=== PATIENT | female | born 1955 | race Caucasian/White ===

== ENCOUNTER 2020-07-01 09:28 | Outpatient (REF) | payer OTHER, SELFPAY ==
[2020-07-01 10:13] LABS: MANUAL DIFF FLAG NO
[2020-07-01 10:23] LABS: Basophils Percent Auto 0.2 % (0-2); Eosinophils Absolute Auto 0.1 X10*3/uL (0.0-0.4); Eosinophils Percent Auto 2.2 % (0-4); Hematocrit 36.3 % (37-47); Hemoglobin 11.9 g/dl (12.0-16.0); Imm Gran Abs Auto 0.01 X10*3/uL (0.00-0.03); Imm Gran Pct Auto 0.2 % (0.0-0.4); Lymphocytes Absolute Auto 1.1 X10*3/uL (1.2-4.9); Lymphocytes Percent Auto 25.7 % (20-40); Mean Corpuscular HGB Conc 32.8 g/dl (31.0-35.0); Mean Corpuscular Hemoglobin 30.2 pg (27.0-33.0); Mean Corpuscular Volume 92.1 fL (80-98); Mean Platelet Volume 9.6 fL (9.4-12.3); Monocytes Absolute Auto 0.3 X10*3/uL (0.1-1.2); Monocytes Percent Auto 6.1 % (2-11); Neutrophils Absolute Auto 2.7 X10*3/uL (2.0-8.3); Neutrophils Percent Auto 65.6 % (45-73); Platelet Count 301 X10*3/uL (160-400); Red Blood Count 3.94 X10*6/uL (4.20-5.50); White Blood Count 4.1 X10*3/uL (4.8-10.8)
[2020-07-01 10:51] LABS: Alanine Aminotransferase 14 U/L (0-31); Albumin Level 4.6 g/dL (3.5-5.0); Alkaline Phosphatase 80 U/L (39-117); Anion Gap 11 (12-20); Aspartate Amino Transferase 18 U/L (5-31); Bilirubin Total 0.5 mg/dL (0.0-1.0); Blood Urea Nitrogen 15 mg/dL (9-16); Calcium 9.2 mg/dL (8.4-10.2); Carbon Dioxide 28 mmol/L (22-29); Chloride 105 mmol/L (96-108); Cholesterol 197 mg/dL; Estimated Glomerular Filt Rate > 60; Glucose Fasting 99 mg/dL (60-99); HDL Cholesterol 61 mg/dL; LDL Cholesterol Calculated 121 mg/dl; Potassium 4.4 mmol/l (3.3-5.1); Sodium 140 mmol/L (135-145); Total Protein 7.2 g/dL (6.5-8.0); Triglycerides 79 mg/dL
[2020-07-01 13:26] LABS: TSH reflex Free T4 0.12 mIU/mL (0.32-4.0)
[2020-07-01 14:05] LABS: Free T4 (Free Thyroxine) 1.24 ng/dL (0.71-1.85)
[2020-07-06 19:09] LABS: Vitamin D 25-OH, D2 <4 ng/mL; Vitamin D 25-OH, D3 35 ng/mL; Vitamin D 25-OH, Total 35 ng/mL (30-100)
== END 2020-07-01 09:29 | disposition home or self-care (01) ==
LOC: HO.LAB 09:28
PROVIDERS: PCP Internal Medicine; Visit Provider Internal Medicine
DX: R42 Dizziness and giddiness (principal); E03.9 Hypothyroidism, unspecified; E55.9 Vitamin D deficiency, unspecified; E78.00 Pure hypercholesterolemia, unspecified; E11.9 Type 2 diabetes mellitus without complications
CPT/HCPCS: 36415; 80053; 80061; 82306; 84439; 84443; 85025

== ENCOUNTER 2020-07-29 11:14 | Outpatient (REF) | payer OTHER, SELFPAY ==
--- NOTE | 2020-07-29 11:20 | XR_ITS ---
EXAMINATION: XR RIGHT SHOULDER XR LEFT SHOULDER CLINICAL INFORMATION: Pain COMPARISON: None TECHNIQUE: 4 views right shoulder. 4 views left shoulder. FINDINGS: Right Shoulder: No acute fracture or subluxation. No suspicious focal lesion. There is mild sclerosis of the inferior glenoid. There is hypertrophic change involving the greater tuberosity. There are some erosions involving the expected area of insertion of the rotator cuff upon the proximal humerus. There is proliferative change involving the undersurface of the distal right clavicle. There is no suspicious abnormality in the visualized portion of the chest. There are thoracic osteophytes. Left Shoulder: There is no acute fracture or subluxation. No suspicious focal lesion. There are proliferative changes involving the greater tuberosity and there are erosions involving the proximal humerus including the expected insertion of the rotator cuff. There is some proliferative change involving the inferior aspect of the distal left clavicle. No significant downsloping of the acromion. Equivocal faint amorphous soft tissue calcification adjacent to the greater tuberosity on the axillary view. No suspicious abnormality in the visualized portions of the chest. There are osteophytes in the spine. XR/XR shoulder LT min 2V IMPRESSION: No acute abnormality. Arthritic changes bilaterally.
--- NOTE | 2020-07-29 11:20 | XR_ITS ---
EXAMINATION: XR RIGHT SHOULDER XR LEFT SHOULDER CLINICAL INFORMATION: Pain COMPARISON: None TECHNIQUE: 4 views right shoulder. 4 views left shoulder. FINDINGS: Right Shoulder: No acute fracture or subluxation. No suspicious focal lesion. There is mild sclerosis of the inferior glenoid. There is hypertrophic change involving the greater tuberosity. There are some erosions involving the expected area of insertion of the rotator cuff upon the proximal humerus. There is proliferative change involving the undersurface of the distal right clavicle. There is no suspicious abnormality in the visualized portion of the chest. There are thoracic osteophytes. Left Shoulder: There is no acute fracture or subluxation. No suspicious focal lesion. There are proliferative changes involving the greater tuberosity and there are erosions involving the proximal humerus including the expected insertion of the rotator cuff. There is some proliferative change involving the inferior aspect of the distal left clavicle. No significant downsloping of the acromion. Equivocal faint amorphous soft tissue calcification adjacent to the greater tuberosity on the axillary view. No suspicious abnormality in the visualized portions of the chest. There are osteophytes in the spine. XR/XR shoulder RT min 2V IMPRESSION: No acute abnormality. Arthritic changes bilaterally.
== END 2020-07-29 11:15 | disposition home or self-care (01) ==
LOC: HO.XRAY 11:14
PROVIDERS: PCP Internal Medicine; Visit Provider Student in an Organized Health Care Education/Training Program
DX: M25.511 Pain in right shoulder (principal); M25.512 Pain in left shoulder
CPT/HCPCS: 73030

== ENCOUNTER 2020-09-21 12:12 | Outpatient (REF) | payer OTHER, SELFPAY ==
--- NOTE | ~2020-09-21 | XR_ITS ---
EXAMINATION: KNEE X-RAY CLINICAL INFORMATION: Post knee replacement. Left knee pain. COMPARISON: Previous x-ray most recent May 2019 TECHNIQUE: Standing AP view of both knees and lateral view of the left knee FINDINGS: Left: There is a 3 component knee replacement in satisfactory position. No fracture or dislocation is seen. There is a small joint effusion. Standing AP view of the right knee demonstrates a medial compartment right knee replacement. XR/XR knee LT 2V IMPRESSION: Left knee: Satisfactory appearance of left knee replacement. Small joint effusion. Right knee: Stable appearance of medial compartment right knee replacement.
--- NOTE | ~2020-09-21 | XR_ITS ---
EXAMINATION: KNEE X-RAY CLINICAL INFORMATION: Post knee replacement. Left knee pain. COMPARISON: Previous x-ray most recent May 2019 TECHNIQUE: Standing AP view of both knees and lateral view of the left knee FINDINGS: Left: There is a 3 component knee replacement in satisfactory position. No fracture or dislocation is seen. There is a small joint effusion. Standing AP view of the right knee demonstrates a medial compartment right knee replacement. XR/XR knee standing BI IMPRESSION: Left knee: Satisfactory appearance of left knee replacement. Small joint effusion. Right knee: Stable appearance of medial compartment right knee replacement.
== END 2020-09-21 12:13 | disposition home or self-care (01) ==
LOC: HO.HOSX 12:12
PROVIDERS: Visit Provider Orthopaedic Surgery
DX: M25.562 Pain in left knee (principal); Z96.652 Presence of left artificial knee joint
CPT/HCPCS: 73560

== ENCOUNTER 2020-09-30 13:51 | Outpatient (REF) | payer OTHER, SELFPAY ==
[2020-09-30 15:51] LABS: Baso%MD 0.5 %; Hematocrit 33.8 % (37-47); Hemoglobin 11.1 g/dl (12.0-16.0); IG%MD 0.5 %; Lymph%MD 31.4 %; Mean Corpuscular HGB Conc 32.8 g/dl (31.0-35.0); Mean Corpuscular Hemoglobin 30.8 pg (27.0-33.0); Mean Corpuscular Volume 93.9 fL (80-98); Mean Platelet Volume 9.6 fL (9.4-12.3); Mono%MD 7.7 %; Neut%MD 57.9 %; Platelet Count 265 X10*3/uL (160-400); Red Cell Distribution Width 13.2 % (11.0-16.0); White Blood Count 4.4 X10*3/uL (4.8-10.8)
[2020-09-30 16:17] LABS: C Reactive Protein 0.53 mg/dL (< or = 0.50)
[2020-09-30 17:59] LABS: Erythrocyte Sedimentation Rate 19 MM/HR (0-20)
[2020-09-30 18:02] LABS: Band Neutrophils Percent 4 % (3-5); Eosinophils Absolute Manual 0.1 X10*3/UL (0.0-0.8); Eosinophils Percent Manual 2 % (0-4); Lymphocytes Percent Manual 23 % (20-40); Monocytes Absolute Manual 0.3 X10*3/uL (0.0-1.2); Monocytes Percent Manual 6 % (2-11); Neutrophils Percent Manual 65 % (45-73); Platelet Estimate NORMAL (NORMAL); RBC Morphology NORMAL
[2020-09-30 18:03] LABS: Platelet Morphology Comment NORMAL
== END 2020-09-30 13:52 | disposition home or self-care (01) ==
LOC: HO.LAB 13:51
PROVIDERS: PCP Internal Medicine; Visit Provider Orthopaedic Surgery
DX: M25.462 Effusion, left knee (principal); Z96.652 Presence of left artificial knee joint
CPT/HCPCS: 36415; 73565; 85007; 85027; 85652; 86140

== ENCOUNTER 2021-02-03 09:20 | Outpatient (REF) | payer OTHER, SELFPAY ==
[2021-02-03 13:31] LABS: Alanine Aminotransferase 15 U/L (0-31); Albumin Level 4.3 g/dL (3.5-5.0); Alkaline Phosphatase 71 U/L (39-117); Anion Gap 11 (12-20); Aspartate Amino Transferase 23 U/L (5-31); Bilirubin Total 0.5 mg/dL (0.0-1.0); Blood Urea Nitrogen 11 mg/dL (9-16); Calcium 9.4 mg/dL (8.4-10.2); Carbon Dioxide 30 mmol/L (22-29); Chloride 108 mmol/L (96-108); Cholesterol 133 mg/dL; Estimated Glomerular Filt Rate > 60; Glucose Fasting 99 mg/dL (60-99); HDL Cholesterol 49 mg/dL; LDL Cholesterol Calculated 72 mg/dl; Potassium 5.2 mmol/L (3.3-5.1); Sodium 144 mmol/L (135-145); Total Protein 6.7 g/dL (6.5-8.0); Triglycerides 61 mg/dL
[2021-02-03 13:45] LABS: TSH reflex Free T4 0.35 uIU/mL (0.32-4.0)
[2021-02-07 17:27] LABS: Vitamin D 25-OH, D2 <4 ng/mL; Vitamin D 25-OH, D3 36 ng/mL; Vitamin D 25-OH, Total 36 ng/mL (30-100)
== END 2021-02-03 09:21 | disposition home or self-care (01) ==
LOC: HO.LAB 09:20
PROVIDERS: PCP Internal Medicine; Visit Provider Internal Medicine
DX: E03.9 Hypothyroidism, unspecified (principal); E55.9 Vitamin D deficiency, unspecified; E78.00 Pure hypercholesterolemia, unspecified; E78.5 Hyperlipidemia, unspecified
CPT/HCPCS: 36415; 80053; 80061; 82306; 84443

== ENCOUNTER 2021-03-12 10:05 | Outpatient (REF) | payer OTHER, SELFPAY ==
[2021-03-12 11:47] LABS: Thyroid Stimulating Hormone 2.22 uIU/mL (0.32-4.0)
[2021-03-12 12:04] LABS: Alanine Aminotransferase 13 U/L (0-31); Albumin Level 4.1 g/dL (3.5-5.0); Alkaline Phosphatase 78 U/L (39-117); Anion Gap 12 (12-20); Aspartate Amino Transferase 17 U/L (5-31); Bilirubin Total 0.4 mg/dL (0.0-1.0); Blood Urea Nitrogen 10 mg/dL (9-16); Carbon Dioxide 27 mmol/L (22-29); Chloride 106 mmol/L (96-108); Cholesterol 167 mg/dL; Estimated Glomerular Filt Rate > 60; Glucose Fasting 107 mg/dL (60-99); HDL Cholesterol 52 mg/dL; LDL Cholesterol Calculated 100 mg/dl; Potassium 4.4 mmol/L (3.3-5.1); Sodium 141 mmol/L (135-145); Total Protein 6.7 g/dL (6.5-8.0); Triglycerides 77 mg/dL
[2021-03-12 12:32] LABS: Creatinine Urine 171.86 mg/dL; Microalbum/Creatinine Ratio Ur 8.1 ug/mg cr
== END 2021-03-12 10:06 | disposition home or self-care (01) ==
LOC: HO.LAB 10:05
PROVIDERS: PCP Internal Medicine; Visit Provider Internal Medicine
DX: E11.42 Type 2 diabetes mellitus with diabetic polyneuropathy (principal); E03.9 Hypothyroidism, unspecified; E78.5 Hyperlipidemia, unspecified
CPT/HCPCS: 36415; 80053; 80061; 82043; 84443

== ENCOUNTER 2021-04-09 10:59 | Outpatient (REF) | payer OTHER, SELFPAY ==
--- NOTE | ~2021-04-09 | XR_ITS ---
EXAMINATION: XR KNEE, LEFT XR HAND, RIGHT CLINICAL INFORMATION: Pain. COMPARISON: 09/30/2020 and 05/17/2017 TECHNIQUE: Three-view left knee and 3-view right hand. FINDINGS: Patient is status post left knee 3 component arthroplasty. No acute fracture or dislocation is evident. No evidence of loosening. There is a minimal stable left knee effusion. There is osteopenia present. Three views of the right hand demonstrate osteopenia. No acute fracture or dislocation is evident. Since the previous study, there has been amputation/resection of the 1st distal phalanx. No gas within the soft tissues is appreciated. There is some lucency seen within the 1st proximal phalanx just proximal to the amputation site. There is soft tissue prominence in the region of the amputation, however, no definite erosive change is appreciated. There is some mild spurring about the 5th proximal and distal interphalangeal joint. Previous 5th proximal phalanx fracture is healed. There are some stable lucent regions with surrounding sclerosis which may represent subchondral cysts or erosions about the head of the 3rd middle phalanx, base of the 5th middle phalanx, and base of the 2nd proximal phalanx. There is spurring about the 1st carpometacarpal joint. XR/XR hand RT 2V IMPRESSION: Stable appearance of left knee arthroplasty with minimal effusion. Osteopenia. Degenerative change of the right hand without acute fracture or dislocation. 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
--- NOTE | ~2021-04-09 | XR_ITS ---
EXAMINATION: XR KNEE, LEFT XR HAND, RIGHT CLINICAL INFORMATION: Pain. COMPARISON: 09/30/2020 and 05/17/2017 TECHNIQUE: Three-view left knee and 3-view right hand. FINDINGS: Patient is status post left knee 3 component arthroplasty. No acute fracture or dislocation is evident. No evidence of loosening. There is a minimal stable left knee effusion. There is osteopenia present. Three views of the right hand demonstrate osteopenia. No acute fracture or dislocation is evident. Since the previous study, there has been amputation/resection of the 1st distal phalanx. No gas within the soft tissues is appreciated. There is some lucency seen within the 1st proximal phalanx just proximal to the amputation site. There is soft tissue prominence in the region of the amputation, however, no definite erosive change is appreciated. There is some mild spurring about the 5th proximal and distal interphalangeal joint. Previous 5th proximal phalanx fracture is healed. There are some stable lucent regions with surrounding sclerosis which may represent subchondral cysts or erosions about the head of the 3rd middle phalanx, base of the 5th middle phalanx, and base of the 2nd proximal phalanx. There is spurring about the 1st carpometacarpal joint. XR/XR knee LT 3V IMPRESSION: Stable appearance of left knee arthroplasty with minimal effusion. Osteopenia. Degenerative change of the right hand without acute fracture or dislocation. 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
== END 2021-04-09 11:00 | disposition home or self-care (01) ==
LOC: HO.XRAY 10:59
PROVIDERS: PCP Internal Medicine; Visit Provider Internal Medicine
DX: M25.562 Pain in left knee (principal); M79.641 Pain in right hand
CPT/HCPCS: 73120; 73562

== ENCOUNTER 2021-04-14 07:01 | Outpatient (REF) | payer OTHER, SELFPAY ==
[2021-04-14 09:49] LABS: Alanine Aminotransferase 17 U/L (0-31); Albumin Level 4.4 g/dL (3.5-5.0); Alkaline Phosphatase 85 U/L (39-117); Anion Gap 12 (12-20); Aspartate Amino Transferase 21 U/L (5-31); Bilirubin Total 0.5 mg/dL (0.0-1.0); Blood Urea Nitrogen 9 mg/dL (9-16); C Reactive Protein 0.08 mg/dL (< or = 0.50); Calcium 9.5 mg/dL (8.4-10.2); Carbon Dioxide 30 mmol/L (22-29); Chloride 103 mmol/L (96-108); Estimated Glomerular Filt Rate > 60; Glucose Random 206 mg/dL (60-115); Potassium 4.2 mmol/L (3.3-5.1); Sodium 141 mmol/L (135-145); Total Protein 7.2 g/dL (6.5-8.0)
[2021-04-14 10:00] LABS: Erythrocyte Sedimentation Rate 7 MM/HR (0-20)
== END 2021-04-14 07:02 | disposition home or self-care (01) ==
LOC: HO.LAB 07:01
PROVIDERS: PCP Internal Medicine; Visit Provider Student in an Organized Health Care Education/Training Program
DX: M25.511 Pain in right shoulder (principal); M25.512 Pain in left shoulder
CPT/HCPCS: 36415; 80053; 85652; 86140

== ENCOUNTER → 2021-04-15 09:48 | Outpatient (BNVA) | payer OTHER, SELFPAY | PROVIDERS: PCP Internal Medicine; Visit Provider Student in an Organized Health Care Education/Training Program | DX: M25.512 Pain in left shoulder (principal); M25.511 Pain in right shoulder; E11.40 Type 2 diabetes mellitus with diabetic neuropathy, unspecified; I10 Essential (primary) hypertension; E78.00 Pure hypercholesterolemia, unspecified; E03.9 Hypothyroidism, unspecified; E55.9 Vitamin D deficiency, unspecified; Z87.891 Personal history of nicotine dependence; Z79.4 Long term (current) use of insulin; Z79.899 Other long term (current) drug therapy | CPT/HCPCS: 99212 ==

== ENCOUNTER 2021-07-27 10:45 | Outpatient (REF) | payer OTHER, SELFPAY ==
[2021-07-28 10:52] LABS: BV Int Neg Control Negative (Negative); BV Int Pos Control Positive (Positive)
== END 2021-07-27 10:46 | disposition home or self-care (01) ==
LOC: HO.LAB 10:45
PROVIDERS: PCP Internal Medicine; Visit Provider Obstetrics & Gynecology
DX: N76.0 Acute vaginitis (principal); B96.89 Other specified bacterial agents as the cause of diseases classified elsewhere
CPT/HCPCS: 87480; 87510; 87660; 99212

== ENCOUNTER 2021-08-16 11:57 | Outpatient (REF) | payer OTHER, SELFPAY | END 2021-08-16 11:58 | disposition home or self-care (01) | LOC: HO.LAB 11:57 | PROVIDERS: PCP Internal Medicine; Visit Provider Obstetrics & Gynecology | DX: N90.89 Other specified noninflammatory disorders of vulva and perineum (principal) | CPT/HCPCS: 56605; 88305 ==

== ENCOUNTER 2021-10-20 07:59 | Outpatient (REF) | payer MEDICARE, SELFPAY ==
[2021-10-20 08:22] LABS: MANUAL DIFF FLAG NO
[2021-10-20 08:39] LABS: Basophils Percent Auto 0.2 % (0-2); Eosinophils Absolute Auto 0.1 X10*3/uL (0.0-0.4); Eosinophils Percent Auto 3.3 % (0-4); Hematocrit 34.3 % (37.0-47.0); Hemoglobin 10.9 g/dl (12.0-16.0); Imm Gran Abs Auto 0.01 X10*3/uL (0.00-0.03); Imm Gran Pct Auto 0.2 % (0.0-0.4); Lymphocytes Absolute Auto 1.3 X10*3/uL (1.2-4.9); Lymphocytes Percent Auto 30.4 % (20-40); Mean Corpuscular HGB Conc 31.8 g/dl (31.0-35.0); Mean Corpuscular Hemoglobin 30.7 pg (27.0-33.0); Mean Corpuscular Volume 96.6 fL (80.0-98.0); Mean Platelet Volume 9.6 fL (9.4-12.3); Monocytes Absolute Auto 0.3 X10*3/uL (0.1-1.2); Monocytes Percent Auto 7.7 % (2-11); Neutrophils Absolute Auto 2.5 x10*3/uL (2.0-8.3); Neutrophils Percent Auto 58.2 % (45-73); Platelet Count 273 X10*3/uL (160-400); Red Blood Count 3.55 X10*6/uL (4.20-5.50); Red Cell Distribution Width 12.9 % (11.0-16.0); White Blood Count 4.3 X10*3/uL (4.8-10.8)
[2021-10-20 09:16] LABS: Alanine Aminotransferase 15 U/L (0-31); Albumin Level 4.2 g/dL (3.5-5.0); Alkaline Phosphatase 83 U/L (39-117); Anion Gap 12 (12-20); Aspartate Amino Transferase 19 U/L (5-31); Bilirubin Total 0.5 mg/dL (0.0-1.0); Blood Urea Nitrogen 11 mg/dL (9-16); Calcium 9.6 mg/dL (8.4-10.2); Carbon Dioxide 31 mmol/L (22-29); Chloride 104 mmol/L (96-108); Cholesterol 159 mg/dL; Estimated Glomerular Filt Rate > 60; Glucose Fasting 145 mg/dL (60-99); HDL Cholesterol 63 mg/dL; LDL Cholesterol Calculated 81 mg/dl; Potassium 4.8 mmol/L (3.3-5.1); Sodium 142 mmol/L (135-145); Total Protein 6.9 g/dL (6.5-8.0); Triglycerides 76 mg/dL
[2021-10-20 09:27] LABS: Thyroid Stimulating Hormone 3.81 uIU/mL (0.32-4.0)
[2021-10-20 10:19] LABS: Creatinine Urine 105.65 mg/dL; Microalbum/Creatinine Ratio Ur 5.6 ug/mg cr
[2021-10-24 14:26] LABS: Vitamin D 25-OH, D2 7 ng/mL; Vitamin D 25-OH, D3 21 ng/mL; Vitamin D 25-OH, Total 28 ng/mL (30-100)
== END 2021-10-20 08:00 | disposition home or self-care (01) ==
LOC: HO.LAB 07:59
PROVIDERS: PCP Internal Medicine; Visit Provider Internal Medicine
DX: E03.9 Hypothyroidism, unspecified (principal); E78.5 Hyperlipidemia, unspecified; E11.42 Type 2 diabetes mellitus with diabetic polyneuropathy; D64.9 Anemia, unspecified; E55.9 Vitamin D deficiency, unspecified
CPT/HCPCS: 36415; 80053; 80061; 82043; 82306; 84443; 85025

== ENCOUNTER 2021-12-01 08:15 | Outpatient (REF) | payer OTHER, SELFPAY ==
--- NOTE | ~2021-12-01 | XR_ITS ---
EXAMINATION: XR HAND, RIGHT CLINICAL INFORMATION: Right hand pain. COMPARISON: 04/09/2021 TECHNIQUE: PA, lateral, and oblique views of the right hand. FINDINGS: Presumed resection or amputation of the 1st distal phalanx, similar to previous. There are [id number] degenerative changes throughout the hand including the 1st CMC joint and the interphalangeal joints of the fingers. There is no acute osseous abnormality. No significant change. XR/XR hand RT min 3V IMPRESSION: No acute osseous abnormality. No significant change.
== END 2021-12-01 08:16 | disposition home or self-care (01) ==
LOC: HO.HOSX 08:15
PROVIDERS: Visit Provider Orthopaedic Surgery
DX: M65.4 Radial styloid tenosynovitis [de Quervain] (principal); M79.641 Pain in right hand; E11.42 Type 2 diabetes mellitus with diabetic polyneuropathy; I10 Essential (primary) hypertension; E03.9 Hypothyroidism, unspecified; E78.00 Pure hypercholesterolemia, unspecified; E53.8 Deficiency of other specified B group vitamins; E55.9 Vitamin D deficiency, unspecified; Z89.011 Acquired absence of right thumb; Z87.891 Personal history of nicotine dependence
CPT/HCPCS: 73130; 99202; J1100

== ENCOUNTER 2022-12-16 10:05 | Outpatient (REF) | payer OTHER, SELFPAY ==
[2022-12-16 11:27] LABS: Estimated Average Glucose 134 mg/dL; Hemoglobin A1c % 6.3 %
[2022-12-16 11:33] LABS: Microalbum/Creatinine Ratio Ur 13.5 ug/mg cr
[2022-12-16 11:51] LABS: Alanine Aminotransferase 24 U/L (0-31); Albumin Level 4.4 g/dL (3.5-5.0); Alkaline Phosphatase 61 U/L (39-117); Anion Gap 12 (12-20); Aspartate Amino Transferase 25 U/L (5-31); Bilirubin Total 0.3 mg/dL (0.0-1.0); Blood Urea Nitrogen 13 mg/dL (9-16); Calcium 9.6 mg/dL (8.4-10.2); Carbon Dioxide 28 mmol/L (22-29); Chloride 107 mmol/L (96-108); Cholesterol 210 mg/dL; Estimated Glomerular Filt Rate > 60; Glucose Fasting 134 mg/dL (60-99); HDL Cholesterol 59 mg/dL; LDL Cholesterol Calculated 132 mg/dl; Potassium 5.1 mmol/L (3.3-5.1); Sodium 142 mmol/L (135-145); Total Protein 6.8 g/dL (6.5-8.0); Triglycerides 95 mg/dL
[2022-12-16 11:56] LABS: Thyroid Stimulating Hormone 2.77 uIU/mL (0.32-4.0); Vitamin D 25-OH Total 65.5 ng/mL (>30)
== END 2022-12-16 10:06 | disposition home or self-care (01) ==
LOC: HO.LAB 10:05
PROVIDERS: PCP Internal Medicine; Visit Provider Internal Medicine
DX: E11.42 Type 2 diabetes mellitus with diabetic polyneuropathy (principal); E11.40 Type 2 diabetes mellitus with diabetic neuropathy, unspecified; E55.9 Vitamin D deficiency, unspecified; E03.9 Hypothyroidism, unspecified; E78.5 Hyperlipidemia, unspecified
CPT/HCPCS: 36415; 80053; 80061; 82043; 82306; 83036; 84443

== ENCOUNTER 2023-10-30 13:28 | Outpatient (AMB) | payer OTHER, SELFPAY ==
[2023-10-30 13:40] VITALS: BP 120/76; BMI 30.9
--- NOTE | 2023-10-30 13:40 | A.OFFPC_ITS ---
Vital Signs 10/30/23 13:40 Height 5 ft Weight 158 lb BMI 30.9 BP 120/76 Blood Pressure Location Lt brachial Position Sitting Intake Visit Reasons: ED follow up Intake Note: Patient here for a follow up depression Travel Accommodation Inspector Required: No Accompanied by: Self / Same As Patient Allergies dulaglutide [From Trulicity] Adverse Reaction (Intermediate, Verified 10/30/23 14:02) Vomiting metformin Adverse Reaction (Intermediate, Verified 10/30/23 14:02) Diarrhea Medication List - Last Reconciled 10/30/23 by Yola Hernandez MD alendronate 70 mg PO QWEEK 90 days atorvastatin 40 mg PO BEDTIME 90 days baclofen 10 mg PO TID blood sugar diagnostic (FreeStyle Lite Strips) Use 1 test strip once a day blood sugar diagnostic (Accu-Chek Dulce Plus test strips) As directed test daily blood sugar diagnostic (FreeStyle Lite Strips) Use 1 test strip once a day blood-glucose meter (Accu-Chek Dulce Plus Meter) As directed test daily cholecalciferol (vitamin D3) 25 mcg PO DAILY 90 days cyanocobalamin (vitamin B-12) (Vitamin B-12) 1,000 mcg PO DAILY [diabetic shoes with inserts As directed] diclofenac sodium 1% (Voltaren Arthritis Pain) 2 grams topical QID 30 days dulaglutide (Trulicity) 0.75 mg (0.5 mL) subcut QWEEK duloxetine 30 mg PO DAILY 90 days escitalopram oxalate 20 mg PO DAILY 90 days escitalopram oxalate 10 mg PO DAILY 90 days etodolac 300 mg PO BID 90 days ezetimibe 10 mg PO DAILY fluticasone propionate 50 mcg/actuation 1 spray intranasal DAILY 30 days folic acid 1 mg PO DAILY gabapentin 600 mg PO TID 30 days gabapentin 600 mg PO TID 30 days hydrochlorothiazide 50 mg PO QAM lancets As directed lancets As directed Accucheck lancets- daily linaclotide (Linzess) 145 mcg PO DAILY 90 days lisinopril 5 mg PO DAILY 90 days meclizine 25 mg PO DAILY naproxen 500 mg PO BID 90 days pantoprazole 40 mg PO DAILY 90 days pioglitazone 30 mg PO DAILY 90 days plecanatide (Trulance) 3 mg PO DAILY 90 days sennosides (Senna Lax) 8.6 mg PO BEDTIME PRN 90 days [SplashMaps chair As directed] Synthroid (levothyroxine) 88 mcg PO DAILY 90 days NS valacyclovir 1,000 mg PO DAILY 90 days valacyclovir 1,000 mg PO DAILY Tobacco use date assessed: 10/30/23 Fall risk assessment: No Falls in past year Last assessed Fall Risk: 10/30/23 Dental Screening Dental Screen Date: 10/30/23 Did you have a dental visit in the last 12 months?: Yes Did you have a dental problem in the last 6 months where you did not have access to dental care?: No Was dental information given to patient?: Patient has dentist HPI HPI Comments History of Present Illness Details This is a 68-year-old female with diabetes mellitus type 2, hypertension, hypothyroidism and moderate major depression that comes today for follow-up on her conditions. A1c within goal. Trulicity gives her vomiting and she would like to change it. She use metformin in the past causing diarrhea. Blood pressure stable. TSH was order. Moderate major depression has aggravated by the recently of her brother which about a month ago. I will increase duloxetine. No chest pain or shortness of breath. [facility] Medical History (Updated 10/30/23 @ 14:09 by Yola Hernandez MD) B12 deficiency Right sided sciatica Ingrown toenail Right hand pain Skin lesion Bicytopenia Hemifacial spasm Shortness of breath Neuropathy Mild depression Constipation Osteoporosis Vertigo Hypovitaminosis D Pure hypercholesterolemia Hypothyroidism Essential hypertension Diabetes mellitus Surgical History History of total abdominal hysterectomy and bilateral salpingo-oophorectomy History of amputation of right thumb History of total knee replacement History of bariatric surgery Family History Father Diabetes Mother Myocardial infarction Social History Housing: House Alcohol intake: former Patient Tobacco Use Status: Former Tobacco user Tobacco use type: Cigarette e-Cigarette/Vaping Use: Never Used Second Hand Smoke Exposure: No service: No Current occupational status: unemployed Current occupation: rt hand Cognitive needs: No Hearing needs: No Vision needs: No Questionnaire PHQ-9 Over the last 2 weeks, how often have you been bothered by any of the following problems? 1. Little interest or pleasure in doing things: more than half the days 2. Feeling down, depressed, or hopeless: nearly every day 3. Trouble falling or staying asleep, or sleeping too much: nearly every day 4. Feeling tired or having little energy: nearly every day 5. Poor appetite or overeating: more than half the days 6. Feeling bad about yourself - or that you are a failure or have let yourself or your family down: not at all 7. Trouble concentrating on things, such as reading the newspaper or watching television: more than half the days 8. Moving or speaking so slowly that other people could have noticed. Or the opposite - being so fidgety or restless that you have been moving around a lot more than usual: nearly every day 9. Thoughts that you would be better off or of hurting yourself in some way: not at all Total score: 18 Depression Screening Interpretation: Positive (no suicidal thoughts) Depression Screening Follow-up: Existing condition and Change in Medication Depression Screening Done: Yes 18316 - PHQ-9 Billing: Yes Source: Developed by Drs. Pasquale Mo, Joie Bosch, Garrett Islas and colleagues, with an educational nii from [employer]. Thrive Questionnaire Date Thrive assessed: 10/30/23 I am a: Patient What is your living situation today?: I have a steady place to live Within the past 12 months, did the food you bought not last and you didn't have the money to get more?: Never true Within the past 12 months, did you worry whether your food would run out before you got money to buy more?: Never true Do you have trouble paying for medicines?: No Do you have trouble getting transportation to medical appointments?: No Do you have trouble paying your heating and electricity bill?: No Do you have trouble taking care of your child, family member or friend?: No Do you have trouble with day-to-day activities such as bathing, preparing meals, shopping, managing finances, etc.?: No Are you currently unemployed and looking for a job?: No Are you interested in more education?: No Please select the resources that you would like help with: None Currently or been in a relationship where the following occur: no concerns reported THRIVE Score: 0 AUDIT C Alcohol Use Questionnaire (AUDIT-C) 1. How often do you have a drink containing alcohol?: Never Total Score: 0 EMY-7 AMB Questionnaire EMY-7 Date EMY - 7 assessed: 10/30/23 Feeling nervous, anxious, or on edge: 3 = Nearly every day Not being able to stop or control worryin = Several days Worrying too much about different things: 3 = Nearly every day Trouble relaxin = Several days Being so restless that it is hard to sit still: 0 = Not at all Becoming easily annoyed or irritable: 1 = Several days Feeling afraid as if something awful might happen: 3 = Nearly every day Total EMY-7 score (0-4 normal; 5-9 mild; 10-14 moderate; 15-21 severe): 12 Source: Developed by Drs. Pasquale Mo, Joie Bosch, Garrett Islas and colleagues, with an educational nii from [employer]. EMY-7 Assessment Billing EMY-7 Assessment Tool: EMY-7 Assessment 23126 Review of Systems Const All systems reviewed & are unremarkable except as noted in HPI and below Eyes Reports no additional complaints, Denies change in vision and Denies other visual disturbances Card Denies chest pain at rest, Denies chest pain with activity, Denies edema, Denies irregular heart rhythm, Denies claudication, Denies dyspnea, Denies dyspnea on exertion, Denies orthopnea, Denies paroxysmal nocturnal dyspnea and Denies slow heart rate Resp Denies cough, Denies dyspnea and Denies dyspnea on exertion GI Denies abdominal pain, Denies change in bowel habits, Denies excessive flatus, Denies nausea and Denies vomiting Denies urinary incontinence, Denies urinary hesitancy and Denies urinary urgency Musc Denies abnormal gait, Denies atrophy, Denies deformity and Denies limited range of motion Skin/Breast Denies bleeding lesions, Denies changing lesions and Denies rash Neuro Denies abnormal gait, Denies behavioral changes and Denies lack of coordination Psych Denies behavioral changes Physical exam (Primary Care) Vital Signs: Last Vital Signs BP 120/76 10/30/23 13:40 BMI result Body Mass Index 30.9 Tobacco/Smoking Status: Tobacco use Status Tobacco use date assessed 10/30/23 10/30/23 13:49 Patient Tobacco Use Status Former Tobacco user 10/30/23 13:49 Tobacco use type Cigarette 10/30/23 13:49 e-Cigarette/Vaping Use Never Used 10/30/23 13:49 PHQ-9: PHQ-9 Score PHQ-9: Total score 18 10/30/23 13:49 Depression Screening Interpretation: Positive (no suicidal thoughts) Depression Screening Follow-up: Existing condition and Change in Medication Thrive Assessment: Date of Thrive Assessment Date Thrive assessed 10/30/23 10/30/23 13:49 Currently or been in a relationship where the following occur: no concerns reported Eyes General: appearance normal, both eyes and all related structures Eyelids: Yes eyelids normal Conjunctivae: conjunctivae normal Neck Neck: Yes normal visual inspection and Yes supple Resp Effort & Inspection: normal respiratory effort Auscultation: clear to auscultation bilaterally Cardio Jugular venous distension: no JVD Rate: regular rate Rhythm: regular rhythm Heart sounds: S1 normal heart sound present and S2 normal heart sound present Extrem General: Yes full ROM Psych Affect: Sad affect present Results AMB Hemoglobin A1c AMB Hemoglobin A1c 6.7 % Last Edit by CAROLINE Veronica on 10/30/23 13:4 9 Results Reviewed Results Reviewed: Laboratory Last Values Hgb A1c (Clinic) 6.7 % (4.0-6.0) H 10/30/23 13:39 Assessment and Plan Assessment & Plan (1) Moderate major depression: Code(s): F32.1 - Major depressive disorder, single episode, moderate Plan: Continue escitalopram 30 mg. Increase duloxetine to 60 mg twice a day. Declines counseling. (2) Diabetes mellitus: Code(s): E11.9 - Type 2 diabetes mellitus without complications Qualifiers: Diabetes mellitus type: type 2 Diabetes mellitus intermediate insulin use: without intermission coordinator use Diabetes mellitus complication status: with neurologic complications Diabetes mellitus complication detail: with polyneuropathy Qualified Code(s): E11.42 - Type 2 diabetes mellitus with diabetic polyneuropathy Plan: Continue Actos. Start Ozempic. A1c goal is equal or less than 7%. (3) Essential hypertension: Code(s): I10 - Essential (primary) hypertension Plan: Continue lisinopril and hydrochlorothiazide. Blood pressure goal is equal or less than 130/80. (4) Hypothyroidism: Code(s): E03.9 - Hypothyroidism, unspecified Qualifiers: Hypothyroidism type: unspecified Qualified Code(s): E03.9 - Hypothyroidism, unspecified Plan: Continue levothyroxine. Monitor TSH. Orders: Orders AMB Hemoglobin A1c Today E11.9 - Type 2 diabetes mellitus without complications Medications: New semaglutide (Ozempic) for 4 weeks 0.25 mg (0.368 mL) subcut QWEEK 30 days 1.84 mL 0RF E11.9 - Type 2 diabetes mellitus without complications Changed From duloxetine 30 mg PO DAILY 90 days 90 caps 0RF To duloxetine 30 mg PO BID 90 days 180 caps 1RF Refilled linaclotide (Linzess) 145 mcg PO DAILY 90 days 90 caps 1RF Discontinued dulaglutide (Trulicity) Discontinued Reason: Patient Completed Course 0.75 mg (0.5 mL) subcut QWEEK 2 mL 6RF Coding Level of Care Code Est Pt Level 4 (94278) Diagnoses Moderate major depression F32.1 Type 2 diabetes mellitus with diabetic polyneuropathy, without long-term current use of insulin E11.42 Diabetes mellitus type: type 2 Diabetes mellitus intermediate insulin use: without intermediate use Diabetes mellitus complication status: with neurologic complications Diabetes mellitus complication detail: with polyneuropathy Essential hypertension I10 Hypothyroidism, unspecified type E03.9 Hypothyroidism type: unspecified Additional Codes EMY-7 Assessment Billing - EMY-7 Assessment Tool: EMY-7 Assessment 01237 ([id number]) Time Spent (min) 24
== END 2023-10-30 14:07 | disposition home or self-care (01) ==
PROVIDERS: PCP Internal Medicine; Visit Provider Internal Medicine
DX: F32.1 Major depressive disorder, single episode, moderate (principal); E11.42 Type 2 diabetes mellitus with diabetic polyneuropathy; I10 Essential (primary) hypertension; E03.9 Hypothyroidism, unspecified
CPT/HCPCS: 83036; 96127; 99214

== ENCOUNTER 2024-02-28 09:17 | Outpatient (REF) | payer OTHER, SELFPAY ==
[2024-02-28 09:39] LABS: MANUAL DIFF FLAG NO
[2024-02-28 10:18] LABS: Basophils Percent Auto 0.3 % (0-2); Eosinophils Absolute Auto 0.1 X10*3/uL (0.0-0.4); Eosinophils Percent Auto 1.7 % (0-4); Hematocrit 36.3 % (37.0-47.0); Hemoglobin 11.8 g/dl (12.0-16.0); Imm Gran Abs Auto 0.01 X10*3/uL (0.00-0.03); Imm Gran Pct Auto 0.3 % (0.0-0.4); Lymphocytes Absolute Auto 1.1 X10*3/uL (1.2-4.9); Lymphocytes Percent Auto 32.9 % (20-40); Mean Corpuscular HGB Conc 32.5 g/dl (31.0-35.0); Mean Corpuscular Hemoglobin 31.4 pg (27.0-33.0); Mean Corpuscular Volume 96.5 fL (80.0-98.0); Mean Platelet Volume 11.1 fL (9.4-12.3); Monocytes Absolute Auto 0.4 X10*3/uL (0.1-1.2); Monocytes Percent Auto 10.5 % (2-11); Neutrophils Absolute Auto 1.9 x10*3/uL (2.0-8.3); Neutrophils Percent Auto 54.3 % (45-73); Platelet Count 183 X10*3/uL (160-400); Red Blood Count 3.76 X10*6/uL (4.20-5.50); Red Cell Distribution Width 13.6 % (11.0-16.0); White Blood Count 3.4 X10*3/uL (4.8-10.8)
[2024-02-28 11:20] LABS: Alanine Aminotransferase 21 U/L (0-31); Albumin Level 4.2 g/dL (3.5-5.0); Alkaline Phosphatase 60 U/L (39-117); Anion Gap 12 (12-20); Aspartate Amino Transferase 24 U/L (5-31); Bilirubin Total 0.3 mg/dL (0.0-1.0); Blood Urea Nitrogen 14 mg/dL (9-16); Calcium 9.2 mg/dL (8.4-10.2); Carbon Dioxide 27 mmol/L (22-29); Chloride 106 mmol/L (96-108); Cholesterol 147 mg/dL (<200); Estimated Glomerular Filt Rate > 60; Glucose Fasting 125 mg/dL (60-99); HDL Cholesterol 59 mg/dL (>40); Iron 57 mcg/dL (30-160); LDL Cholesterol Calculated 78 mg/dL (<100); Percent Iron Saturation 16 % (15-50); Potassium 4.5 mmol/L (3.3-5.1); Sodium 140 mmol/L (135-145); Thyroid Stimulating Hormone 12.02 uIU/mL (0.32-4.0); Total Iron Binding Capacity 360 mcg/dL (228-428); Total Protein 6.9 g/dL (6.5-8.0); Triglycerides 50 mg/dL (<150); Unsaturated Iron Binding 303 ug/dL; Vitamin D 25-OH Total 41.8 ng/mL (>30)
[2024-02-28 11:21] LABS: Microalbum/Creatinine Ratio Ur 4.1 ug/mg cr (<30)
[2024-02-28 11:22] LABS: Folate 8.2 ng/mL (> or = 4.0); Vitamin B12 743 pg/mL (200-900)
== END 2024-02-28 09:18 | disposition home or self-care (01) ==
LOC: HO.LAB 09:17
PROVIDERS: PCP Internal Medicine; Visit Provider Internal Medicine
DX: D64.9 Anemia, unspecified (principal); E53.8 Deficiency of other specified B group vitamins; E78.5 Hyperlipidemia, unspecified; E55.9 Vitamin D deficiency, unspecified; E03.9 Hypothyroidism, unspecified; E11.42 Type 2 diabetes mellitus with diabetic polyneuropathy
CPT/HCPCS: 36415; 80053; 80061; 82043; 82306; 82570; 82607; 82746; 83540; 84443; 85025

== ENCOUNTER 2024-02-29 11:21 | Outpatient (AMB) | payer OTHER, SELFPAY ==
--- NOTE | 2024-02-29 11:26 | A.OFFPC_ITS ---
Vital Signs 02/29/24 11:31 Height 5 ft Weight 151 lb BMI 29.5 BP 126/58 L Blood Pressure Location Lt brachial Position Sitting Pulse 76 Pulse Source Pulse Oximeter Pulse Oximetry (%) 98 Oxygen Delivery Method Room Air Intake Visit Reasons: dm, depression Manager Process Required: No Accompanied by: Self / Same As Patient Allergies dulaglutide [From [facility]] Adverse Reaction (Intermediate, Verified 02/29/24 11:34) Vomiting metformin Adverse Reaction (Intermediate, Verified 02/29/24 11:34) Diarrhea Medication List - Last Reconciled 02/29/24 by Yola Hernandez MD alendronate 70 mg PO QWEEK 90 days atorvastatin 40 mg PO BEDTIME 90 days baclofen 10 mg PO TID blood sugar diagnostic (FreeStyle Lite Strips) Use 1 test strip once a day blood sugar diagnostic (Accu-Chek Dulce Plus test strips) As directed test daily blood sugar diagnostic (FreeStyle Lite Strips) Use 1 test strip once a day blood-glucose meter (Accu-Chek Dulce Plus Meter) As directed test daily blood-glucose meter (FreeStyle Lite Meter kit) As directed cholecalciferol (vitamin D3) 25 mcg PO DAILY 90 days cyanocobalamin (vitamin B-12) (Vitamin B-12) 1,000 mcg PO DAILY [diabetic shoes with inserts As directed] diclofenac sodium 1% (Voltaren Arthritis Pain) 2 grams topical QID 30 days duloxetine 30 mg PO DAILY 90 days duloxetine 60 mg PO DAILY 30 days escitalopram oxalate 10 mg PO DAILY 90 days escitalopram oxalate 20 mg PO DAILY 90 days etodolac 300 mg PO BID 90 days ezetimibe 10 mg PO DAILY folic acid 1 mg PO DAILY gabapentin 600 mg PO TID 30 days lancets As directed lancets As directed Accucheck lancets- daily levothyroxine (Synthroid) 100 mcg PO DAILY 90 days linaclotide (Linzess) 145 mcg PO DAILY 90 days lisinopril 2.5 mg PO DAILY 90 days naproxen 500 mg PO BID 90 days pantoprazole 40 mg PO DAILY 90 days pioglitazone 30 mg PO DAILY 90 days plecanatide (Trulance) 3 mg PO DAILY 90 days semaglutide (Ozempic) 1 mg (0.75 mL) subcut QWEEK 4 weeks sennosides (Senna Lax) 8.6 mg PO BEDTIME PRN 90 days [stair electric chair As directed] valacyclovir 1,000 mg PO DAILY Tobacco use date assessed: 10/30/23 Dental Screening Dental Screen Date: 10/30/23 HPI HPI Comments History of Present Illness Details This is a 69-year-old female with diabetes mellitus type 2, hypothyroidism, hyperlipidemia and severe major depression that comes today for follow-up on her conditions. A1c within goal. LDL close to goal. TSH elevated and I will increase Synthroid from 88 mcg to 100 mcg. TSH will be repeated in 6 weeks. Patient is aware. She does have severe major depression and she has been taking duloxetine 60 mg instead of 90 in therefore I will send 30 mg to complete 90 mg. She does have a counselor that she will start seen in about 2 weeks. No suicidal thoughts. [facility] Medical History (Updated 02/29/24 @ 12:09 by Yola Hernandez MD) Moderate major depression B12 deficiency Right sided sciatica Ingrown toenail Right hand pain Skin lesion Bicytopenia Hemifacial spasm Shortness of breath Neuropathy Mild depression Constipation Osteoporosis Vertigo Hypovitaminosis D Pure hypercholesterolemia Hypothyroidism Essential hypertension Diabetes mellitus Surgical History History of total abdominal hysterectomy and bilateral salpingo-oophorectomy History of amputation of right thumb History of total knee replacement History of bariatric surgery Family History Father Diabetes Mother Myocardial infarction Social History Housing: House Alcohol intake: former Patient Tobacco Use Status: Former Tobacco user Tobacco use type: Cigarette e-Cigarette/Vaping Use: Never Used Second Hand Smoke Exposure: No service: No Current occupational status: unemployed Current occupation: rt hand Cognitive needs: No Hearing needs: No Vision needs: No Questionnaire PHQ-9 Over the last 2 weeks, how often have you been bothered by any of the following problems? 1. Little interest or pleasure in doing things: nearly every day 2. Feeling down, depressed, or hopeless: nearly every day 3. Trouble falling or staying asleep, or sleeping too much: nearly every day 4. Feeling tired or having little energy: nearly every day 5. Poor appetite or overeating: more than half the days 6. Feeling bad about yourself - or that you are a failure or have let yourself o r your family down: nearly every day 7. Trouble concentrating on things, such as reading the newspaper or watching television: nearly every day 8. Moving or speaking so slowly that other people could have noticed. Or the opposite - being so fidgety or restless that you have been moving around a lot more than usual: more than half the days 9. Thoughts that you would be better off or of hurting yourself in some way: several days Total score: 23 Depression Screening Interpretation: Positive (no suicidal thoughts) Depression Screening Follow-up: Existing condition, In treatment, Community Mental Health Worker F/U and Follow-up Visit Requested Depression Screening Done: Yes 87863 - PHQ-9 Billing: Yes Source: Developed by Drs. Pasquale Mo, Joie Bosch, Garrett Islas and colleagues, with an educational nii from [employer]. Thrive Questionnaire Date Thrive assessed: 10/30/23 EMY-7 AMB Questionnaire EMY-7 Date EMY - 7 assessed: 10/30/23 Source: Developed by Drs. Pasquale Mo, Joie Bosch, Garrett Islas and colleagues, with an educational nii from [employer]. Review of Systems Const All systems reviewed & are unremarkable except as noted in HPI and below Card Denies chest pain at rest, Denies chest pain with activity, Denies edema, Denies irregular heart rhythm, Denies claudication, Denies dyspnea, Denies dyspnea on exertion, Denies orthopnea, Denies paroxysmal nocturnal dyspnea and Denies slow heart rate Resp Denies cough, Denies dyspnea and Denies dyspnea on exertion Neuro Denies lack of coordination Physical exam (Primary Care) Vital Signs: Last Vital Signs Pulse 76 02/29/24 11:31 BP 126/58 L 02/29/24 11:31 Pulse Ox 98 02/29/24 11:31 Oxygen Delivery Method Room Air 02/29/24 11:31 BMI result Body Mass Index 29.5 Tobacco/Smoking Status: Tobacco use Status Tobacco use date assessed 10/30/23 02/29/24 11:27 Patient Tobacco Use Status Former Tobacco user 02/29/24 11:27 Tobacco use type Cigarette 02/29/24 11:27 e-Cigarette/Vaping Use Never Used 02/29/24 11:27 PHQ-9: PHQ-9 Score PHQ-9: Total score 23 02/29/24 11:35 Depression Screening Interpretation: Positive (no suicidal thoughts) Depression Screening Follow-up: Existing condition, In treatment, Community Mental Health Worker F/U and Follow-up Visit Requested Thrive Assessment: Date of Thrive Assessment Date Thrive assessed 10/30/23 02/29/24 11:27 Resp Effort & Inspection: normal respiratory effort Auscultation: clear to auscultation bilaterally Cardio Jugular venous distension: no JVD Rate: regular rate Rhythm: regular rhythm Heart sounds: S1 normal heart sound present and S2 normal heart sound present Extrem General: Yes full ROM Results AMB Hemoglobin A1c AMB Hemoglobin A1c 6.3 % Last Edit by MARIELENA Rojas on 02/29/24 11:40 Assessment and Plan Assessment & Plan (1) Severe recurrent major depression without psychotic features: Code(s): F33.2 - Major depressive disorder, recurrent severe without psychotic features Plan: Continue duloxetine 90 mg. Continue escitalopram 30 mg. Follow-up with counselor. (2) Diabetes mellitus: Code(s): E11.9 - Type 2 diabetes mellitus without complications Qualifiers: Diabetes mellitus type: type 2 Diabetes mellitus keno terminal operator insulin use: without keno terminal operator use Diabetes mellitus complication status: with neurologic complications Diabetes mellitus complication detail: with polyneuropathy Qualified Code(s): E11.42 - Type 2 diabetes mellitus with diabetic polyneuropathy Plan: Continue Actos and Ozempic. A1c goal is equal or less than 7%. (3) Hypothyroidism: Code(s): E03.9 - Hypothyroidism, unspecified Qualifiers: Hypothyroidism type: unspecified Qualified Code(s): E03.9 - Hypothyroidism, unspecified Plan: Increase Synthroid from 88 mcg to 100 mcg. Repeat TSH in 6 weeks. (4) Pure hypercholesterolemia: Code(s): E78.00 - Pure hypercholesterolemia, unspecified Plan: Continue statins and Zetia. LDL goal is less than 70. Orders: Orders AMB Hemoglobin A1c Today E11.42 - Type 2 diabetes mellitus with diabetic polyneuropathy Thyroid Stimulating Hormone 6 Weeks E03.9 - Hypothyroidism, unspecified Medications: New lisinopril 2.5 mg PO DAILY 90 days 90 tabs 1RF levothyroxine (Synthroid) 100 mcg PO DAILY 90 days 90 tabs 0RF blood-glucose meter (FreeStyle Lite Meter kit) As directed 1 ea 0RF E11.42 - Type 2 diabetes mellitus with diabetic polyneuropathy Refilled escitalopram oxalate 10 mg PO DAILY 90 days 90 tabs 1RF diclofenac sodium 1% (Voltaren Arthritis Pain) apply to single elbow, wrist or hand; for hand includes palm/fingers/back of hand 2 grams topical QID 30 days 100 grams 1RF folic acid 1 mg PO DAILY 90 tabs 3RF duloxetine 30 mg PO DAILY 90 days 90 caps 1RF duloxetine 60 mg PO DAILY 30 days 30 caps 0RF escitalopram oxalate 20 mg PO DAILY 90 days 90 tabs 0RF semaglutide (Ozempic) 1 mg (0.75 mL) subcut QWEEK 4 weeks 3 mL 6RF E11.42 - Type 2 diabetes mellitus with diabetic polyneuropathy blood sugar diagnostic (FreeStyle Lite Strips) Use 1 test strip once a day 100 ea 1RF E11.42 - Type 2 diabetes mellitus with diabetic polyneuropathy Discontinued hydrochlorothiazide Discontinued Reason: Patient Completed Course 50 mg PO QAM 28 tabs 6RF Synthroid (levothyroxine) Discontinued Reason: No Longer Medically Relevant 88 mcg PO DAILY 90 days 90 tabs 1RF NS lisinopril Discontinued Reason: Patient Completed Course 5 mg PO DAILY 90 days 90 tabs 3RF fluticasone propionate 50 mcg/actuation Discontinued Reason: Patient Completed Course 1 spray intranasal DAILY 30 days 16 grams 1RF Coding Level of Care Code Est Pt Level 4 (72280) Complex EM visit Add On G2211 Diagnoses Severe recurrent major depression without psychotic features F33.2 Type 2 diabetes mellitus with diabetic polyneuropathy, without long-term current use of insulin E11.42 Diabetes mellitus type: type 2 Diabetes mellitus keno terminal operator insulin use: without shelter use Diabetes mellitus complication status: with neurologic complications Diabetes mellitus complication detail: with polyneuropathy Hypothyroidism, unspecified type E03.9 Hypothyroidism type: unspecified Pure hypercholesterolemia E78.00 Time Spent (min) 22
[2024-02-29 11:31] VITALS: BP 126/58; PULSE 76; O2SAT 98; BMI 29.5
== END 2024-02-29 11:48 | disposition home or self-care (01) ==
PROVIDERS: PCP Internal Medicine; Visit Provider Internal Medicine
DX: F33.2 Major depressive disorder, recurrent severe without psychotic features (principal); E11.42 Type 2 diabetes mellitus with diabetic polyneuropathy; E03.9 Hypothyroidism, unspecified; E78.00 Pure hypercholesterolemia, unspecified
CPT/HCPCS: 83036; 99214; G2211

== ENCOUNTER → 2024-04-25 13:50 | Outpatient (RCR) | payer OTHER, SELFPAY ==
[2021-01-11 11:57] VITALS: BP 128/56; PULSE 66; RESP 12; TEMP 36.4; O2SAT 96; BMI 33.4
--- NOTE | 2021-01-11 12:39 | PM.HEMONCPN ---
Medical Summary - Medical Summary Date of Service: 01/11/21 Chief complaint: Follow-up Medical Summary: Diagnosis: Chronic iron deficiency anemia Negative EGD. She refused colonoscopy in 2018. Interval History Interval history: Patient is here in follow-up. She was last seen in 2018. She is here because of fatigue and she thinks that she may need IV iron again. She tried oral iron in the past but it did not agree with her, cause severe constipation. She denies any exertional chest pain or shortness of breath. No dizziness or palpitation. She feels tired all the time and very sleepy. She denies any change in bowel habits. She denies hematochezia or melena. No dyspepsia or heartburn symptoms. She has received both doses of COVID-19 vaccination. She is not on any new medications and has not had any interim medical problems. Review of Systems - Constitutional Reports as per HPI, Reports no additional constitutional complaints - Cardiovascular Reports no additional cardiovascular complaints - Respiratory Reports no additional respiratory complaints - Gastrointestinal Reports no additional gastrointestinal complaints [facility] Medical History: Medical History (Last Updated 10/07/20 @ 11:07 by Yola Hernandez MD) Bicytopenia Constipation Diabetes mellitus Essential hypertension Hemifacial spasm Hypothyroidism Hypovitaminosis D Mild depression Neuropathy Osteoporosis Pure hypercholesterolemia Shortness of breath Vertigo Family History: Family History (Last Reviewed 10/07/20 @ 11:11 by Yola Hernandez MD) Father Diabetes Mother Myocardial infarction Surgical History: Surgical History (Last Reviewed 10/07/20 @ 11:12 by Yola Hernandez MD) History of amputation of right thumb History of bariatric surgery History of total abdominal hysterectomy and bilateral salpingo-oophorectomy History of total knee replacement Social History: Social History (Last Updated 01/11/21 @ 12:00 by Kaylah Zamorano) Alcohol History: Alcohol intake: former Alcohol History Details: Alcohol intake frequency: does not drink Tobacco History: Smoking Status: Former smoker Tobacco Type: Cigarette Packs Per Day: 2 Smoking Quit Date: 1991 Substance Use History: Use of substances other than those prescribed or required for medical reasons: No Smoking status: Former smoker Oncology Screenings - ECOG Performance Status ECOG Performance Status: 1 Home Medications and Allergies Home Medications Medication Instructions Recorded Confirmed Type lancets 28 gauge #100 ea 06/09/20 01/11/21 History linaclotide 145 mcg capsule 145 mcg PO DAILY 06/09/20 01/11/21 History meclizine 25 mg tablet 25 mg PO DAILY 06/09/20 01/11/21 History naproxen 500 mg tablet 500 mg PO BID 06/09/20 01/11/21 History Allergies Allergy/AdvReac Type Severity Reaction Status Date / Time No Known Allergies Allergy Verified 10/07/20 11:04 Exam Vital signs: Vital Signs Temp 97.5 F 01/11/21 11:57 Pulse 66 01/11/21 11:57 Resp 12 01/11/21 11:57 BP 128/56 L 01/11/21 11:57 Pulse Ox 96 01/11/21 11:57 Intake & Output 01/10/21 01/11/21 01/11/21 18:59 06:59 18:59 Other: Weight 77.6 kg Weight in Grams 97135 Weight 77.6 kg Body Mass Index 33.4 - Constitutional Present: no acute distress - Routine HEENT Exam Head: Present: normal inspection Eye: Present: EOMI - Routine Neck Exam Present: full ROM. Absent: lymphadenopathy - Routine Respiratory Exam Present: CTAB - Routine Cardiovascular Exam Cardiovascular: Present: S1, S2 - Routine Abdominal Exam Present: soft - Routine Extremities Exam Absent: pedal edema - Routine Skin Exam Present: intact. Absent: cyanosis Data - Labs CBC & Chem 7: 01/11/21 12:50 Progress Note: A/P (1) Iron deficiency anemia Status: Chronic Assessment and plan: 1. This is a 65-year-old woman with iron deficiency anemia, this has been chronic. She has had an endoscopy in 2016 which showed mild inflammation. She has never undergone colonoscopy. She reports no symptoms of acute or chronic blood loss or chronic GI symptoms. Celiac antibody panel was negative. Hematological workup showed mildly decreased vitamin B12 level, rest negative. Blood work today shows mild normocytic anemia with no evidence of iron deficiency. Vitamin B12 and folate levels are pending. Follow-up in 6 months. - Time Spent With Patient Total time spent is greater than 50% in coordination of care (as documented) at patient's floor/unit and/or counseling patient: 15 - 24 minutes
[2021-01-11 12:52] LABS: MANUAL DIFF FLAG NO
[2021-01-11 12:57] LABS: Basophils Percent Auto 0.4 % (0-2); Eosinophils Absolute Auto 0.1 X10*3/uL (0.0-0.4); Eosinophils Percent Auto 1.6 % (0-4); Hematocrit 35.3 % (37-47); Hemoglobin 11.4 g/dl (12.0-16.0); Imm Gran Abs Auto 0.02 X10*3/uL (0.00-0.03); Imm Gran Pct Auto 0.4 % (0.0-0.4); Lymphocytes Absolute Auto 1.4 X10*3/uL (1.2-4.9); Lymphocytes Percent Auto 26.9 % (20-40); Mean Corpuscular HGB Conc 32.3 g/dl (31.0-35.0); Mean Corpuscular Hemoglobin 31.1 pg (27.0-33.0); Mean Corpuscular Volume 96.2 fL (80-98); Mean Platelet Volume 9.4 fL (9.4-12.3); Monocytes Absolute Auto 0.3 X10*3/uL (0.1-1.2); Monocytes Percent Auto 5.4 % (2-11); Neutrophils Absolute Auto 3.3 X10*3/uL (2.0-8.3); Neutrophils Percent Auto 65.3 % (45-73); Platelet Count 269 X10*3/uL (160-400); Red Blood Count 3.67 X10*6/uL (4.20-5.50)
--- NOTE | 2021-01-11 13:33 | MHC.HEMONCMA ---
Patient came in for a follow up today, states that she is doing well. Clinical summary was reviewed and updated. Patient had labs and will return in 3 months for a follow up.
[2021-01-11 13:37] LABS: Iron 77 mcg/dL (30-160); Percent Iron Saturation 20 % (15-50); Total Iron Binding Capacity 392 mcg/dL (228-428); Unsaturated Iron Binding 315 ug/dL
[2021-01-11 14:12] LABS: Folate 2.6 ng/mL (> or = 4.0); Vitamin B12 212 pg/mL (200-900)
--- NOTE | 2021-01-29 09:11 | MHC.HEMONC ---
pt called and spoke to Leticia in [place]. She requests iron infusion because b12 pills are making her constipated. I spoke with Dr Ha and she wants pt to be sure to take folate as well. We will start b12 injections weekly x 4 then monthly. If these do not help her she could get iron.
--- NOTE | 2022-11-24 14:01 | MHC.HEMONC ---
Triage call-received call from [facility] requesting refill on B-12 1000 mcg daily. Request given to Dr Keller (covering for Dr Ha)
--- NOTE | 2022-11-24 16:28 | MHC.HEMONC ---
Script for B-12 1000mcg QD called to [facility] per Dr Keller request.
== END | disposition home or self-care (01) ==
LOC: HO.ONC 01-11 11:46
PROVIDERS: PCP Internal Medicine; Visit Provider Internal Medicine
DX: D50.9 Iron deficiency anemia, unspecified (principal)
CPT/HCPCS: 36415; 82607; 82746; 83540; 85025; 99213

== ENCOUNTER 2024-05-25 08:48 | Outpatient (REF) | payer OTHER, SELFPAY ==
[2024-05-25 09:54] LABS: Alanine Aminotransferase 20 U/L (0-31); Albumin Level 4.3 g/dL (3.5-5.0); Alkaline Phosphatase 76 U/L (39-117); Anion Gap 10 (12-20); Aspartate Amino Transferase 24 U/L (5-31); Bilirubin Total 0.4 mg/dL (0.0-1.0); Blood Urea Nitrogen 10 mg/dL (9-16); Calcium 9.7 mg/dL (8.4-10.2); Carbon Dioxide 30 mmol/L (22-29); Chloride 106 mmol/L (96-108); Estimated Glomerular Filt Rate > 60; Glucose Fasting 123 mg/dL (60-99); Potassium 4.3 mmol/L (3.3-5.1); Sodium 142 mmol/L (135-145)
[2024-05-25 10:10] LABS: TSH reflex Free T4 0.08 uIU/mL (0.32-4.0)
[2024-05-25 11:37] LABS: Free T4 (Free Thyroxine) 1.01 ng/dL (0.71-1.85)
== END 2024-05-25 08:49 | disposition home or self-care (01) ==
LOC: HO.LAB 08:48
PROVIDERS: PCP Internal Medicine; Referring Provider Internal Medicine; Visit Provider Physician Assistant
DX: E11.42 Type 2 diabetes mellitus with diabetic polyneuropathy (principal); E03.9 Hypothyroidism, unspecified
CPT/HCPCS: 36415; 80053; 84439; 84443

== ENCOUNTER 2024-06-05 10:42 | Outpatient (REF) | payer OTHER, SELFPAY ==
[2024-06-05 12:15] LABS: Appearance Urine Clear; Color Urine Yellow; Glucose Urine UA Negative (Negative); Leukocyte Esterase Urine Trace (Negative); Nitrite Urine Negative (Negative); PH 5.5 (5.0-9.0); Specific Gravity - Urine 1.025 (1.005-1.025); UMIC TRIGGER UACC YES; Urine Blood Negative (Negative); Urine Ketones Trace mg/dL (Negative); Urine Protein Negative (Neg-Trace)
[2024-06-05 12:19] LABS: Bacteria Urine None Seen (None Seen); Hyaline Casts Urine 0-2 /LPF (0-2); RBC Urine 0-2 /HPF (0-2); Squamous Epithelial Cell Urine 0-2 /HPF (0-2); WBC Urine 0-5 /HPF (0-5)
[2024-06-05 13:00] LABS: Thyroid Stimulating Hormone 0.16 uIU/mL (0.32-4.0)
== END 2024-06-05 10:43 | disposition home or self-care (01) ==
LOC: HO.LAB 10:42
PROVIDERS: PCP Internal Medicine; Visit Provider Internal Medicine
DX: E03.9 Hypothyroidism, unspecified (principal)
CPT/HCPCS: 36415; 81001; 81003; 84443

== ENCOUNTER 2024-07-25 13:16 | Outpatient (REF) | payer OTHER, SELFPAY ==
[2024-07-25 14:35] LABS: Thyroid Stimulating Hormone 6.13 uIU/mL (0.32-4.0)
--- OUTSIDE RECORDS SUMMARY | 2024-07-31 02:22 | XMS_ITS | Data Portability ---
Author Organization [place] [place] [facility] Address [address] [place] [phone] Care Team Providers Care Division Human Resources Manager Name Role Phone HIM CCA OTHER Assessment Encounter Date Assessment Date Assessment LastModified by Organization Details LastModified Time 05/03/2024 05/03/2024 I provided real -time medical direction via phone for this encounter and was available for additional phone-based assistance as needed. I have reviewed and agree with the Assessment and Plan as documented by the Automotive Worker Foreman. Patient given the opportunity to ask questions. Our service contacted for an assessment of: Rash As per above, patient patient with 2 areas of her feet that are of concern. Please see uploaded pictures. Neither is symptomatic. This has been present for quite some period of time. Per outbound sales specialist on the scene, vital signs are stable. Impression: The 1st picture appears to be postinflammatory hyperpigmentation. The 2nd picture appears to be eczema. Differential diagnosis includes fungal. Could also be trauma related to rubbing from shoes and slippers. Plan: Would recommend observation given it is asymptomatic. Could also consider some [id number] hydrocortisone cream. Advised that the patient contact her PCP and on her next appointment follow-up in person otherwise observe for any progression. Allergies: Reviewed PCP f/u: We discussed the diagnostic uncertainty of home visits and the risk associated with this. In this case, the patient and I felt this to be an acceptable and reasonable amount of risk given the benefit of avoiding an ED visit. [email or web address] Not available 05/03/2024 20:22:31 Plan of Treatment Reminders Order Date Submit Date Provider Last Modified By Organization Details Last Modified Time Details Appointments None record ed. Lab None record ed. Referral None record ed. Procedures None record ed. Surgeries None record ed. Imaging None record ed. Medication Orders None record ed. Patient TargetsNo targets recorded. Patient InstructionsNo instructions recorded. Reason for Referral None Reported. Medical Equipment None Reported. Medications Name Sig Start Date Stop Date Status Note LastModified by Organization Details LastModified Time delivery fee active Not Available Not Available Not Available atorvastatin 40 mg tablet active Not Available Not Available Not Available clindamycin HCl 300 mg capsule TAKE 1 CAPSULE BY MOUTH EVERY 6 HOURS UNTIL GONE active Not Available Not Available N ot Available ibuprofen 800 mg tablet TAKE 1 TABLET BY MOUTH EVERY 8 HOURS NEEDED FOR PAIN active Not Available Not Available No t Available Lidocaine Viscous 2 % mucosal solution active Not Available Not Available Not Available hydrochlorot hiazide 50 mg tablet active Not Available Not Available No t Available valacyclovir 1 gram tablet active Not Available Not Available Not Available alendronate 70 mg tablet active Not Available Not Available Not Available Synthroid 100 mcg tablet active Not Available Not Available Not Available cyanocobalam in (vit B-12) 1,000 mcg tablet active Not Available Not Available N ot Available acetaminophe n 500 mg tablet TAKE 2 TABLET BY MOUTH EVERY 6 HOURS NEEDED FOR PAIN active Not Available Not Available No t Available gabapentin 800 mg tablet active Not Available Not Available Not Available baclofen 10 mg tablet active Not Available Not Available No t Available pantoprazole 40 mg tablet,delay ed release active Not Available Not Available N ot Available Synthroid 88 mcg tablet active Not Available Not Available N ot Available lisinopril 5 mg tablet active Not Available Not Available No t Available ibuprofen 600 mg tablet active Not Available Not Available Not Available ferrous sulfate 325 mg (65 mg iron) tablet,delay ed release active Not Available Not Available N ot Available pioglitazone 30 mg tablet active Not Available Not Available Not Available fluticasone propionate 50 mcg/actuatio n nasal spray,suspen chadwick active Not Available Not Available Not Available lisinopril 2.5 mg tablet active Not Available Not Available Not Available naproxen 500 mg tablet active Not Available Not Available No t Available amoxicillin 875 mg-potassium clavulanate 125 mg tablet active Not Available Not Available Not Available oxycodone 5 mg tablet TAKE 1 TABLET BY MOUTH EVERY 4 HOURS NEEDED FOR PAIN DO NOT OPERATE HEAVY MACHINERY UNDER THE INFLUENCE active Not Available Not Available No t Available Botox 100 unit injection active Not Available Not Available No t Available escitalopram 10 mg tablet active Not Available Not Available Not Available escitalopram 20 mg tablet active Not Available Not Available Not Available ezetimibe 10 mg tablet active Not Available Not Available No t Available Vitamin D3 25 mcg (1,000 unit) capsule active Not Available Not Available Not Available duloxetine 30 mg capsule,sony yed release active Not Available Not Available Not Available duloxetine 60 mg capsule,sony yed release active Not Available Not Available Not Available chlorhexidin e gluconate 0.12 % mouthwash TAKE 1 CAPFUL BY MOUTH THREE TIMES A DAY AFTER MEALS. SWISH AND HOLD FOR 2 MINUTES THEN EXPECTORATE active Not Available Not Available Not Available FreeStyle Lite Strips active Not Available Not Available Not Available FreeStyle Glouster Lite kit active Not Available Not Available Not Available diclofenac 1 % topical gel active Not Available Not Available Not Available Refresh Lacri-Lube 56.8 %-42.5 % eye ointment active Not Available Not Available Not Available Linzess 145 mcg capsule active Not Available Not Available Not Available Trulicity 1.5 mg/0.5 mL subcutaneous pen injector active Not Available Not Available Not Available Trulance 3 mg tablet active Not Available Not Available No t Available Ozempic 1 mg/dose (4 mg/3 mL) subcutaneous pen injector active Not Available Not Available Not Available Ozempic 0.25 mg or 0.5 mg (2 mg/3 mL) subcutaneous pen injector active Not Available Not Available Not Available Vitals Date Recorded Respiratory rate Heart rate Oxygen saturation Oxygen saturation in Arterial blood by Pulse oximetry Body temperature Systolic blood pressure Diastolic blood pressure Provider Name and Address Organization Details Last Updated DateTime 4 16 /min 68 /min 98 % 98 % 98.4 [degF] 122 mm[Hg] 58 mm[Hg] Not Available [facility] - production 4 17:29:07 Social History None recorded. Functional Status None recorded. Mental Status None recorded. Family History Nothing Reported. Medical History No medical history recorded. Gynecological HistoryNo gynecological history recorded. Obstetrics History GPAL:G 0 P 0 0 0 0 Past Encounters Encounter ID Performer Location Encounter Start Date Encounter Closed Date Diagnosis/Indication Diagnosis SNOMED-CT Code Diagnosis ICD10 Code [id number] Bette Queen MD [facility] [address] [place] [phone] 05/03/2024 17:28:54 05/03/2024 22:44:04 Localized eruption of skin [id number] R21 Health Concerns Section Related Observation LastModified by Organization Detai ls LastModified Time None Recorded Concern Status LastModified by Organization Details LastModified Time None Recorded Advance Directives Directive None Recorded Payers Encounter Date Sequence Insurance Name Policy Number Policy Pinto Covered Member ID Pinto Member ID Guarantor Name 05/03/[address] [facility] - DOS ON OR AFTER 2022 - DUAL ELIGIBLE - HALF-WAY OPTIONS AND ONE CARE (MEDICARE REPLACEMENT/AD VANTAGE - HMO) Dulce German Zepeda [id number] Dulce Corcoran German Zepeda Notes Date Note Type Note Provider Name and Address Organization Details Recorded Time 05/03/2024 text/html HPI: Mbr is a 69 year old Greenlandic speaking female with significant medial hx including but not all inclusive of hypothyroidism, arthritis, herpes, HTN, forgetfulness, amputation of finger (traumatic amp), osteoporosis, persistent depressive disorder, Type 2 DM, asthma, iron deficiency anemia, Jay's Palsy, and MDD. NKDA. [facility] medical mbr transfer call to the [facility]. Mbr reported foot wound and DM related. Shayna #[id number] from [employer] assisted with call. Mbr describes left foot wound as red in color and non-open. Mbr describes as dry area on foot that sloughs off and leaves nickel sized red colored area. Mbr would like someone could look at it. Mbr denies fever, SOB or chest pain. Offered [facility] and Mbr agreed. Confirmed address and phone/[phone]. Mbr will need Fire Hazard Inspector. Instructed Mbr to go to ER if worsening s/s or develops high fever, drainage, increased redness, chest pain or SOB. Mbr agreed to do. Sent GC activity to CP referencing this TE and Mbr triage. .................... .................... .................... .................... .................... .................... .................... . [facility] Nurse Triage Notes (Nisreen Gonzalez): Chief Complaints: Wound Care PMH: COPD/Asthma, Diabetes, Hypertension, Amputation Comments: HPI reviewed. No further information needed to process visit. .................... .................... .................... .................... .................... .................... .................... . Automotive Worker Foreman Note From Khoa Vazquez: Dispatched to a female pt. with a wound on her foot. pt. was found alert and oriented x3 c/o two spots of concerns on her left foot. one on the inside and one of the outside of her foot no pain but did note they were itchy and had been there about 2 weeks. language barrier all communication done through a slab installer. no history of eczema but did show a history of herpes. pt. provided medication list and noted she was not putting any cream on the area yet. pt. vitals assessed on scene. -chest pain -fever -shortness of breath -abd pain -nvd -weakness -chills -neck pain -back pain -head pain -blurred vision -urinary issues -bowel issues. pt. assessment airway open and patent breathing non labored circulation +radial pulse -heent abnormalities -jvd -tracheal deviation +and= chest rise and fall abd soft and non tender pelvis in tact +cms in all extremities -dcapbtls -stroke scale findings. [facility] [place] and noted it was potentially athletes foot or eczema and if it was not causing her pain or any signs of infection to apply hydrocortisone cream to the area and it would heal. red flag warnings discussed and advised to call 911 if conditions worsened.all times are approx.report completed by kristen vazquez. .................... .................... .................... .................... .................... .................... .................... . Disposition: Fulfilled Bette Queen MD [address] [facility],[address] [facility], [place], [phone], [facility] Shop [facility] 05/03/2024 20:22:50 OBGyn Episode No OBEpisode recorded.
--- OUTSIDE RECORDS SUMMARY | 2024-07-31 02:22 | XMS_ITS | Continuity of Care Document ---
Author Organization [employer] [place] [facility] [employer] Address [address] [place] [phone] Care Team Providers Care Gardening Manager Name Role Phone HIM CCA OTHER Assessment Encounter Date Assessment Date Assessment LastModified by Organization Details LastModified Time 05/03/2024 05/03/2024 I provided real -time medical direction via phone for this encounter and was available for additional phone-based assistance as needed. I have reviewed and agree with the Assessment and Plan as documented by the Low Pressure Boiler Tender. Patient given the opportunity to ask questions. Our service contacted for an assessment of: Rash As per above, patient patient with 2 areas of her feet that are of concern. Please see uploaded pictures. Neither is symptomatic. This has been present for quite some period of time. Per ged tutor on the scene, vital signs are stable. Impression: The 1st picture appears to be postinflammatory hyperpigmentation. The 2nd picture appears to be eczema. Differential diagnosis includes fungal. Could also be trauma related to rubbing from shoes and slippers. Plan: Would recommend observation given it is asymptomatic. Could also consider some fror-xqw-yquovzi hydrocortisone cream. Advised that the patient contact [...] Not Available Not Available Not Available FreeStyle [place] Lite kit active Not Available Not Available [...] Diagnosis/Indication Diagnosis SNOMED-CT Code Diagnosis ICD10 Code [id number] Bette Queen MD [facility] - [facility] [address] [place] [phone] 05/03/2024 17:28:54 05/03/2024 22:44:04 Localized eruption of skin [id number] R21 Health Concerns Section Related Observation LastModified by Organization Detai ls LastModified Time None Recorded Concern Status LastModified by Organization Details LastModified Time None Recorded Payers Encounter Date Sequence Insurance Name Policy Number Policy Pinto Covered Member ID Pinto Member ID Guarantor Name 05/03/2024 1 [facility] - DOS ON OR AFTER 2022 - DUAL ELIGIBLE - SKILLED NURSING OPTIONS AND ONE CARE (MEDICARE REPLACEMENT/AD VANTAGE - HMO) Dulce German Zepeda [id number] Dulce Corcoran German Zepeda Notes Date Note Type Note Provider Name and Address Organization Details Recorded Time 05/03/2024 text/html HPI: Casper is a 69 year old Georgian speaking female with significant medial hx including but not all inclusive of hypothyroidism, arthritis, herpes, HTN, forgetfulness, amputation of finger (traumatic amp), osteoporosis, persistent depressive disorder, Type 2 DM, asthma, iron deficiency anemia, Jay's Palsy, and MDD. NKDA. MSR medical mbr transfer call to the CRU. Mbr reported foot wound and DM related. Shayna #[id number] from [employer] assisted with call. Mbr describes left foot wound as red in color and non-open. Mbr describes as dry area on foot that sloughs off and leaves nickel sized red colored area. Mbr would like someone could look at it. Mbr denies fever, SOB or chest pain. Offered [facility] and Mbr agreed. Confirmed address and phone/[phone]. Mbr will need Juke Box Servicer. Instructed Mbr to go to ER if [...] .................... .................... .................... .................... .................... .................... . Low Pressure Boiler Tender Note From Khoa Vazquez: Dispatched to a [...] language barrier all communication done through a chief deputy court clerk. no history of eczema but did show [...] in all extremities -dcapbtls -stroke scale findings. [facility] contacted and noted it was potentially athletes [...] . Disposition: Fulfilled Bette Queen MD [address] [facility] [place] [facility],[address], [place], [address], [facility] 05/03/2024 20:22:50 OBGyn Episode No OBEpisode recorded.
== END 2024-07-25 13:17 | disposition home or self-care (01) ==
LOC: HO.LAB 13:16
PROVIDERS: PCP Internal Medicine; Visit Provider Internal Medicine
DX: E03.9 Hypothyroidism, unspecified (principal)
CPT/HCPCS: 36415; 84443

== ENCOUNTER 2024-09-30 11:38 | Outpatient (REF) | payer OTHER, SELFPAY ==
[2024-09-30 12:10] LABS: MANUAL DIFF FLAG NO
[2024-09-30 12:39] LABS: Basophils Percent Auto 0.4 % (0-2); Eosinophils Absolute Auto 0.1 X10*3/uL (0.0-0.4); Eosinophils Percent Auto 1.1 % (0-4); Hematocrit 31.5 % (37.0-47.0); Hemoglobin 10.3 g/dl (12.0-16.0); Imm Gran Abs Auto 0.01 X10*3/uL (0.00-0.03); Imm Gran Pct Auto 0.2 % (0.0-0.4); Lymphocytes Absolute Auto 1.3 X10*3/uL (1.2-4.9); Lymphocytes Percent Auto 23.5 % (20-40); Mean Corpuscular HGB Conc 32.7 g/dl (31.0-35.0); Mean Corpuscular Hemoglobin 31.5 pg (27.0-33.0); Mean Corpuscular Volume 96.3 fL (80.0-98.0); Mean Platelet Volume 9.6 fL (9.4-12.3); Monocytes Absolute Auto 0.4 X10*3/uL (0.1-1.2); Monocytes Percent Auto 6.3 % (2-11); Neutrophils Absolute Auto 3.8 x10*3/uL (2.0-8.3); Neutrophils Percent Auto 68.5 % (45-73); Platelet Count 253 X10*3/uL (160-400); Red Blood Count 3.27 X10*6/uL (4.20-5.50); Red Cell Distribution Width 14.4 % (11.0-16.0); White Blood Count 5.6 X10*3/uL (4.8-10.8)
[2024-09-30 12:51] LABS: Appearance Urine Clear; Color Urine Yellow; Glucose Urine UA Negative (Negative); Leukocyte Esterase Urine Negative (Negative); Nitrite Urine Negative (Negative); PH 5.5 (5.0-9.0); Specific Gravity - Urine >= 1.030 (1.005-1.025); Urine Blood Negative (Negative); Urine Ketones Trace mg/dL (Negative); Urine Protein Negative (Neg-Trace)
--- OUTSIDE RECORDS SUMMARY | 2024-09-30 12:57 | XMS_ITS | Continuity of Care Document ---
Author Organization [facility] Address [address] [place] [address]- Care Team Providers Care Blindmaker Name Role Phone Patti Moreland MD Primary Care Physician [id number] Date(s): 08/12/24 - 09/11/[address] [address]- Encounter Type: Triage Allergies, Adverse Reactions, Alerts No Known Medication Allergies Immunizations Given and Recorded Vaccine Date Status Refusal Reason SARS-CoV-2 mRNA ([id number]) vax 01/06/22 Given influenza virus vaccine, inactivated 06/21/19 Chucho rded influenza virus vaccine, inactivated 07/03/18 Chucho rded influenza virus vaccine, inactivated 08/29/17 Chucho rded influenza virus vaccine, inactivated 1 05/30/13 [facility] influenza virus vaccine, inactivated 2 06/14/10 [facility] tetanus-diphtheria toxoids (Td) 04/09/15 Recorded pneumococcal 23-valent vaccine 04/09/15 Recorded pneumococcal 23-valent vaccine 07/04/13 Given tetanus/diphtheria/pertussis, acel(Tdap) 07/04/13 Given 1Result Comment: [05/31/2013] ordered by Esequiel Cook MD 2Admin Note: given by ZULAY GREENWOOD. Medications alcohol prep pad alcohol prep pad, Refills 0, Maintenance, 02/16/16 2:15:36 PM EDT, Compound Start Date: 02/16/16 Status: Ordered Repeat number: 1 Alcohol Wipes See Instructions, # 1 box, Refills 4, Tot. Refills 4, Maintenance, Use as directed for Type 2 Diabetes Mellitus ICD 10 E 11.9. Test 1 times daily., 05/04/16 5:14:29 PM EDT, Compound Start Date: 05/04/16 Status: Ordered Quantity: 1.0 Unit: box Repeat number: 5 alendronate 70 mg oral tablet 1 tablet = 70 mg, By Mouth, Every week, # 4 tablet, 0 Refills, Maintenance, 01/06/22 11:12:00 AM EDT, Tablet, Partial fill upon patient request if the prescription is for a schedule II opioid drug. Start Date: 01/06/22 Status: Ordered Quantity: 4.0 Unit: tablet Repeat number: 1 atorvastatin 40 mg oral tablet 1 tablet, By Mouth, Daily at bedtime, # 28 tablet, 12 Refills, Maintenance, 09/15/23 4:01:00 PM EST,[facility], 153, cm, 08/28/23 10:14:00 EST, Height Start Date: 09/15/23 Status: Ordered Quantity: 28.0 Unit: tablet Repeat number: 1 baclofen 10 mg oral tablet 10 mg, 1, tablet, By Mouth, 3 times a day, # 270 tablet, Refills 0, Maintenance, 01/06/22 11:12:00 AM EDT, Partial fill upon patient request if the prescription is for a schedule II opioid drug. Start Date: 01/06/22 Status: Ordered Quantity: 270.0 Unit: tablet Repeat number: 1 CPAP Machine See Instructions, # 1 each, Refills 0, Tot. Refills 0, Maintenance, AutoCPAP 10- 20 cm H20, use Daily when sleeping, 03/13/23 12:13:00 PM EDT, Supply Start Date: 03/13/23 Status: Ordered Quantity: 1.0 Unit: each Repeat number: 1 CPAP Equipment See Instructions, # 1 each, Refills 0, Tot. Refills 0, Maintenance, To use with CPAP machine, 03/13/23 12:14:00 PM EDT, Supply Start Date: 03/13/23 Status: Ordered Quantity: 1.0 Unit: each Repeat number: 1 Diabetic orthotic shoes Diabetic orthotic shoes, See Instructions, # 1 pair, Refills 0, Tot. Refills 0, Maintenance, Dx: Type 2 Diabetes Mellitus ICD 10 E11, 03/31/16 10:31:26 AM EDT, Compound Start Date: 03/31/16 Status: Ordered Quantity: 1.0 Unit: pair Repeat number: 1 diclofenac potassium 50 mg oral tablet 1 tablet = 50 mg, By Mouth, 2 times a day, PRN for pain, Rx by [facility], # 50 tablet, 0 Refills, Maintenance, 03/28/23 3:37:00 PM EDT, Tablet, [facility], Partial fill upon patient request if the prescription is for a schedule II opioid drug., 153, cm, 02/22/23 10:12:00 EDT, Height, 76, kg, 09/01/21 12:05:00 EST, Dry Weight Start Date: 03/28/23 Status: Ordered Quantity: 50.0 Unit: tablet Repeat number: 1 duloxetine 30 mg oral enteric coated capsule 3 capsule = 90 mg, By Mouth, Daily, do not crush or chew, # 270 capsule, 3 Refills, Maintenance, 03/23/23 1:06:00 PM EDT, CR Capsule, [facility], Partial fill upon patient request if the prescription is for a schedule II opioid drug., 153, cm, 02/22/23 10:12:00 EDT, Height, 76, kg, 09/01/21 12:05:00 EST, Dry Weight Start Date: 03/23/23 Status: Ordered Quantity: 270.0 Unit: capsule Repeat number: 4 escitalopram 10 mg oral tablet 1 tablet = 10 mg, By Mouth, Daily, # 90 tablet, 3 Refills, Maintenance, 02/02/23 5:06:00 PM EDT, Tablet, [facility], Partial fill upon patient request if the prescription is for a schedule II opioid drug., 153, cm, 01/05/23 9:08:00 EDT, Height, 76, kg, 09/01/21 12:05:00 EST, Dry Weight Start Date: 02/02/23 Status: Ordered Quantity: 90.0 Unit: tablet Repeat number: 4 ezetimibe 10 mg oral tablet 1 tablet, By Mouth, Daily, # 28 tablet, 5 Refills, Maintenance, 01/05/24 5:11:00 PM EDT, [facility], 153, cm, 11/07/23 8:26:00 EDT, Height Start Date: 01/05/24 Status: Ordered Quantity: 28.0 Unit: tablet Repeat number: 6 ferrous sulfate 325 mg oral enteric coated tablet See Instructions, @@TAKE 1 TABLET BY MOUTH EVERY OTHER DAY. MAY TAKE WITH FOOD TO MINIMIZE ABDOMINAL DISCOMFORT., # 14 tablet, Refills 4, Maintenance, 08/12/24 3:23:00 PM EST, Instructions Replace Required Details, Route to Pharmacy Electronically, [facility], 153, cm, 11/07/23 8:26:00 EDT, Height Start Date: 08/12/24 Status: Ordered Quantity: 14.0 Unit: tablet Repeat number: 1 fluticasone 50 mcg/inh nasal spray See Instructions, INSTILL 2 SPRAYS INTO EACH NOSTRIL ONCE DAILY., # 16 Gm, 4 Refills, Maintenance, 05/04/22 10:23:00 AM EDT, [facility], 0, INSTILL 2 SPRAYS INTO EACH NOSTRIL ONCE DAILY., 153, cm, 03/17/22 9:39:00 EDT, Height, 76, kg, 09/01/21 12:05:00 EST, Dry Weight Start Date: 05/04/22 Status: Ordered Quantity: 16.0 Unit: g Repeat number: 1 folic acid 1 mg oral tablet 1 mg, 1, tablet, By Mouth, Daily, # 30 tablet, Refills 0, Maintenance, 01/06/22 11:13:00 AM EDT, Partial fill upon patient request if the prescription is for a schedule II opioid drug. Start Date: 01/06/22 Status: Ordered Quantity: 30.0 Unit: tablet Repeat number: 1 Freestyle Lite Lancets See Instructions, # 300 each, Refills 0, Tot. Refills 0, Maintenance, Use as directed for Type 2 Diabetes Mellitus ICD 10 E 11.9. Test 1 times daily., 09/18/17 10:55:03 AM EST, patient is due for office visit and labs before refills will be issued. ew, Compound Start Date: 09/18/17 Stop Date: 12/17/17 Status: Ordered Quantity: 300.0 Unit: each Repeat number: 1 Freestyle Lite Monitor See Instructions, # 1 each, Refills 0, Tot. Refills 0, Maintenance, Use as directed for Type 2 Diabetes Mellitus ICD 10 E 11.9. Test 1 times daily., 01/06/22 11:08:00 AM EDT, Compound, 153, cm, 01/06/22 9:35:00 EDT, Height, 76, kg, 09/01/21 12:05:00 EST, Dry Weight Start Date: 01/06/22 Stop Date: 04/06/22 Status: Ordered Quantity: 1.0 Unit: each Repeat number: 1 Freestyle Lite Test Strips See Instructions, # 300 each, Refills 4, Tot. Refills 4, Maintenance, Use as directed for Type 2 Diabetes Mellitus ICD 10 E 11.9. Test 1 times daily., 09/19/16 4:40:00 PM EST, Compound Start Date: 09/19/16 Stop Date: 12/13/17 Status: Ordered Quantity: 300.0 Unit: each Repeat number: 5 gabapentin 800 mg oral tablet See Instructions, TAKE 1 TABLET BY MOUTH THREE TIMES A DAY, # 84 tablet, 5 Refills, Maintenance, 04/05/24 11:40:00 AM EDT, [facility], 153, cm, 11/07/23 8:26:00 EDT, Height Start Date: 04/05/24 Status: Ordered Quantity: 84.0 Unit: tablet Repeat number: 1 Linzess 145 mcg oral capsule 1 capsule = 145 mcg, By Mouth, Daily, # 30 capsule, 5 Refills, Maintenance, 05/08/23 5:30:00 PM EDT,Capsule, [facility], Partial fill upon patient request if the prescription is for aschedule II opioid drug., 153, cm, 02/22/23 10:12:00 EDT, Height, 76, kg, 09/01/21 12:05:00 EST, Dry Weight Start Date: 05/08/23 Status: Ordered Quantity: 30.0 Unit: capsule Repeat number: 6 pantoprazole 40 mg oral delayed release tablet 1 tablet = 40 mg, By Mouth, Daily, # 90 tablet, 0 Refills, Maintenance, 01/06/22 11:13:00 AM EDT, ECTablet Start Date: 01/06/22 Status: Ordered Quantity: 90.0 Unit: tablet Repeat number: 1 Pen [place], 31 G x 8 mm BD Ultra Fine III See Instructions, # 90 each, Refills 3, Tot. Refills 3, Maintenance, Use once daily with victoza. Dx: T2DM E11., 10/24/16 10:26:00 AM EST, icd 10 e11.9, Compound Start Date: 10/24/16 Status: Ordered Quantity: 90.0 Unit: each Repeat number: 4 pioglitazone 30 mg oral tablet 1 tablet = 30 mg, By Mouth, Daily, # 30 tablet, 0 Refills, Maintenance, 01/06/22 11:13:00 AM EDT, Tablet, Partial fill upon patient request if the prescription is for a schedule II opioid drug. Start Date: 01/06/22 Status: Ordered Quantity: 30.0 Unit: tablet Repeat number: 1 Senna 8.6 mg oral tablet 1 or 2 tablets, By Mouth, Daily at bedtime, PRN, # 60 tablet, Refills 0, Tot. Refills 0, Maintenance, Constipation, 04/28/22 11:34:00 AM EDT, Route to Pharmacy Electronically, [facility] Tablet, Partial fill upon patient request if the prescription is for a schedule II opioid drug., 153, cm, 03/17/22 9:39:00 EDT, Height, 76, kg, 09/01/21 12:05:00 EST, Dry Weight Start Date: 04/28/22 Status: Ordered Quantity: 60.0 Unit: tablet Repeat number: 1 Synthroid 0.088 mg oral tablet See Instructions, 1 tablet PO daily 6 days/week 0.2 tablet PO daily 1 day/week (Total 6.5 tablets/week) Decrease from 1 tablet daily made 04/27/22, # 30 each, 2 Refills, Maintenance, 03/17/22 11:52:00 AM EDT, Tablet, [facility], Partial fill upon patient request if the prescription is for a schedule II opioid drug., 153, cm, 03/17/22 9:39:00 EDT, Height, 76, kg, 09/01/21 12:05:00 EST, Dry Weight Start Date: 03/17/22 Status: Ordered Quantity: 30.0 Unit: each Repeat number: 3 Trulicity Pen 1.5 mg/0.5 mL subcutaneous solution 0.5 mL = 1.5 mg, Subcutaneous Injection, Every week, rotate injection sites, # 2 mL, 0 Refills, Maintenance, 11/13/22 9:07:00 PM EDT, Solution, [facility], Partial fill upon patient request if the prescription is for a schedule II opioid drug., 153, cm, 05/18/22 13:15:00 EDT, Height,76, kg, 09/01/21 12:05:00 EST, Dry Weight Start Date: 11/13/22 Status: Ordered Quantity: 2.0 Unit: mL Repeat number: 1 Trulicity Pen 1.5 mg/0.5 mL subcutaneous solution See Instructions, INJECT 1 PEN SUBCUTANEOSULY ONCE A WEEK. ROTATE INJECTION SITES, # 2 mL, 3 Refills, Maintenance, 07/08/22 9:13:00 AM RAY, [facility], 153, cm, 05/18/22 13:15:00 EDT, Height, 76, kg, 09/01/21 12:05:00 EST, Dry Weight Start Date: 07/08/22 Status: Ordered Quantity: 2.0 Unit: mL Repeat number: 1 Trulicity Pen 1.5 mg/0.5 mL subcutaneous solution See Instructions, INJECT 1 PEN SUBCUTANEOSULY ONCE A WEEK. ROTATE INJECTION SITES, # 2 mL, 0 Refills, Maintenance, 08/01/23 4:55:00 PM [facility], 153, cm, 02/22/23 10:12:00 EDT, Height, 76, kg, 09/01/21 12:05:00 EST, Dry Weight Start Date: 08/01/23 Status: Ordered Quantity: 2.0 Unit: mL Repeat number: 1 Trulicity Pen 1.5 mg/0.5 mL subcutaneous solution See Instructions, INJECT 1 PEN SUBCUTANEOSULY ONCE A WEEK. ROTATE INJECTION SITES, # 2 mL, 0 Refills, Maintenance, 08/01/23 4:55:00 PM [facility], 153, cm, 02/22/23 10:12:00 EDT, Height, 76, kg, 09/01/21 12:05:00 EST, Dry Weight Start Date: 08/01/23 Status: Ordered Quantity: 2.0 Unit: mL Repeat number: 1 valacyclovir 1 gm oral tablet 1 tablet = 1 Gm, By Mouth, 2 times a day, # 20 tablet, 0 Refills, Maintenance, 02/07/23 10:32:00 AM EDT, Tablet, [facility], Partial fill upon patient request if the prescription is for a schedule II opioid drug., 153, cm, 01/05/23 9:08:00 EDT, Height, 76, kg, 09/01/21 12:05:00 EST, Dry Weight Start Date: 02/07/23 Status: Ordered Quantity: 20.0 Unit: tablet Repeat number: 1 Vitamin D3 2000 intl units oral tablet 1 tablet, By Mouth, Daily, # 28 tablet, 0 Refills, Maintenance, 01/09/23 11:29:00 AM EDT, [facility], 153, cm, 01/05/23 9:08:00 EDT, Height, 76, kg, 09/01/21 12:05:00 EST, Dry Weight Start Date: 01/09/23 Status: Ordered Quantity: 28.0 Unit: tablet Repeat number: 1 Voltaren 1% topical gel 1 applicator, Topically, 4 times a day, PRN Pain , Mild, Abie silva aplicacion hasta 4 veces al jody cuando necesita para dolor., # 100 Gm, 1 Refills, Maintenance, 01/31/23 1:38:00 PM EDT, Gel, [facility], BRAND NAME ONLY PLEASE. MEDICALLY NECESSARY, 1 applicator Topically 4 times a day,PRN:Pain , Mild,Instr:Abie silva aplicacion hasta 4 veces al jody cuando necesita para dolor., 153, cm, 01/05/23 9:08:00 EDT, Height, 76, kg, 09/01/21 12:05:00 EST, Dry Weight Start Date: 01/31/23 Status: Ordered Quantity: 100.0 Unit: g Repeat number: 2 Problem List Condition Confirmation Course Effective Dates Status H ealth Status Informant Asthma, Mild Intermittent Confirmed Active Cervicogenic headache Confirmed Active Chronic lower back pain, Lumbar Spondylosis Confirmed Active Depression Confirmed Active Type 2 Diabetes Mellitus Confirmed Active 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 H/O herpes simplex infection Confirmed Active Hyperlipidemia Confirmed Active Hypertension Confirmed Active Hypothyroid Confirmed Active Low back pain Confirmed Active Major depressive disorder Confirmed 4/5/21 Active Muscle spasms of neck Confirmed Active Obese class I Confirmed Active Obesity Confirmed Active Obstructive sleep apnea syndrome, severe Confirmed Active *[facility] [phone] BANKRUPTCY JUDGE REZA FRAZIER Confirmed Active Social History Social History Type Response Smoking Status Former smoker; Other : quit 45 years ago; entered on: 09/01/15 Sex Sex Representation Female (finding) Patient Care team information Care Team Personnel Name: Merly NORTON, Patti Priest Position: [facility] Resident Member Role: PCP [address]: [address] [place] [address] Telecom: Care Team Related Persons Name: ANKITA VICTORIA Insurance Providers Guarantor name: ISELA OWENS Health Plan Information #: 1 Payer: NA Member Number: NA Policy Number: NA Group Number: NA
--- OUTSIDE RECORDS SUMMARY | 2024-09-30 12:58 | XMS_ITS | Clinical Summary ---
Author Organization [facility] Address [id number] [place] [id number] Care Team Providers Care Blocker Metal Base Name Role Phone Yola Hernandez MD Primary Care Provider [phone] Social History Tobacco Use Types Packs/Day Years Used Date Smoking Tobacco: Never Assessed Comments Unknown Sex and Gender Information Value Date Recorded Sex Assigned at Not on file Legal Sex Female 4:49 AM EST Gender Identity Not on file Sexual Orientation Not on file Plan of Treatment Health Maintenance Due Date Last Done Comments Breast Cancer Screening 1955 DTaP,Tdap,and Td Vaccines (1 - Tdap) 01/18/1960 Pneumococcal Vaccine: 50+ Ye ars (1 of 1 - PCV) 2003 Zoster Vaccines (1 of 2) 2003 Colorectal Cancer Screening: Colonoscopy 07/24/2022 Depression Screening 07/24/2022 Falls Risk Assessment 07/24/2022 Hepatitis C Screening 07/24/2022 Osteoporosis Screening (Bone Density Screening) 07/24/2022 Social Influencers of Health Screening 07/24/2022 COVID-19 Vaccine (2023-2 5 season) 2024 Influenza Vaccine (#1) 2024 RSV Immunization Patients 60 + Years Old (1 - 1-dose 75+ series) 01/18/2028 HIB Vaccines Aged Out No longer eligi ble based on patient's age to complete this topic HPV Vaccines Aged Out No longer eligi ble based on patient's age to complete this topic Hepatitis A Vaccines Aged Out No long er eligible based on patient's age to complete this topic Hepatitis B Vaccines Aged Out No long er eligible based on patient's age to complete this topic IPV Vaccines Aged Out No longer eligi ble based on patient's age to complete this topic MMR Vaccines Aged Out No longer eligi ble based on patient's age to complete this topic Meningococcal ACWY Vaccine Aged Out N o longer eligible based on patient's age to complete this topic Meningococcal B Vacine Aged Out No lo nger eligible based on patient's age to complete this topic RSV Immunization Patients Un hira 20 months Aged Out No longer eligible b ased on patient's age to complete this topic Varicella Vaccines Aged Out No longer eligible based on patient's age to complete this topic Care Teams Blocker Metal Base Relationship Specialty Start Date End Date Yola Hernandez MD [address] [place] [address] , [address] [facility] JEAN Mcgowan PCP - General Internal Medicine 02/04/21
--- OUTSIDE RECORDS SUMMARY | 2024-09-30 12:59 | XMS_ITS | Data Portability ---
Author Organization [employer] Address [address] [place] [id number] Care Team Providers Care School Counsellor Name Role Phone HIM CCA OTHER Assessment Encounter Date Assessment Date Assessment LastModified by Organization Details LastModified Time 05/03/2024 05/03/2024 I provided real -time medical direction via phone for this encounter and was available for additional phone-based assistance as needed. I have reviewed and agree with the Assessment and Plan as documented by the High Risk Ob. Patient given the opportunity to ask questions. Our service contacted for an assessment of: Rash As per above, patient patient with 2 areas of her feet that are of concern. Please see uploaded pictures. Neither is symptomatic. This has been present for quite some period of time. Per high school biology teacher on the scene, vital signs are stable. Impression: The 1st picture appears to be postinflammatory hyperpigmentation. The 2nd picture appears to be eczema. Differential diagnosis includes fungal. Could also be trauma related to rubbing from shoes and slippers. Plan: Would recommend observation given it is asymptomatic. Could also consider some bgii-sjf-nhywnsa hydrocortisone cream. Advised that the patient contact [...] Not Available Not Available Not Available FreeStyle [place] Lite kit active Not Available Not Available [...] Diagnosis/Indication Diagnosis SNOMED-CT Code Diagnosis ICD10 Code Diagnosis Note [id number] Bette Queen MD Main - [facility] [address] [place] [phone] 05/03/2024 17:28:54 05/03/2024 22:44:04 Localized eruption of skin [id number] Health Concerns Section Related Observation LastModified by Organization Detai ls LastModified Time None Recorded Concern Status LastModified by Organization Details LastModified Time None Recorded Advance Directives Directive None Recorded Payers Encounter Date Sequence Insurance Name Policy Number Policy Pinto Covered Member ID Pinto Member ID Guarantor Name 05/03/2024 1 [facility] - DOS ON OR AFTER 2022 - DUAL ELIGIBLE - HALFWAY OPTIONS AND ONE CARE (MEDICARE REPLACEMENT/AD VANTAGE - HMO) Dulce German Duane [id number] Dulce Zepeda Notes Date Note Type Note Provider Name and Address Organization Details Recorded Time 05/03/2024 text/html HPI: Mbr is a 69 year old Belarusian speaking female with significant medial hx including but not all inclusive of hypothyroidism, arthritis, herpes, HTN, forgetfulness, amputation of finger (traumatic amp), osteoporosis, persistent depressive disorder, Type 2 DM, asthma, iron deficiency anemia, Jay's Palsy, and MDD. NKDA. [facility] medical mbr transfer call to the [facility]. Mbr reported foot wound and DM related. Shayna #[id number] from [facility] assisted with call. Mbr describes left foot wound as red in color and non-open. Mbr describes as dry area on foot that sloughs off and leaves nickel sized red colored area. Mbr would like someone could look at it. Mbr denies fever, SOB or chest pain. Offered INST[facility] HV and Mbr agreed. Confirmed address and phone/[phone]. Mbr will need Rehabilitation Manager. Instructed Mbr to go to ER if [...] .................... .................... .................... .................... .................... .................... . High Risk Ob Note From Khoa Vazquez: Dispatched to a [...] language barrier all communication done through a pumper gager apprentice. no history of eczema but did show [...] in all extremities -dcapbtls -stroke scale findings. [facility] [place] [...] .................... . Disposition: Fulfilled Bette Queen MD [address] [place] [address],[address] [facility], [place], [phone], [employer] [facility] 05/03/2024 20:22:50 OBGyn Episode No OBEpisode recorded.
[2024-09-30 13:06] LABS: Creatinine Urine 115.65 mg/dL; Microalbum/Creatinine Ratio Ur 12.1 ug/mg cr (<30)
[2024-09-30 13:14] LABS: Alanine Aminotransferase 23 U/L (0-31); Albumin Level 4.3 g/dL (3.5-5.0); Anion Gap 10 (12-20); Aspartate Amino Transferase 32 U/L (5-31); Bilirubin Total 0.3 mg/dL (0.0-1.0); Blood Urea Nitrogen 13 mg/dL (9-16); Calcium 9.2 mg/dL (8.4-10.2); Carbon Dioxide 27 mmol/L (22-29); Chloride 108 mmol/L (96-108); Cholesterol 141 mg/dL (<200); Estimated Glomerular Filt Rate > 60; Glucose Fasting 97 mg/dL (60-99); Iron 59 mcg/dL (30-160); Percent Iron Saturation 17 % (15-50); Potassium 4.1 mmol/L (3.3-5.1); Sodium 141 mmol/L (135-145); Total Iron Binding Capacity 356 mcg/dL (228-428); Total Protein 7.5 g/dL (6.5-8.0); Triglycerides 54 mg/dL (<150); Unsaturated Iron Binding 297 ug/dL
[2024-09-30 13:15] LABS: Alkaline Phosphatase 64 U/L (39-117); HDL Cholesterol 66 mg/dL (>40); LDL Cholesterol Calculated 65 mg/dL (<100)
[2024-09-30 13:30] LABS: Thyroid Stimulating Hormone 6.26 uIU/mL (0.32-4.0); Vitamin D 25-OH Total 43.1 ng/mL (>30)
[2024-09-30 13:42] LABS: Vitamin B12 855 pg/mL (200-900)
== END 2024-09-30 11:39 | disposition home or self-care (01) ==
LOC: HO.LAB 11:38
PROVIDERS: PCP Internal Medicine; Visit Provider Internal Medicine
DX: E53.8 Deficiency of other specified B group vitamins (principal); E78.5 Hyperlipidemia, unspecified; D64.9 Anemia, unspecified; I10 Essential (primary) hypertension; E03.9 Hypothyroidism, unspecified; R39.9 Unspecified symptoms and signs involving the genitourinary system; R80.9 Proteinuria, unspecified; E55.9 Vitamin D deficiency, unspecified
CPT/HCPCS: 36415; 80053; 80061; 81003; 82043; 82306; 82570; 82607; 82746; 83540; 84443; 85025

== ENCOUNTER 2024-10-28 09:42 | Outpatient (AMB) | payer OTHER, SELFPAY ==
--- NOTE | 2024-10-28 09:46 | A.OFFVIS_ITS ---
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 Intake Note: NEW Patient presents today to establish treatment for Type 2 Diabetes Mellitus: Last Diabetic eye exam was on: November, Last Podiatry exam was on: Patient does not see a Tour Sales Representative Most recent HbA1c: 6.9%, 10/28/2024 Random Glucose- 171 mg/dL, Today Make Up Operator Required: Yes Make Up Operator Language: Food Concession Manager Services: Make Up Operator Present Make Up Operator Name: CAROLINE Porter/ADRIANA ANDERSON Accompanied by: Self / Same As Patient Allergies dulaglutide [From [facility]] Adverse Reaction (Intermediate, Verified 02/29/24 11:34) Vomiting metformin Adverse Reaction (Intermediate, Verified 02/29/24 11:34) Diarrhea Medication List - Last Reconciled 10/28/24 by Amber Elizabeth PA-C alendronate 70 mg PO QWEEK 90 days atorvastatin 40 mg PO BEDTIME 90 days baclofen 10 mg PO TID blood sugar diagnostic (Accu-Chek Dulce Plus test strips) As directed test daily blood sugar diagnostic (FreeStyle Lite Strips) Use 1 test strip once a day blood sugar diagnostic (FreeStyle Lite Strips) Use 1 test strip once a day blood-glucose meter (Accu-Chek Dulce Plus Meter) As directed test daily blood-glucose meter (FreeStyle Lite Meter kit) As directed cholecalciferol (vitamin D3) 25 mcg PO DAILY 90 days cyanocobalamin (vitamin B-12) (Vitamin B-12) 1,000 mcg PO DAILY [diabetic shoes with inserts As directed] diclofenac sodium 1% (Voltaren Arthritis Pain) 2 grams topical QID 30 days duloxetine 60 mg PO DAILY 30 days duloxetine 30 mg PO DAILY 90 days escitalopram oxalate 20 mg PO DAILY 90 days escitalopram oxalate 10 mg PO DAILY 90 days etodolac 300 mg PO BID 90 days ezetimibe 10 mg PO DAILY fluticasone propionate 50 mcg/actuation (Flonase Allergy Relief) 1 spray intranasal DAILY 30 days folic acid 1 mg PO DAILY gabapentin 600 mg PO TID 30 days ibuprofen 800 mg PO Q8H PRN 30 days lancets As directed lancets As directed Accucheck lancets- daily levothyroxine 100 mcg PO DAILY 90 days linaclotide (Linzess) 145 mcg PO DAILY 90 days lisinopril 2.5 mg PO DAILY 90 days naproxen 500 mg PO BID 90 days pantoprazole 40 mg PO DAILY 90 days pioglitazone 15 mg PO DAILY plecanatide (Trulance) 3 mg PO DAILY 90 days semaglutide (Ozempic) 2 mg (0.75 mL) subcut QWEEK sennosides (Senna Lax) 8.6 mg PO BEDTIME PRN 90 days [stair electric chair As directed] valacyclovir 1,000 mg PO DAILY HPI HPI 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 A1c today is 6.9. She is currently on Ozempic 1 mg weekly, pioglitazone 30 mg daily She would like to come down on the pioglitazone and go up on the Ozempic. She says that she really wants to lose weight. She has no adverse effects of being on the Ozempic and also has not noticed any weight changes. She has trialed metformin (gi upset), trulicity (vomiting) She states that because she has had diabetes for 25 years she has followed with clam sorter in the past and with diabetic Education. She has a good understanding of her type 2 diabetes and the complications associated with diabetes. She does get sick of checking her fingers regularly as she has been using fingersticks for about 25 years and at different points was also on insulin needing to check more frequently. She reports neuropathy or decreased sensation to her fingertips and she has a history of peripheral neuropathy in her feet as well in his on gabapentin. She has never used a CGM before. Has a fam hx of t2dm Her last TSH was elevated and she did have an increased dose of the levothyroxine. CV: Blood pressure in the office is 110/64. She is currently managed on lisinopril 2.5 mg daily. Cholesterol is managed with atorvastatin 40 mg and Zetia 10 mg. [facility] Medical History (Updated 10/28/24 @ 10:32 by Amber Elizabeth PA-C) Moderate major depression B12 deficiency Right sided sciatica Ingrown toenail Right hand pain Skin lesion Bicytopenia Hemifacial spasm Shortness of breath Neuropathy Mild depression Constipation Osteoporosis Vertigo Hypovitaminosis D Pure hypercholesterolemia Hypothyroidism Essential hypertension Diabetes mellitus Surgical History History of total abdominal hysterectomy and bilateral salpingo-oophorectomy History of amputation of right thumb History of total knee replacement History of bariatric surgery Family History Father Diabetes Mother Myocardial infarction Social History Housing: House Alcohol intake: former Patient Tobacco Use Status: Former Tobacco user Tobacco use type: Cigarette e-Cigarette/Vaping Use: Never Used Second Hand Smoke Exposure: No service: No Current occupational status: unemployed Current occupation: rt hand Cognitive needs: No Hearing needs: No Vision needs: No Physical Exam Vital Signs: Last Vital Signs Pulse 76 10/28/24 09:51 BP 110/64 10/28/24 09:51 Pulse Ox 98 10/28/24 09:51 Oxygen Delivery Method Room Air 10/28/24 09:51 BMI result Body Mass Index 29.7 Const Orientation/consciousness: patient oriented x3 HEENT Ears: hearing grossly normal bilaterally Neck Thyroid: Thyroid normal Lymphatic: no lymphadenopathy noted Resp Auscultation: clear to auscultation bilaterally Cardio Rate: regular rate Rhythm: regular rhythm Heart sounds: S1 normal heart sound present and S2 normal heart sound present Skin General skin exam: no rashes or lesions noted Neuro General: patient oriented x3, gait normal and no focal motor deficits Results AMB Hemoglobin A1c AMB Hemoglobin A1c 6.9 % Last Edit by CAROLINE Porter on 10/28/24 10:08 Results Reviewed Results Reviewed: Laboratory Last Values Glucose (Clinic) 171 mg/dL (60-115) H 10/28/24 09:58 Laboratory Tests 09/30/24 10/28/24 12:08 10:07 Sodium 141 Potassium 4.1 Chloride 108 Carbon Dioxide 27 Anion Gap 10 L BUN 13 Creatinine 0.68 Estimated GFR > 60 Hgb A1c (Clinic) 6.9 H AST 32 H ALT 23 Triglycerides 54 Cholesterol 141 LDL Cholesterol, Calc 65 HDL Cholesterol 66 TSH 6.26 H Assessment & Plan Assessment & Plan (1) Type 2 diabetes mellitus with peripheral neuropathy: Code(s): E11.42 - Type 2 diabetes mellitus with diabetic polyneuropathy Category: Medical Plan: Spent about 75 minutes in vhho-dj-yaov time today discussing the pathophysiology of diabetes and complications associated with diabetes including but not limited to amputations, infections, heart attacks and strokes. She does have peripheral neuropathy and this does impair her from checking her blood sugars at times so we have ordered a foodjunky Christian 3 sensor. I have downloaded the allison today on the phone for her and paired the device with the sensor that we provided in the office. We did discuss trying to get the sensors covered by insurance given that she is not on insulin but does have peripheral neuropathy. Reviewed rule of 15. Discussed diet changes and lifestyle modifications. I have encouraged her to reduce her carbohydrate and sugar intake. Increase Ozempic to 2 mg. Decreased pioglitazone to 15 mg. She will monitor her diet closely and her blood sugars. If her blood sugars go up discussed with her that she should go back up to the 30 mg of the pioglitazone. Advised to follow up in 3 months. Sooner if needed. Labs ordered today to complete prior to our appointment. (2) Essential hypertension: Code(s): I10 - Essential (primary) hypertension Category: Medical Plan: WNL. Continue current regimen (3) Hypothyroidism: Code(s): E03.9 - Hypothyroidism, unspecified Category: Medical Qualifiers: Hypothyroidism type: unspecified Qualified Code(s): E03.9 - Hypothyroidism, unspecified Plan: Recently had levothyroxine increased. Compliant with medication. (4) Pure hypercholesterolemia: Code(s): E78.00 - Pure hypercholesterolemia, unspecified Category: Medical Plan: Well-controlled. Orders: Orders AMB Hemoglobin A1c Today Z86.39 - Personal history of other endocrine, nutritional and metabolic disease Medications: New blood-glucose sensor (FreeStyle Christian 3 Plus Sensor device) Use daily As directed to monitor glucose 2 ea 5RF E11.42 - Type 2 diabetes mellitus with diabetic polyneuropathy semaglutide (Ozempic) 2 mg (0.75 mL) subcut QWEEK 3 mL 4RF pioglitazone 15 mg PO DAILY 90 tabs 1RF Discontinued pioglitazone Discontinued Reason: Doctor's Order 30 mg PO DAILY 90 days 90 tabs 0RF semaglutide (Ozempic) Discontinued Reason: Doctor's Order 1 mg (0.75 mL) subcut QWEEK 4 weeks 3 mL 0RF E11.42 - Type 2 diabetes mellitus with diabetic polyneuropathy Coding Level of Care Code New Pt Level 5 (25301) Complex EM visit Add On G2211 Diagnoses Type 2 diabetes mellitus with peripheral neuropathy E11.42 Essential hypertension I10 Hypothyroidism, unspecified type E03.9 Hypothyroidism type: unspecified Pure hypercholesterolemia E78.00
[2024-10-28 09:51] VITALS: BP 110/64; PULSE 76; O2SAT 98; BMI 29.7
[2024-10-28 10:03] LABS: Glucose, Whole Blood 171 mg/dL (60-115)
--- OUTSIDE RECORDS SUMMARY | 2024-10-28 10:37 | XMS_ITS | Data Portability ---
Author Organization [facility] Address [address] [place] [id number] Care Team Providers Care Watch Repair Person Name Role Phone HIM CCA OTHER Assessment Encounter Date Assessment Date Assessment LastModified by Organization Details LastModified Time 05/03/2024 05/03/2024 I provided real -time medical direction via phone for this encounter and was available for additional phone-based assistance as needed. I have reviewed and agree with the Assessment and Plan as documented by the Raveler. Patient given the opportunity to ask questions. Our service contacted for an assessment of: Rash As per above, patient patient with 2 areas of her feet that are of concern. Please see uploaded pictures. Neither is symptomatic. This has been present for quite some period of time. Per cable placer on the scene, vital signs are stable. Impression: The 1st picture appears to be postinflammatory hyperpigmentation. The 2nd picture appears to be eczema. Differential diagnosis includes fungal. Could also be trauma related to rubbing from shoes and slippers. Plan: Would recommend observation given it is asymptomatic. Could also consider some sweq-vrh-luepxje hydrocortisone cream. Advised that the patient contact [...] Not Available Not Available Not Available FreeStyle [place] Lite kit active Not Available Not Available [...] SNOMED-CT Code Diagnosis ICD10 Code Diagnosis Note [id number] Bette Queen MD Main - [facility] [address] [place] [phone] 05/03/2024 17:28:54 05/03/2024 22:44:04 Localized eruption of skin [id number] R21 Health Concerns Section Related Observation LastModified by Organization Detai ls LastModified Time None Recorded Concern Status LastModified by Organization Details LastModified Time None Recorded Advance Directives Directive None Recorded Payers Encounter Date Sequence Insurance Name Policy Number Policy Pinto Covered Member ID Pinto Member ID Guarantor Name 05/03/2024 1 [facility] - DOS ON OR AFTER 2022 - DUAL ELIGIBLE - LONG TERM OPTIONS AND ONE CARE (MEDICARE REPLACEMENT/AD VANTAGE - HMO) Dulce German Duane [id number] Dulce Zepeda Notes Date Note Type Note Provider Name and Address Organization Details Recorded Time 05/03/2024 text/html HPI: Mbr is a 69 year old Serbian speaking female with significant medial hx including but not all inclusive of hypothyroidism, arthritis, herpes, HTN, forgetfulness, amputation of finger (traumatic amp), osteoporosis, persistent depressive disorder, Type 2 DM, asthma, iron deficiency anemia, Jay's Palsy, and MDD. NKDA. [facility] medical mbr transfer call to the CRU. Mbr reported foot wound and DM related. Shayna #[id number] from [employer] assisted with call. Mbr describes left foot wound as red in color and non-open. Mbr describes as dry area on foot that sloughs off and leaves nickel sized red colored area. Mbr would like someone could look at it. Mbr denies fever, SOB or chest pain. Offered INSTED HV and Mbr agreed. Confirmed address and phone/[phone]. Mbr will need Electrician. Instructed Mbr to go to ER if [...] .................... .................... .................... .................... .................... .................... . Raveler Note From Khoa Vazquez: Dispatched to a [...] language barrier all communication done through a sand cleaning machine operator. no history of eczema but did show [...] in all extremities -dcapbtls -stroke scale findings. [facility] [place] and noted it was potentially athletes [...] .................... . Disposition: Fulfilled Bette Queen MD [address] [place] [address],[address] [facility], [place], [address], [employer] 05/03/2024 20:22:50 OBGyn Episode No OBEpisode recorded.
--- OUTSIDE RECORDS SUMMARY | 2024-10-28 10:37 | XMS_ITS | Clinical Summary ---
Author Organization [facility] Address [address] [place] [phone] Care Team Providers Care Embedded Systems Developer Name Role Phone Yola Hernandez MD Primary Care Provider [phone] Social History Tobacco Use Types Packs/Day Years [...] 1955 DTaP,Tdap,and Td Vaccines (1 - Tdap) 01/18/1972 Pneumococcal Vaccine: 50+ Ye ars (1 of 1 - PCV) 2003 Zoster Vaccines (1 of 2) 2003 COVID-19 Vaccine ( - 2023-2 5 season) 2024 Influenza Vaccine (#1) 2024 [...] age to complete this topic Care Teams Embedded Systems Developer Relationship Specialty Start Date End Date Yola Hernandez MD [address] [place] [address] , [address] [facility] D/B/A: [facility] JEAN Mcgowan PCP - General Internal Medicine 02/04/21
--- OUTSIDE RECORDS SUMMARY | 2024-10-28 10:37 | XMS_ITS | Continuity of Care Document ---
Author Organization [facility] Address [address] [place] [phone] Care Team Providers Care Purchaser Name Role Phone Merly NORTON, Patti Priest Primary Care Physician ( [phone] [id number] Date(s): 09/12/24 - 10/12/[address] [address]- Encounter Type: Triage Allergies, Adverse Reactions, Alerts No Known Medication Allergies Immunizations Given and Recorded Vaccine Date Status Refusal Reason SARS-CoV-2 mRNA (zsdasje-[id number]) vax 01/06/22 Given influenza virus vaccine, inactivated [...] THREE TIMES A DAY, # 84 tablet, 1 Refills, Maintenance, 09/12/24 2:42:00 PM EST, [facility], 153, cm, 11/07/23 8:26:00 EDT, Height Start Date: 09/12/24 Status: Ordered Quantity: 84.0 Unit: tablet Repeat [...] 90.0 Unit: tablet Repeat number: 1 Pen Acosta, 31 G x 8 mm BD Ultra [...] mL, 3 Refills, Maintenance, 07/08/22 9:13:00 AM [facility], 153, cm, 05/18/22 13:15:00 EDT, Height, [...] times a day, PRN Pain , Mild, Pronghorn silva aplicacion hasta 4 veces al jody cuando necesita para dolor., # 100 Gm, 1 Refills, Maintenance, 01/31/23 1:38:00 PM EDT, Gel, YESSI Wallamp; [facility], BRAND NAME ONLY PLEASE. MEDICALLY NECESSARY, 1 applicator Topically 4 times a day,PRN:Pain , Mild,Instr:Pronghorn silva aplicacion hasta 4 veces al jody [...] Obstructive sleep apnea syndrome, severe Confirmed Active *[facility] [phone] DIRECTOR NON PROFIT REZA FRAZIER Confirmed Active Social History Social History Type Response Smoking Status Former smoker; Other : quit 45 years ago; entered on: 09/01/15 Sex Sex Representation Female (finding) Patient Care team information Care Team Personnel Name: Merly NORTON, Patti Priest Position: [facility] Resident Member Role: PCP [address]: [address] [place] [address] Telecom: Care Team Related Persons Name: ANKITA VICTORIA Insurance Providers Guarantor name: ISELA OWENS Health Plan Information #: 1 Payer: NA Member Number: NA Policy Number: NA Group Number: NA
== END 2024-10-28 10:35 | disposition home or self-care (01) ==
PROVIDERS: PCP Internal Medicine; Visit Provider Physician Assistant
DX: E11.42 Type 2 diabetes mellitus with diabetic polyneuropathy (principal); I10 Essential (primary) hypertension; E03.9 Hypothyroidism, unspecified; E78.00 Pure hypercholesterolemia, unspecified; Z86.39 Personal history of other endocrine, nutritional and metabolic disease

== ENCOUNTER → 2024-10-28 09:42 | Outpatient (BNVA) | payer OTHER, SELFPAY | PROVIDERS: PCP Internal Medicine; Visit Provider Physician Assistant | DX: E11.42 Type 2 diabetes mellitus with diabetic polyneuropathy (principal); I10 Essential (primary) hypertension; E03.9 Hypothyroidism, unspecified; E78.00 Pure hypercholesterolemia, unspecified | CPT/HCPCS: 82947; 83036; 99202 ==

== ENCOUNTER 2024-12-16 08:09 | Outpatient (AMB) | payer OTHER, SELFPAY ==
[2024-12-16 08:12] VITALS: BP 100/48; PULSE 69; O2SAT 97
--- NOTE | 2024-12-16 08:12 | MHC.OFFVIS ---
Vital Signs 12/16/24 08:12 Height 5 ft Weight 153 lb 14.122 oz BMI 30.0 BP 100/48 L Blood Pressure Location Lt brachial Position Sitting Pulse 69 Pulse Source Pulse Oximeter Pulse Oximetry (%) 97 Oxygen Delivery Method Room Air Intake Visit Reasons: T2DM Intake Note: Patient present today for Type 2 Diabetes Mellitus Last Diabetic eye: 01/2024 Last Podiatry Visit: Doesn't have one Random Glucose: 136 mg/dl HgA1C: 6.9 10/28/24 Ground Service Equipment Mechanic Required: Yes Ground Service Equipment Mechanic Language: Fitting Room Maintenance Mechanic Services: Ground Service Equipment Mechanic Present Ground Service Equipment Mechanic Name: Sydni [id number] Information Interpreted: non-clinical & clinical Accompanied by: Self / Same As Patient Allergies dulaglutide [From [facility]] Adverse Reaction (Intermediate, Verified 12/16/24 08:18) Vomiting metformin Adverse Reaction (Intermediate, Verified 12/16/24 08:18) Diarrhea Medication List - Last Reconciled 12/16/24 by Amber Elizabeth PA-C alendronate 70 mg PO QWEEK 90 days atorvastatin 40 mg PO BEDTIME 90 days baclofen 10 mg PO TID blood sugar diagnostic (FreeStyle Lite Strips) Use 1 test strip once a day blood-glucose meter (FreeStyle Lite Meter kit) As directed blood-glucose sensor (FreeStyle Christian 3 Plus Sensor device) Use daily As directed to monitor glucose blood-glucose,automotive generator repairer,cont (FreeStyle Christian 3 [place]) Use daily As directed to monitor blood glucose cholecalciferol (vitamin D3) 25 mcg PO DAILY 90 days cyanocobalamin (vitamin B-12) (Vitamin B-12) 1,000 mcg PO DAILY [diabetic shoes with inserts As directed] diclofenac sodium 1% (Voltaren Arthritis Pain) 2 grams topical QID 30 days duloxetine 60 mg PO DAILY 30 days duloxetine 30 mg PO DAILY 90 days escitalopram oxalate 20 mg PO DAILY 90 days escitalopram oxalate 10 mg PO DAILY 90 days etodolac 300 mg PO BID 90 days ezetimibe 10 mg PO DAILY fluticasone propionate 50 mcg/actuation (Flonase Allergy Relief) 1 spray intranasal DAILY 30 days folic acid 1 mg PO DAILY gabapentin 600 mg PO TID 30 days ibuprofen 800 mg PO Q8H PRN 30 days lancets As directed lancets As directed Accucheck lancets- daily levothyroxine 100 mcg PO DAILY 90 days linaclotide (Linzess) 145 mcg PO DAILY 90 days lisinopril 2.5 mg PO DAILY 90 days naproxen 500 mg PO BID 90 days pantoprazole 40 mg PO DAILY 90 days pioglitazone (Actos) 30 mg PO DAILY plecanatide (Trulance) 3 mg PO DAILY 90 days sennosides (Senna Lax) 8.6 mg PO BEDTIME PRN 90 days [stair electric chair As directed] valacyclovir 1,000 mg PO DAILY HPI HPI T2DM: Details: Patient is a 69-year-old female who presents today for a f/u visit regarding diabetes she has a significant past medical history of hypertension, hyperlipidemia, diabetes, hypothyroidism, neuropathy, B12 deficiency. Sydni to help with translation Endo: Dm-was diagnosed with diabetes around 1999. Her last A1c was 6.9. She is currently on Ozempic 2 mg weekly, pioglitazone 30 mg daily. -she was unable to reduce her pioglitazone as she was still getting high glucose readings. She does not think that the ozempic is working for her. She is still having high glucose readings, no appetite suppression and some nausea. She has trialed metformin (gi upset), trulicity (vomiting) She tells me today she wants to start insulin. She wants a cgm and would like to get off of actos all together at some point. She states when she wore the sensor last month it was very helpful but her made her nervous that her blood sugars got to over 300. CGM-insurance would not cover. I did provide a sensor here in the office. 5% very hyperglycemic, 18% hypergylcemic, 77% in range, 0% hypoglycemic She states that because she has had diabetes for 25 years she has followed with triage assistant in the past and with diabetic Education. She has a good understanding of her type 2 diabetes and the complications associated with diabetes. She does get sick of checking her fingers regularly as she has been using fingersticks for about 25 years and at different points was also on insulin needing to check more frequently. She reports neuropathy or decreased sensation to her fingertips and she has a history of peripheral neuropathy in her feet as well in his on gabapentin. Has a fam hx of t2dm Her last TSH was elevated and she did have an increased dose of the levothyroxine. CV: Blood pressure in the office is 100/48. She is currently managed on lisinopril 2.5 mg daily. Cholesterol is managed with atorvastatin 40 mg and Zetia 10 mg. [facility] Medical History (Updated 12/16/24 @ 08:33 by Amber Elizabeth PA-C) Moderate major depression B12 deficiency Right sided sciatica Ingrown toenail Right hand pain Skin lesion Bicytopenia Hemifacial spasm Shortness of breath Neuropathy Mild depression Constipation Osteoporosis Vertigo Hypovitaminosis D Pure hypercholesterolemia Hypothyroidism Essential hypertension Diabetes mellitus Surgical History History of total abdominal hysterectomy and bilateral salpingo-oophorectomy History of amputation of right thumb History of total knee replacement History of bariatric surgery Family History Father Diabetes Mother Myocardial infarction Social History Housing: House Alcohol intake: former Patient Tobacco Use Status: Former Tobacco user Tobacco use type: Cigarette e-Cigarette/Vaping Use: Never Used Second Hand Smoke Exposure: No service: No Current occupational status: unemployed Current occupation: rt hand Cognitive needs: No Hearing needs: No Vision needs: No Physical Exam Const Orientation/consciousness: patient oriented x3 Neck Neck: Yes no lymphadenopathy Thyroid: Thyroid normal Carotids: no bruits Resp Auscultation: clear to auscultation bilaterally Cardio Rate: regular rate Rhythm: regular rhythm Heart sounds: S1 normal heart sound present and S2 normal heart sound present Peripheral pulses: dorsalis pedis present Neuro General: patient oriented x3, gait normal and no focal motor deficits Extrem Other: Monofilament sensation intact bilaterally. Vibratory sensation intact bilaterally. Skin intact. General: Yes normal to inspection Results Reviewed Results Reviewed: Laboratory Tests 09/30/24 09/30/24 10/28/24 11:59 12:08 09:58 Creatinine 0.68 Estimated GFR > 60 Glucose (Clinic) 171 H Hgb A1c (Clinic) AST 32 H ALT 23 Alkaline Phosphatase 64 Triglycerides 54 Cholesterol 141 LDL Cholesterol, Calc 65 HDL Cholesterol 66 Urine Creatinine 115.65 Urine Microalbumin 14.0 Microalb/Creat Ratio 12.1 10/28/24 10:07 Creatinine Estimated GFR Glucose (Clinic) Hgb A1c (Clinic) 6.9 H AST ALT Alkaline Phosphatase Triglycerides Cholesterol LDL Cholesterol, Calc HDL Cholesterol Urine Creatinine Urine Microalbumin Microalb/Creat Ratio Assessment & Plan Assessment & Plan (1) Type 2 diabetes mellitus with peripheral neuropathy: Code(s): E11.42 - Type 2 diabetes mellitus with diabetic polyneuropathy Category: Medical Plan: start 10 units of lantus daily reducing actos to 15 mg start mounjaro 2.5 mg weekly Stop the ozempic- ineffective and nauseous with higher dose sensor given today reordered sensors now that she is on insulin discussed signs and symptoms of low glucose that would require emergent medical treatment reviewed rule of 15s (2) Essential hypertension: Code(s): I10 - Essential (primary) hypertension Category: Medical Plan: Low end normal. Last blood pressures were normal. Asymptomatic. Advised to monitor at home and with PCP. will bring back in 3-4 weeks to recheck. (3) Pure hypercholesterolemia: Code(s): E78.00 - Pure hypercholesterolemia, unspecified Category: Medical Plan: WNL. Continue current regimen (4) Insulin dependent type 2 diabetes mellitus: Code(s): E11.9 - Type 2 diabetes mellitus without complications; Z79.4 - long term care pharmacist (current) use of insulin Category: Medical Plan: as above freestyle christian given today Orders: Orders Comprehensive Normanna. Panel Fast Today E11.42 - Type 2 diabetes mellitus with diabetic polyneuropathy, E11.9 - Type 2 diabetes mellitus without complications, Z79.4 - long term care pharmacist (current) use of insulin B Type Natriuretic Peptide Today E11.42 - Type 2 diabetes mellitus with diabetic polyneuropathy, E11.9 - Type 2 diabetes mellitus without complications, Z79.4 - nursing home (current) use of insulin Hemoglobin A1c Today E11.42 - Type 2 diabetes mellitus with diabetic polyneuropathy, E11.9 - Type 2 diabetes mellitus without complications, R73.01 - Impaired fasting glucose, Z79.4 - nursing home (current) use of insulin Medications: New pioglitazone 15 mg PO DAILY 90 tabs 0RF tirzepatide (Mounjaro) for 4 weeks 2.5 mg (0.5 mL) subcut QWEEK 2 mL 2RF insulin glargine (Lantus Solostar U-100 Insulin) 10 units (0.1 mL) subcut DAILY 15 mL 1RF E11.9 - Type 2 diabetes mellitus without complications, Z79.4 - long term care pharmacist (current) use of insulin pen needle, diabetic Use once daily As directed 100 ea 3RF glucose (Dex4 Glucose) until symptoms of low blood sugar are controlled 16 grams (4 x 4 gram) PO Q15M PRN 100 tabs 0RF hypoglycemia Discontinued blood-glucose meter (Accu-Chek Dulce Plus Meter) Discontinued Reason: Doctor's Order As directed test daily 1 ea 0RF E11.42 - Type 2 diabetes mellitus with diabetic polyneuropathy blood sugar diagnostic (Accu-Chek Dulce Plus test strips) Discontinued Reason: Doctor's Order As directed test daily 50 ea 6RF E11.42 - Type 2 diabetes mellitus with diabetic polyneuropathy blood sugar diagnostic (FreeStyle Lite Strips) Discontinued Reason: Duplicate Use 1 test strip once a day 100 ea 1RF E11.42 - Type 2 diabetes mellitus with diabetic polyneuropathy semaglutide (Ozempic) Discontinued Reason: Doctor's Order 2 mg (0.75 mL) subcut QWEEK 3 mL 4RF pioglitazone (Actos) Discontinued Reason: Doctor's Order 30 mg PO DAILY 90 tabs 0RF Coding Level of Care Code Est Pt Level 4 (54331) Complex EM visit Add On G2211 Diagnoses Type 2 diabetes mellitus with peripheral neuropathy E11.42 Essential hypertension I10 Pure hypercholesterolemia E78.00 Insulin dependent type 2 diabetes mellitus E11.9; Z79.4
--- OUTSIDE RECORDS SUMMARY | 2024-12-16 08:20 | XMS_ITS | Data Portability ---
Author Organization [email or web address], [place] in - [facility] Address [address] [place] [phone] Care Team Providers Care Hospice Home Care Coordinator Name Role Phone HIM CCA OTHER Assessment Encounter Date Assessment Date Assessment LastModified by Organization Details LastModified Time 05/03/2024 05/03/2024 I provided real -time medical direction via phone for this encounter and was available for additional phone-based assistance as needed. I have reviewed and agree with the Assessment and Plan as documented by the Tufting Creeler. Patient given the opportunity to ask questions. Our service contacted for an assessment of: Rash As per above, patient patient with 2 areas of her feet that are of concern. Please see uploaded pictures. Neither is symptomatic. This has been present for quite some period of time. Per staff antisubmarine officer on the scene, vital signs are stable. Impression: The 1st picture appears to be postinflammatory hyperpigmentation. The 2nd picture appears to be eczema. Differential diagnosis includes fungal. Could also be trauma related to rubbing from shoes and slippers. Plan: Would recommend observation given it is asymptomatic. Could also consider some bnjt-gxi-nhcruiv hydrocortisone cream. Advised that the patient contact [...] fluticasone propionate 50 mcg/actuatio n nasal spray,suspen chadwcik active Not Available Not Available Not Available [...] Not Available Not Available Not Available FreeStyle [place] Lite kit active Not Available Not Available [...] SNOMED-CT Code Diagnosis ICD10 Code Diagnosis Note [id number] Bette Queen MD Main - [facility] [address] [place] [phone] 05/03/2024 17:28:54 05/03/2024 22:44:04 Localized eruption of skin [id number] R21 Health Concerns Section Related Observation LastModified by Organization Detai ls LastModified Time None Recorded Concern Status LastModified by Organization Details LastModified Time None Recorded Advance Directives Directive None Recorded Payers Encounter Date Sequence Insurance Name Policy Number Policy Pinto Covered Member ID Pinto Member ID Guarantor Name 05/03/2024 1 [facility] - DOS ON OR AFTER 2022 - DUAL ELIGIBLE - FCI OPTIONS AND ONE CARE (MEDICARE REPLACEMENT/AD VANTAGE - HMO) Dulce German Duane [id number] Dulce Zepeda Notes Date Note Type Note Provider Name and Address Organization Details Recorded Time 05/03/2024 text/html HPI: Mbr is a 69 year old Vietnamese speaking female with significant medial hx including but not all inclusive of hypothyroidism, arthritis, herpes, HTN, forgetfulness, amputation of finger (traumatic amp), osteoporosis, persistent depressive disorder, Type 2 DM, asthma, iron deficiency anemia, Jay's Palsy, and MDD. NKDA. [facility] medical mbr transfer call to the CRU. Mbr reported foot wound and DM related. Shayna #[id number] from [employer] assisted with call. Mbr describes left foot wound as red in color and non-open. Mbr describes as dry area on foot that sloughs off and leaves nickel sized red colored area. Mbr would like someone could look at it. Mbr denies fever, SOB or chest pain. Offered INSTED HV and Mbr agreed. Confirmed address and phone/[phone]. Mbr will need Fine Dining Server. Instructed Mbr to go to ER if [...] .................... .................... .................... .................... .................... .................... . Tufting Creeler Note From Khoa Vazquez: Dispatched to a [...] language barrier all communication done through a roll tube setter. no history of eczema but did show [...] in all extremities -dcapbtls -stroke scale findings. [facility] contacted and noted it was potentially athletes [...] .................... . Disposition: Fulfilled Bette Queen MD [address] [place] [address],[address] [facility], [place], [address], [employer] 05/03/2024 20:22:50 OBGyn Episode No OBEpisode recorded.
--- OUTSIDE RECORDS SUMMARY | 2024-12-16 08:20 | XMS_ITS | Clinical Summary ---
[facility] Organization [facility] Address [id number] [place] [phone] Care Team Providers Care Carrier Packer Name Role Phone Yola Hernandez MD Primary Care Provider [phone] Social History Tobacco Use Types Packs/Day Years [...] - 2023-2 5 season) 2024 Influenza Vaccine (Season Ended) 2025 RSV Immunization Adult Patie nts (1 - 1-dose 75+ series) 01/18/2028 HIB [...] age to complete this topic Meningococcal B Vaccine Aged Out No l onger eligible based on patient's age to complete this topic RSV Immunization Patients Un hira 20 months Aged Out No longer eligible b ased on patient's age to complete this topic Varicella Vaccines Aged Out No longer eligible based on patient's age to complete this topic Care Teams Carrier Packer Relationship Specialty Start Date End Date Yola Hernandez MD [address] [place] [address] , [address] [facility] Physician Associ D/B/A: [facility] JEAN Mcgowan PCP - General Internal Medicine 02/04/21
--- OUTSIDE RECORDS SUMMARY | 2024-12-16 08:20 | XMS_ITS | Continuity of Care Document ---
Author Organization [facility] Address [address] [place] [address]- Care Team Providers Care Insurance Job Titles Name Role Phone Merly NORTON, Patti Priest Primary Care Physician ( [phone] [id number] Date(s): 11/12/24 - 12/12/[address] [address]- Encounter Type: Triage Allergies, Adverse Reactions, Alerts No Known Medication Allergies Immunizations Given and Recorded Vaccine Date Status Refusal Reason SARS-CoV-2 mRNA (ztzkyau-cqry-nhntn) vax 01/06/22 Given influenza virus vaccine, inactivated [...] Required Details, Route to Pharmacy Electronically, [facility], 153, cm, 11/07/23 8:26:00 EDT, Height Start Date: 08/12/24 Status: Ordered Quantity: 14.0 Unit: tablet Repeat number: 1 fluticasone 50 mcg/inh nasal spray See Instructions, INSTILL 2 SPRAYS INTO EACH NOSTRIL ONCE DAILY., # 16 Gm, 4 Refills, Maintenance, 05/04/22 10:23:00 AM EDT, [facility], 0, INSTILL 2 SPRAYS INTO EACH NOSTRIL [...] THREE TIMES A DAY, # 84 tablet, 3 Refills, Maintenance, 11/12/24 9:11:00 AM EDT, [facility], 153, cm, 11/07/23 8:26:00 EDT, Height Start Date: 11/12/24 Status: Ordered Quantity: 84.0 Unit: tablet Repeat number: 4 Linzess 145 mcg oral capsule 1 capsule [...] 90.0 Unit: tablet Repeat number: 1 Pen Hayes, 31 G x 8 mm BD Ultra [...] mL, 0 Refills, Maintenance, 08/01/23 4:55:00 PM RYA, [facility], 153, cm, 02/22/23 10:12:00 EDT, Height, [...] times a day, PRN Pain , Mild, Everest silva aplicacion hasta 4 veces al jody cuando necesita para dolor., # 100 Gm, 1 Refills, Maintenance, 01/31/23 1:38:00 PM EDT, Gel, YESSI Wallamp; [facility], BRAND NAME ONLY PLEASE. MEDICALLY NECESSARY, 1 applicator Topically 4 times a day,PRN:Pain , Mild,Instr:Everest silva aplicacion hasta 4 veces al jody [...] pain Confirmed Active Major depressive disorder Confirmed 11/23/20 Active Muscle spasms of neck Confirmed Active Obese class I Confirmed Active Obesity Confirmed Active Obstructive sleep apnea syndrome, severe Confirmed Active *[facility] [phone] CORRECTIONAL MANAGER REZA FRAZIER Confirmed Active Social History Social History Type Response Smoking Status Former smoker; Other : quit 45 years ago; entered on: 09/01/15 Sex Sex Representation Female (finding) Patient Care team information Care Team Personnel Name: Merly NORTON, Patti Priest Position: [facility] Resident Member Role: PCP [address]: [address] [place] [address] Telecom: Care Team Related Persons Name: ANKITA VICTORIA Insurance Providers Guarantor name: ISELA OWENS Health Plan Information #: 1 Payer: NA Member Number: NA Policy Number: NA Group Number: NA
[2024-12-16 08:26] LABS: Glucose, Whole Blood 136 mg/dL (60-115)
== END 2024-12-16 08:45 | disposition home or self-care (01) ==
LOC: HO.ENCR 08:10
PROVIDERS: PCP Internal Medicine; Visit Provider Physician Assistant
DX: E11.42 Type 2 diabetes mellitus with diabetic polyneuropathy (principal); I10 Essential (primary) hypertension; E78.00 Pure hypercholesterolemia, unspecified; Z79.4 Long term (current) use of insulin

== ENCOUNTER → 2024-12-16 08:09 | Outpatient (BNVA) | payer OTHER, SELFPAY | PROVIDERS: PCP Internal Medicine; Visit Provider Physician Assistant | DX: E11.42 Type 2 diabetes mellitus with diabetic polyneuropathy (principal); I10 Essential (primary) hypertension; E78.00 Pure hypercholesterolemia, unspecified; Z79.4 Long term (current) use of insulin | CPT/HCPCS: 82947; 99212 ==

== ENCOUNTER 2024-12-24 07:27 | Outpatient (REF) | payer OTHER, SELFPAY ==
--- OUTSIDE RECORDS SUMMARY | 2024-12-24 08:53 | XMS_ITS | Clinical Summary ---
Author Organization [facility] Address [address] [place] [phone] Care Team Providers Care Taxation Economist Name Role Phone Yola Hernandez MD Primary Care Provider [phone] Social History Tobacco Use Types Packs/Day Years [...] age to complete this topic Care Teams Taxation Economist Relationship Specialty Start Date End Date Yola Hernandez MD [address] [place] [address] , [address] [facility] D/B/A: [facility] JEAN Mcgowan PCP - General Internal Medicine 02/04/21
[2024-12-24 08:54] LABS: MANUAL DIFF FLAG NO
[2024-12-24 09:23] LABS: Basophils Percent Auto 0.2 % (0-2); Eosinophils Absolute Auto 0.1 X10*3/uL (0.0-0.4); Eosinophils Percent Auto 1.6 % (0-4); Hematocrit 33.4 % (37.0-47.0); Hemoglobin 10.6 g/dl (12.0-16.0); Imm Gran Abs Auto 0.01 X10*3/uL (0.00-0.03); Imm Gran Pct Auto 0.2 % (0.0-0.4); Lymphocytes Percent Auto 21.9 % (20-40); Mean Corpuscular HGB Conc 31.7 g/dl (31.0-35.0); Mean Corpuscular Hemoglobin 29.8 pg (27.0-33.0); Mean Corpuscular Volume 93.8 fL (80.0-98.0); Mean Platelet Volume 10.6 fL (9.4-12.3); Monocytes Absolute Auto 0.3 X10*3/uL (0.1-1.2); Monocytes Percent Auto 7.4 % (2-11); Neutrophils Percent Auto 68.7 % (45-73); Platelet Count 263 X10*3/uL (160-400); Red Blood Count 3.56 X10*6/uL (4.20-5.50); White Blood Count 4.3 X10*3/uL (4.8-10.8)
[2024-12-24 10:00] LABS: B Type Natriuretic Peptide 106 pg/mL (<100)
[2024-12-24 10:03] LABS: Alanine Aminotransferase 24 U/L (0-31); Albumin Level 4.2 g/dL (3.5-5.0); Alkaline Phosphatase 71 U/L (39-117); Anion Gap 10 (12-20); Aspartate Amino Transferase 30 U/L (5-31); Bilirubin Total 0.2 mg/dL (0.0-1.0); Blood Urea Nitrogen 10 mg/dL (9-16); Calcium 9.4 mg/dL (8.4-10.2); Carbon Dioxide 30 mmol/L (22-29); Chloride 105 mmol/L (96-108); Cholesterol 185 mg/dL (<200); Estimated Glomerular Filt Rate > 60; Glucose Fasting 117 mg/dL (60-99); Iron 30 mcg/dL (30-160); Percent Iron Saturation 8 % (15-50); Potassium 4.4 mmol/L (3.3-5.1); Sodium 141 mmol/L (135-145); Total Iron Binding Capacity 388 mcg/dL (228-428); Triglycerides 52 mg/dL (<150); Unsaturated Iron Binding 358 ug/dL
[2024-12-24 10:13] LABS: Creatinine Urine 101.29 mg/dL; Microalbum/Creatinine Ratio Ur 11.8 ug/mg cr (<30)
[2024-12-24 10:20] LABS: Vitamin D 25-OH Total 45.9 ng/mL (>30)
[2024-12-24 10:29] LABS: HDL Cholesterol 61 mg/dL (>40); LDL Cholesterol Calculated 114 mg/dL (<100)
[2024-12-24 10:52] LABS: Estimated Average Glucose 140 mg/dL; Hemoglobin A1C 133.0494 umol/L; Hemoglobin A1c % 6.5 % (<6.0); Total Hemoglobin (HGBA1C) 2776.7895 umol/L
[2024-12-24 11:43] LABS: Folate 3.8 ng/mL (> or = 4.0); Vitamin B12 607 pg/mL (200-900)
== END 2024-12-24 07:28 | disposition home or self-care (01) ==
LOC: HO.LAB 07:27
PROVIDERS: Physician Assistant; Absent Provider Internal Medicine; PCP Internal Medicine; Visit Provider Registered Nurse Diabetes Educator
DX: E11.42 Type 2 diabetes mellitus with diabetic polyneuropathy (principal); Z79.4 Long term (current) use of insulin; D64.9 Anemia, unspecified; E53.8 Deficiency of other specified B group vitamins; R80.9 Proteinuria, unspecified; E03.9 Hypothyroidism, unspecified; E55.9 Vitamin D deficiency, unspecified; E78.5 Hyperlipidemia, unspecified
CPT/HCPCS: 36415; 80053; 80061; 82043; 82306; 82570; 82607; 82746; 83036; 83540; 83880; 84443; 85025; 99211

== ENCOUNTER 2024-12-24 07:27 | Outpatient (AMB) | payer OTHER, SELFPAY ==
--- OUTSIDE RECORDS SUMMARY | 2024-12-24 07:30 | XMS_ITS | Data Portability ---
Author Organization [employer] (ABAM), [place] in - [facility] Address [address] [place] [phone] Care Team Providers Care Pulpwood Contractor Name Role Phone HIM CCA OTHER Assessment Encounter Date Assessment Date Assessment LastModified by Organization Details LastModified Time 05/03/2024 05/03/2024 I provided real -time medical direction via phone for this encounter and was available for additional phone-based assistance as needed. I have reviewed and agree with the Assessment and Plan as documented by the Office Services Representative. Patient given the opportunity to ask questions. Our service contacted for an assessment of: Rash As per above, patient patient with 2 areas of her feet that are of concern. Please see uploaded pictures. Neither is symptomatic. This has been present for quite some period of time. Per pediatric nephrologist on the scene, vital signs are stable. Impression: The 1st picture appears to be postinflammatory hyperpigmentation. The 2nd picture appears to be eczema. Differential diagnosis includes fungal. Could also be trauma related to rubbing from shoes and slippers. Plan: Would recommend observation given it is asymptomatic. Could also consider some xpkt-knl-thedret hydrocortisone cream. Advised that the patient contact [...] Not Available Not Available Not Available FreeStyle [place] Lite kit active Not Available Not Available [...] SNOMED-CT Code Diagnosis ICD10 Code Diagnosis Note [id number] Bette Queen MD Main - [facility] [address] [place] [phone] 05/03/2024 17:28:54 05/03/2024 22:44:04 Localized eruption of skin [id number] R21 Health Concerns Section Related Observation LastModified by Organization Detai ls LastModified Time None Recorded Concern Status LastModified by Organization Details LastModified Time None Recorded Advance Directives Directive None Recorded Payers Encounter Date Sequence Insurance Name Policy Number Policy Pinto Covered Member ID Pinto Member ID Guarantor Name 05/03/2024 1 [facility] - DOS ON OR AFTER 2022 - DUAL ELIGIBLE - [employer]CI OPTIONS AND ONE CARE (MEDICARE REPLACEMENT/AD VANTAGE - HMO) Dulce German Duane [id number] Dulce Zepeda Notes Date Note Type Note Provider Name and Address Organization Details Recorded Time 05/03/2024 text/html HPI: Mbr is a 69 year old Luxembourger speaking female with significant medial hx including but not all inclusive of hypothyroidism, arthritis, herpes, HTN, forgetfulness, amputation of finger (traumatic amp), osteoporosis, persistent depressive disorder, Type 2 DM, asthma, iron deficiency anemia, Jay's Palsy, and MDD. NKDA. [facility]SR medical mbr transfer call to the CRU. Mbr reported foot wound and DM related. Shayna #[id number] from [employer] assisted with call. Mbr describes left foot wound as red in color and non-open. Mbr describes as dry area on foot that sloughs off and leaves nickel sized red colored area. Mbr would like someone could look at it. Mbr denies fever, SOB or chest pain. Offered INSTED HV and Mbr agreed. Confirmed address and phone/[phone]. Mbr will need Industrial Design Engineer. Instructed Mbr to go to ER if [...] .................... .................... .................... .................... .................... .................... . Office Services Representative Note From Khoa Vazquez: Dispatched to a [...] language barrier all communication done through a automotive exhaust emissions technician. no history of eczema but did show [...] in all extremities -dcapbtls -stroke scale findings. [facility] contacted and noted it was potentially athletes [...] .................... . Disposition: Fulfilled Bette Queen MD [address] [place] [address],[address] [facility], [place], [address], [employer] 05/03/2024 20:22:50 OBGyn Episode No OBEpisode recorded.
--- OUTSIDE RECORDS SUMMARY | 2024-12-24 07:30 | XMS_ITS | Clinical Summary ---
Author Organization [facility] Address [address] [place] [phone] Care Team Providers Care Spring Encaser Name Role Phone Yola Hernandez MD Primary Care Provider [phone] Social History Tobacco Use Types Packs/Day Years [...] complete this topic RSV Immunization Patients Un hria 20 months Aged Out No longer eligible b ased on patient's age to complete this topic Varicella Vaccines Aged Out No longer eligible based on patient's age to complete this topic Care Teams Spring Encaser Relationship Specialty Start Date End Date Yola Hernandez MD [address] [place] [address] , [address] [facility] Physician Associ D/B/A: [facility] JEAN Mcgowan PCP - General Internal Medicine 02/04/21
--- NOTE | 2024-12-24 08:00 | MHC.AMDMED ---
Intake Intake Visit Reasons: T2DM Director Semiconductor Required: Yes Director Semiconductor Language: Barbadian Accompanied by: Self / Same As Patient Allergies dulaglutide [From Trulicity] Adverse Reaction (Intermediate, Verified 12/16/24 08:18) Vomiting metformin Adverse Reaction (Intermediate, Verified 12/16/24 08:18) Diarrhea HPI Comprehensive Diabetes Asmnt Most Recent Diabetes Results: Hemoglobin A1c 6.2 % 08/02/19 Microalb/Creat Ratio 12.1 ug/mg cr (<30) 09/30/24 Cholesterol 141 mg/dL (<200) 09/30/24 HDL Cholesterol 66 mg/dL (>40) 09/30/24 Triglycerides 54 mg/dL (<150) 09/30/24 Creatinine 0.68 mg/dL (0.5-1.4) 09/30/24 Blood Urea Nitrogen 13 mg/dL (9-16) 09/30/24 Sodium 141 mmol/L (135-145) 09/30/24 Potassium 4.1 mmol/L (3.3-5.1) 09/30/24 Chloride 108 mmol/L (96-108) 09/30/24 Carbon Dioxide 27 mmol/L (22-29) 09/30/24 Calcium 9.2 mg/dL (8.4-10.2) 09/30/24 AST 32 U/L (5-31) H 09/30/24 ALT 23 U/L (0-31) 09/30/24 Total Protein 7.5 g/dL (6.5-8.0) 09/30/24 Albumin 4.3 g/dL (3.5-5.0) 09/30/24 [facility] Medical History (Updated 12/16/24 @ 08:33 by Amber Elizabeth PA-C) Moderate major depression B12 deficiency Right sided sciatica Ingrown toenail Right hand pain Skin lesion Bicytopenia Hemifacial spasm Shortness of breath Neuropathy Mild depression Constipation Osteoporosis Vertigo Hypovitaminosis D Pure hypercholesterolemia Hypothyroidism Essential hypertension Diabetes mellitus Surgical History History of total abdominal hysterectomy and bilateral salpingo-oophorectomy History of amputation of right thumb History of total knee replacement History of bariatric surgery Family History Father Diabetes Mother Myocardial infarction Social History Housing: House Alcohol intake: former Patient Tobacco Use Status: Former Tobacco user Tobacco use type: Cigarette e-Cigarette/Vaping Use: Never Used Second Hand Smoke Exposure: No service: No Current occupational status: unemployed Current occupation: rt hand Cognitive needs: No Hearing needs: No Vision needs: No Assessment & Plan Assessment & Plan (1) Type 2 diabetes mellitus with peripheral neuropathy: Code(s): E11.42 - Type 2 diabetes mellitus with diabetic polyneuropathy Plan: Patient at visit to set up an insert Christian 3+ with cell phone Instructed patient sensors water proof you can shower, or swim do not submerge sensor in water for over 30 minutes Is sensor falls off cannot put back in you need to replace sensor, customer service number given to patient for sensor replacement Sensor placed on the Patient left visit with sensor in warmup Reviewed how to interpret trend arrows Discussed lag time between finger stick and sensor data.? Instructed patient the importance of having blood glucometer for backup testing if needed Reviewed delay of CGM from fingersticks Reminded Pt that if symptoms do not match sensor still needs to check fingersticks. Reviewed with patient how to treat hypoglycemia: Hypoglycemia or blood glucose under 71 use the rule of 15's: If you have your blood glucose meter test your blood glucose, if you do not have your meter still follow below instruction: Keep quick-sugar foods with you at all times.? Take 15 grams of fast acting carbohydrates. Examples are 4 ounces of fruit juice or regular soda pop, 8 ounces fat-free milk, 1 tablespoon of table sugar, honey or corn syrup, jam, one miniature box of raisins, 7-8 gumdrops or Life Savers candy, 4 glucose tablets, and glucose gel.? Retest blood glucose in 15 minutes, if blood glucose is still under 80 mg/dL ,repeat rule of 15's. If blood glucose is under 50, take 30 grams of fast acting carbohydrates Hypoglycemia handout given in Barbadian Portions of this note were created using voice recognition software, please excuse any words or phrases that may have been misinterpreted. Patient Instructions: Instrucciones para el paciente: CGM proporciona informaci?n sobre el control de la glucosa en michelle a lo keri del d?a, incluidas la hiperglucemia y la hipoglucemia. Contin?e controlando la glucosa en michelle seg?n las instrucciones. Siga las pautas de nutrici?n proporcionadas. Informe cualquier molestia de inmediato al proveedor de atenci?n m?dica. Mantente pradip hidratado. Puede ba?arse, ducharse, nadar y hacer ejercicio mientras usa el sensor de glucosa. No sumerja el sensor de glucosa en agua ian m?s de 30 minutos. Retire el sensor para silva resonancia magn?taj o silva tomograf?a computarizada. Evite la m?quina de vianca X en los aeropuertos: retire el sensor o solicite la varita Coding Level of Care Code Est Pt Level 1 (72475) Diagnoses Type 2 diabetes mellitus with peripheral neuropathy E11.42
== END 2024-12-24 08:15 | disposition home or self-care (01) ==
LOC: HO.ENCR 07:28
PROVIDERS: PCP Internal Medicine; Visit Provider Registered Nurse Diabetes Educator
DX: E11.42 Type 2 diabetes mellitus with diabetic polyneuropathy (principal)

== ENCOUNTER 2025-01-03 10:39 | Outpatient (AMB) | payer OTHER, SELFPAY ==
[2025-01-03 11:02] VITALS: BP 110/52; PULSE 67; O2SAT 96; BMI 29.1
--- NOTE | 2025-01-03 11:02 | A.OFFVIS_ITS ---
Vital Signs 01/03/25 11:02 Height 5 ft Weight 149 lb 0.52 oz BMI 29.1 BP 110/52 L Blood Pressure Location Lt brachial Position Sitting Pulse 67 Pulse Source Pulse Oximeter Pulse Oximetry (%) 96 Oxygen Delivery Method Room Air Intake Visit Reasons: T2DM Intake Note: Patient present today for Type 2 Diabetes Mellitus Last Diabetic eye exam: 02/2024 Last Podiatry Visit: Doesn't have one Random Glucose: 129 mg/dl HgA1C: 6.5% 12/24/24 Women'S Studies Lecturer Required: Yes Women'S Studies Lecturer Language: Dirt Bike Mechanic Services: Women'S Studies Lecturer Present Women'S Studies Lecturer Name: Sara Information Interpreted: non-clinical & clinical Accompanied by: Self / Same As Patient All[facility]ies [facility] Adverse Reaction (Intermediate, Verified 01/03/25 11:07) Vomiting metformin Adverse Reaction (Intermediate, Verified 01/03/25 11:07) Diarrhea Medication List - Last Reconciled 01/03/25 by Amber Elizabeth PA-C alendronate 70 mg PO QWEEK 90 days atorvastatin 40 mg PO BEDTIME 90 days baclofen 10 mg PO TID blood sugar diagnostic (FreeStyle Lite Strips) Use 1 test strip once a day blood-glucose meter (FreeStyle Lite Meter kit) As directed blood-glucose sensor (FreeStyle Christian 3 Plus Sensor device) Use daily As directed to monitor glucose blood-glucose,rn pain management,cont (FreeStyle Christian 3 [place]) Use daily As directed to monitor blood glucose cholecalciferol (vitamin D3) 25 mcg PO DAILY 90 days cyanocobalamin (vitamin B-12) (Vitamin B-12) 1,000 mcg PO DAILY [diabetic shoes with inserts As directed] diclofenac sodium 1% (Voltaren Arthritis Pain) 2 grams topical QID 30 days duloxetine 60 mg PO DAILY 30 days duloxetine 30 mg PO DAILY 90 days escitalopram oxalate 20 mg PO DAILY 90 days escitalopram oxalate 10 mg PO DAILY 90 days etodolac 300 mg PO BID 90 days ezetimibe 10 mg PO DAILY fluticasone propionate 50 mcg/actuation (Flonase Allergy Relief) 1 spray intra nasal DAILY 30 days folic acid 1 mg PO DAILY gabapentin 600 mg PO TID 30 days glucose (Dex4 Glucose) 16 grams (4 x 4 gram) PO Q15M PRN ibuprofen 800 mg PO Q8H PRN 30 days insulin glargine (Lantus Solostar U-100 Insulin) 10 units (0.1 mL) subcut DAILY lancets As directed lancets As directed Accucheck lancets- daily levothyroxine 100 mcg PO DAILY 90 days linaclotide (Linzess) 145 mcg PO DAILY 90 days lisinopril 2.5 mg PO DAILY 90 days naproxen 500 mg PO BID 90 days pantoprazole 40 mg PO DAILY 90 days pen needle, diabetic Use once daily As directed plecanatide (Trulance) 3 mg PO DAILY 90 days sennosides (Senna Lax) 8.6 mg PO BEDTIME PRN 90 days [stair electric chair As directed] valacyclovir 1,000 mg PO DAILY HPI HPI T2DM: Details: Patient is a 69-year-old female who presents today for a f/u visit regarding diabetes she has a significant past medical history of hypertension, hyperlipidemia, diabetes, hypothyroidism, neuropathy, B12 deficiency. Sydni to help with translation Endo: Dm-was diagnosed with diabetes around 1999. Her last A1c was 6.5. She is currently on Lantus 10 units nightly, Actos 30 mg, and Mounjaro 2.5 mg weekly. She has trialed metformin (gi upset), trulicity (vomiting), Ozempic caused nausea with no change in blood sugars CGM- 2% very hyperglycemic, 10% hypergylcemic, 85% in range, 3% hypoglycemic She states that because she has had diabetes for 25 years she has followed with tiller worker in the past and with diabetic Education. She has a good understanding of her type 2 diabetes and the complications associated with diabetes. Has a fam hx of t2dm Her last TSH was elevated and she did have an increased dose of the levothyroxine. CV: Blood pressure in the office is 100/52. She is currently managed on lisinopril 2.5 mg daily. Cholesterol is managed with atorvastatin 40 mg and Zetia 10 mg. [facility] Medical History (Updated 01/03/25 @ 11:34 by Amber Elizabeth PA-C) Moderate major depression B12 deficiency Right sided sciatica Ingrown toenail Right hand pain Skin lesion Bicytopenia Hemifacial spasm Shortness of breath Neuropathy Mild depression Constipation Osteoporosis Vertigo Hypovitaminosis D Pure hypercholesterolemia Hypothyroidism Essential hypertension Diabetes mellitus Surgical History History of total abdominal hysterectomy and bilateral salpingo-oophorectomy History of amputation of right thumb History of total knee replacement History of bariatric surgery Family History Father Diabetes Mother Myocardial infarction Social History Housing: House Alcohol intake: former Patient Tobacco Use Status: Former Tobacco user Tobacco use type: Cigarette e-Cigarette/Vaping Use: Never Used Second Hand Smoke Exposure: No service: No Current occupational status: unemployed Current occupation: rt hand Cognitive needs: No Hearing needs: No Vision needs: No Physical Exam Vital Signs: Last Vital Signs Pulse 67 01/03/25 11:02 BP 110/52 L 01/03/25 11:02 Pulse Ox 96 01/03/25 11:02 Oxygen Delivery Method Room Air 01/03/25 11:02 BMI result Body Mass Index 29.1 Const Orientation/consciousness: patient oriented x3 HEENT Ears: hearing grossly normal bilaterally Neck Thyroid: Thyroid normal Lymphatic: no lymphadenopathy noted Resp Auscultation: clear to auscultation bilaterally Cardio Rate: regular rate Rhythm: regular rhythm Heart sounds: S1 normal heart sound present and S2 normal heart sound present Skin General skin exam: no rashes or lesions noted Neuro General: patient oriented x3, gait normal and no focal motor deficits Results Reviewed Results Reviewed: Laboratory Last Values Glucose (Clinic) 129 mg/dL (60-115) H 01/03/25 11:09 Laboratory Tests 12/24/24 08:47 Sodium 141 Potassium 4.4 Chloride 105 Carbon Dioxide 30 H Anion Gap 10 L BUN 10 Creatinine 0.66 Estimated GFR > 60 Hemoglobin A1c % 6.5 H Calcium 9.4 AST 30 ALT 24 B-Natriuretic Peptide 106 H Triglycerides 52 Cholesterol 185 LDL Cholesterol, Calc 114 H HDL Cholesterol 61 Assessment & Plan Assessment & Plan (1) Type 2 diabetes mellitus with peripheral neuropathy: Code(s): E11.42 - Type 2 diabetes mellitus with diabetic polyneuropathy Category: Medical Plan: continue lantus 10 units daily increase mounjaro to 5 mg weekly stop actos recheck labs in 3 months f/u at that time (2) Essential hypertension: Code(s): I10 - Essential (primary) hypertension Category: Medical Plan: d/c lisinopril (3) Elevated brain natriuretic peptide (BNP) level: Code(s): R79.89 - Other specified abnormal findings of blood chemistry Category: Medical Plan: echo ordered does get sob at times and reports lower leg edema times has follow up with pcp (4) Pure hypercholesterolemia: Code(s): E78.00 - Pure hypercholesterolemia, unspecified Category: Medical Plan: Continue current regimen (5) Hypothyroidism: Code(s): E03.9 - Hypothyroidism, unspecified Category: Medical Qualifiers: Hypothyroidism type: unspecified Qualified Code(s): E03.9 - Hypothyroidism, unspecified Plan: increase levothyroxine to 112 mcg check tsh in 8-12 weeks Orders: Orders CA echo transthoracic complete Today I10 - Essential (primary) hypertension, R06.02 - Shortness of breath, R79.89 - Other specified abnormal findings of blood chemistry Comprehensive [place]. Panel Fast Today E03.9 - Hypothyroidism, unspecified, E11.42 - Type 2 diabetes mellitus with diabetic polyneuropathy, E78.00 - Pure hypercholesterolemia, unspecified, I10 - Essential (primary) hypertension, R79.89 - Other specified abnormal findings of blood chemistry Hemoglobin A1c Today E03.9 - Hypothyroidism, unspecified, E11.42 - Type 2 diabetes mellitus with diabetic polyneuropathy, E78.00 - Pure hypercholesterolemia, unspecified, I10 - Essential (primary) hypertension, R73 .01 - Impaired fasting glucose, R79.89 - Other specified abnormal findings of blood chemistry Microalbumin, Random (w Creat) Today E03.9 - Hypothyroidism, unspecified, E11.4 2 - Type 2 diabetes mellitus with diabetic polyneuropathy, E78.00 - Pure hypercholesterolemia, unspecified, I10 - Essential (primary) hypertension, R79.89 - Other specified abnormal findings of blood chemistry Medications: New tirzepatide (Mounjaro) 5 mg (0.5 mL) subcut QWEEK 2 mL 3RF levothyroxine 112 mcg PO DAILY 90 tabs 0RF Discontinued lisinopril Discontinued Reason: Duplicate 2.5 mg PO DAILY 90 days 90 tabs 3RF levothyroxine Discontinued Reason: Doctor's Order 100 mcg PO DAILY 90 days 90 tabs 1RF Coding Level of Care Code Est Pt Level 4 (23960) Complex EM visit Add On G2211 Diagnoses Type 2 diabetes mellitus with peripheral neuropathy E11.42 Essential hypertension I10 Elevated brain natriuretic peptide (BNP) level R79.89 Pure hypercholesterolemia E78.00 Hypothyroidism, unspecified type E03.9 Hypothyroidism type: unspecified
--- OUTSIDE RECORDS SUMMARY | 2025-01-03 11:10 | XMS_ITS | Clinical Summary ---
Author Organization [facility] Address [address] [place] [phone] Care Team Providers Care Machine Cage Maker Name Role Phone Yola Hernandez MD Primary Care Provider [phone] Social History Tobacco Use Types Packs/Day Years [...] age to complete this topic Care Teams Machine Cage Maker Relationship Specialty Start Date End Date Yola Hernandez MD [address] [place] [address] , [address] [facility] D/B/A: [facility] JEAN Mcgowan PCP - General Internal Medicine 02/04/21
--- OUTSIDE RECORDS SUMMARY | 2025-01-03 11:11 | XMS_ITS | Data Portability ---
Author Organization [facility] Address [address] [place] [phone] Care Team Providers Care Blood Bank Booking Clerk Name Role Phone HIM CCA OTHER Assessment Encounter Date Assessment Date Assessment LastModified by Organization Details LastModified Time 05/03/2024 05/03/2024 I provided real -time medical direction via phone for this encounter and was available for additional phone-based assistance as needed. I have reviewed and agree with the Assessment and Plan as documented by the Apprentice Stylist. Patient given the opportunity to ask questions. Our service contacted for an assessment of: Rash As per above, patient patient with 2 areas of her feet that are of concern. Please see uploaded pictures. Neither is symptomatic. This has been present for quite some period of time. Per day care assistant on the scene, vital signs are stable. Impression: The 1st picture appears to be postinflammatory hyperpigmentation. The 2nd picture appears to be eczema. Differential diagnosis includes fungal. Could also be trauma related to rubbing from shoes and slippers. Plan: Would recommend observation given it is asymptomatic. Could also consider some [id number] hydrocortisone cream. Advised that the patient contact [...] Not Available Not Available Not Available FreeStyle [place] Lite kit active Not Available Not Available [...] SNOMED-CT Code Diagnosis ICD10 Code Diagnosis Note [id number] Bette Queen MD Main - instED [address] [place] [phone] 05/03/2024 17:28:54 05/03/2024 22:44:04 Localized eruption of skin [id number] R21 Health Concerns Section Related Observation LastModified by Organization Detai ls LastModified Time None Recorded Concern Status LastModified by Organization Details LastModified Time None Recorded Advance Directives Directive None Recorded Payers Insurance Date Sequence Insurance Name Policy Number Policy Pinto Covered Member ID Pinto Member ID Guarantor Name 05/03/2024 1 [facility] - DOS ON OR AFTER 2022 - DUAL ELIGIBLE - LONG-TERM OPTIONS AND ONE CARE (MEDICARE REPLACEMENT/AD VANTAGE - HMO) Dulce Zepeda [id number] Dulce Zepeda Notes Date Note Type Note Provider Name and Address Organization Details Recorded Time 05/03/2024 text/html HPI: Mbr is a 69 year old Mauritian speaking female with significant medial hx including but not all inclusive of hypothyroidism, arthritis, herpes, HTN, forgetfulness, amputation of finger (traumatic amp), osteoporosis, persistent depressive disorder, Type 2 DM, asthma, iron deficiency anemia, Jay's Palsy, and MDD. NKDA. MSR medical mbr transfer call to the CRU. Mbr reported foot wound and DM related. Shayna #[id number] from [employer] assisted with call. Mbr describes left foot wound as red in color and non-open. Mbr describes as dry area on foot that sloughs off and leaves nickel sized red colored area. Mbr would like someone could look at it. Mbr denies fever, SOB or chest pain. Offered INSTED HV and Mbr agreed. Confirmed address and phone/[phone]. Mbr will need Digital Sales Executive. Instructed Mbr to go to ER if [...] .................... .................... .................... .................... .................... .................... . Apprentice Stylist Note From Khoa Vazquez: Dispatched to a [...] language barrier all communication done through a field sampling technician. no history of eczema but did [...] .................... . Disposition: Fulfilled Bette Queen MD [address] [place] [address],[facility], [place], [address], [employer] 05/03/2024 20:22:50 OBGyn Episode No OBEpisode recorded.
[2025-01-03 11:12] LABS: Glucose, Whole Blood 129 mg/dL (60-115)
== END 2025-01-03 11:43 | disposition home or self-care (01) ==
LOC: HO.ENCR 10:40
PROVIDERS: PCP Internal Medicine; Visit Provider Physician Assistant
DX: E11.42 Type 2 diabetes mellitus with diabetic polyneuropathy (principal); I10 Essential (primary) hypertension; R79.89 Other specified abnormal findings of blood chemistry; E78.00 Pure hypercholesterolemia, unspecified; E03.9 Hypothyroidism, unspecified

== ENCOUNTER → 2025-01-03 10:39 | Outpatient (BNVA) | payer OTHER, SELFPAY | PROVIDERS: PCP Internal Medicine; Visit Provider Physician Assistant | DX: E11.42 Type 2 diabetes mellitus with diabetic polyneuropathy (principal); I10 Essential (primary) hypertension; R79.89 Other specified abnormal findings of blood chemistry; E78.00 Pure hypercholesterolemia, unspecified; E03.9 Hypothyroidism, unspecified; Z79.4 Long term (current) use of insulin; Z79.85 Long-term (current) use of injectable non-insulin antidiabetic drugs; Z79.899 Other long term (current) drug therapy | CPT/HCPCS: 82947; 99212 ==

== ENCOUNTER 2025-02-17 07:12 | Outpatient (REF) | payer OTHER, SELFPAY ==
--- OUTSIDE RECORDS SUMMARY | 2025-02-18 07:14 | XMS_ITS | Clinical Summary ---
Author Organization [facility] Address [address] [place] [phone] Care Team Providers Care Stockbroking Dealer Name Role Phone Yola Hernandez MD Primary Care Provider [phone] Social History Tobacco Use Types Packs/Day Years [...] age to complete this topic Care Teams Stockbroking Dealer Relationship Specialty Start Date End Date Yola Hernandez MD [address] [place] [address] , [address] [facility] D/B/A: [facility] JEAN Mcgowan PCP - General Internal Medicine 02/04/21
--- OUTSIDE RECORDS SUMMARY | 2025-02-18 07:14 | XMS_ITS | Data Portability ---
Author Organization [employer] [facility], [facility] Address [address] [place] [address] Care Team Providers Care Insole And Heel Stiffener Name Role Phone HIM CCA OTHER Assessment Encounter Date Assessment Date Assessment LastModified by Organization Details LastModified Time 05/03/2024 05/03/2024 I provided real -time medical direction via phone for this encounter and was available for additional phone-based assistance as needed. I have reviewed and agree with the Assessment and Plan as documented by the Baseball Hand Sewer. Patient given the opportunity to ask questions. Our service contacted for an assessment of: Rash As per above, patient patient with 2 areas of her feet that are of concern. Please see uploaded pictures. Neither is symptomatic. This has been present for quite some period of time. Per utility gelatin maker on the scene, vital signs are stable. Impression: The 1st picture appears to be postinflammatory hyperpigmentation. The 2nd picture appears to be eczema. Differential diagnosis includes fungal. Could also be trauma related to rubbing from shoes and slippers. Plan: Would recommend observation given it is asymptomatic. Could also consider some fdeo-vrv-bmyepfu hydrocortisone cream. Advised that the patient contact [...] Not Available Not Available Not Available FreeStyle [place] Lite kit active Not Available Not Available [...] [degF] 122 mm[Hg] 58 mm[Hg] Not Available [employer] - production 4 17:29:07 Social History None recorded. Functional Status None recorded. Mental Status None recorded. Family History Nothing Reported. Medical History No medical history recorded. Gynecological HistoryNo gynecological history recorded. Obstetrics History GPAL:G 0 P 0 0 0 0 Past Encounters Encounter ID Performer Location Encounter Start Date Encounter Closed Date Diagnosis/Indication Diagnosis SNOMED-CT Code Diagnosis ICD10 Code Diagnosis Note [id number] Bette Queen MD Main - [facility] [address] [place] [phone] 05/03/2024 17:28:54 05/03/2024 22:44:04 Localized eruption of skin [id number] R21 Health Concerns Section Related Observation LastModified by Organization [place] ls LastModified Time None Recorded Concern Status LastModified by Organization Details LastModified Time None Recorded Advance Directives Directive None Recorded Payers Insurance Date Sequence Insurance Name Policy Number Policy Pinto Covered Member ID Pinto Member ID Guarantor Name 05/03/2024 1 [facility] - DOS ON OR AFTER 2022 - DUAL ELIGIBLE - DETENTION OPTIONS AND ONE CARE (MEDICARE REPLACEMENT/AD VANTAGE - HMO) Dulce Zepeda [id number] Dulce Zepeda Notes Date Note Type Note Provider Name and Address Organization Details Recorded Time 05/03/2024 text/html HPI: Casper is a 69 year old [place]ao Tomean speaking female with significant medial hx including but not all inclusive of hypothyroidism, arthritis, herpes, HTN, forgetfulness, amputation of finger (traumatic amp), osteoporosis, persistent depressive disorder, Type 2 DM, asthma, iron deficiency anemia, Jay's Palsy, and MDD. NKDA. MSR medical mbr transfer call to the CRU. Mbr reported foot wound and DM related. Shayna #[id number] from [employer] assisted with call. Mbr describes left foot wound as red in color and non-open. Mbr describes as dry area on foot that sloughs off and leaves nickel sized red colored area. Mbr would like someone could look at it. Mbr denies fever, SOB or chest pain. Offered INSTED HV and Mbr agreed. Confirmed address and phone/[phone]. Mbr will need Phys Asst. Instructed Mbr to go to ER if [...] .................... .................... .................... .................... .................... .................... . Baseball Hand Sewer Note From Khoa Vazquez: Dispatched to a [...] language barrier all communication done through a closet builder. no history of eczema but did show [...] in all extremities -dcapbtls -stroke scale findings. [facility] contacted and noted it was potentially athletes [...] .................... . Disposition: Fulfilled Bette Queen MD [address] [place] [address],[facility] [facility], [place], [address], [employer] [facility] 05/03/2024 20:22:50 OBGyn Episode No OBEpisode recorded.
== END 2025-02-17 07:13 | disposition home or self-care (01) ==
LOC: HO.HOSX 07:12
PROVIDERS: Visit Provider Physician Assistant
DX: Z13.89 Encounter for screening for other disorder (principal)

== ENCOUNTER 2025-03-10 10:34 | Outpatient (REF) | payer OTHER, SELFPAY ==
[2025-03-10 18:06] LABS: Ferritin 9 ng/mL (10-250)
== END 2025-03-10 10:35 | disposition home or self-care (01) ==
LOC: HO.HKASLDS 10:34
PROVIDERS: PCP Internal Medicine; Visit Provider Psychiatry & Neurology Neurology
DX: G25.81 Restless legs syndrome (principal); E11.42 Type 2 diabetes mellitus with diabetic polyneuropathy; G62.9 Polyneuropathy, unspecified; D50.9 Iron deficiency anemia, unspecified; Z79.899 Other long term (current) drug therapy; Z79.4 Long term (current) use of insulin
CPT/HCPCS: 36415; 82728; 99202

== ENCOUNTER 2025-03-10 10:34 | Outpatient (AMB) | payer OTHER, SELFPAY ==
[2025-03-10 10:36] VITALS: BP 120/60; PULSE 83; O2SAT 98; BMI 26.9
--- NOTE | 2025-03-10 10:36 | MHC.OFFVIS ---
Vital Signs 03/10/25 10:36 Height 5 ft Weight 138 lb BMI 26.9 BP 120/60 Blood Pressure Location Rt brachial Position Sitting Pulse 83 Pulse Source Pulse Oximeter Pulse Oximetry (%) 98 Oxygen Delivery Method Room Air Intake Visit Reasons: I-PRODUCT SAFETY TECHNICIAN: Polyneuropathy Intake Note: NPV polyneuropathy Boiler Erector Required: No Accompanied by: Self / Same As Patient Allergies dulaglutide (From [facility]) Adverse Reaction (Intermediate, Verified 03/10/25 10:40) Vomiting metformin Adverse Reaction (Intermediate, Verified 03/10/25 10:40) Diarrhea Medication List - Last Reconciled 03/10/25 by Madeline Olivo MD alendronate 70 mg PO QWEEK 90 days amitriptyline 10 mg PO BEDTIME 30 days atorvastatin 40 mg PO BEDTIME 90 days baclofen 10 mg PO TID blood sugar diagnostic (FreeStyle Lite Strips) Use 1 test strip once a day blood-glucose meter (FreeStyle Lite Meter kit) As directed blood-glucose sensor (FreeStyle Christian 3 Plus Sensor device) Use daily As directed to monitor glucose blood-glucose,windows deployment technician,cont (FreeStyle Christian 3 Brea) Use daily As directed to monitor blood glucose cholecalciferol (vitamin D3) 25 mcg PO DAILY 90 days cyanocobalamin (vitamin B-12) (Vitamin B-12) 1,000 mcg PO DAILY [diabetic shoes with inserts As directed] diclofenac sodium 1% (Voltaren Arthritis Pain) 2 grams topical QID 30 days duloxetine 30 mg PO DAILY 90 days escitalopram oxalate 20 mg PO DAILY 90 days escitalopram oxalate 10 mg PO DAILY 90 days etodolac 300 mg PO BID 90 days ezetimibe 10 mg PO DAILY fluticasone propionate 50 mcg/actuation (Flonase Allergy Relief) 1 spray intranasal DAILY 30 days folic acid 1 mg PO DAILY gabapentin 600 mg PO TID 30 days glucose (Dex4 Glucose) 16 grams (4 x 4 gram) PO Q15M PRN ibuprofen 800 mg PO Q8H PRN 30 days insulin glargine (Lantus Solostar U-100 Insulin) 10 units (0.1 mL) subcut DAILY lancets As directed lancets As directed Accucheck lancets- daily levothyroxine 112 mcg PO DAILY linaclotide (Linzess) 145 mcg PO DAILY 90 days naproxen 500 mg PO BID 90 days pantoprazole 40 mg PO DAILY 90 days pen needle, diabetic Use once daily As directed plecanatide (Trulance) 3 mg PO DAILY 90 days sennosides (Senna Lax) 8.6 mg PO BEDTIME PRN 90 days [stair electric chair As directed] tirzepatide (Mounjaro) 5 mg (0.5 mL) subcut QWEEK valacyclovir 1,000 mg PO DAILY HPI Comments Details: 70y/o female comes for evaluation of neuropathy and abnormal involuntary movements . Boiler Erector - [phone] Braulio she has h/o diabetes 30 years . she was diagnosed with neuropathy by her PCP -7-8 years ago , saw a neurologist ( ) about 10 years ago. she is concerned about abnormal involuntary jerky movements involving her whole body when she is in bed. AFter the movement her legs are warm and itchy , applying ICE helps.she is able to sleep after. she has this about 3-4 times a week. she has h/o back pain.she has similar abnormal movements when she is sitting during daytime. she has right hemifacial spasm , she gets botox from Dr. Reed. [facility] Medical History (Updated 03/10/25 @ 11:14 by Madeline Olivo MD) Restless legs syndrome (RLS) Moderate major depression B12 deficiency Right sided sciatica Ingrown toenail Right hand pain Skin lesion Bicytopenia Hemifacial spasm Shortness of breath Neuropathy Mild depression Constipation Osteoporosis Vertigo Hypovitaminosis D Pure hypercholesterolemia Hypothyroidism Essential hypertension Diabetes mellitus Surgical History History of total abdominal hysterectomy and bilateral salpingo-oophorectomy History of amputation of right thumb History of total knee replacement History of bariatric surgery Family History Father Diabetes Mother Myocardial infarction Social History Housing: House Alcohol intake: former Patient Tobacco Use Status: Former Tobacco user Tobacco use type: Cigarette e-Cigarette/Vaping Use: Never Used Second Hand Smoke Exposure: No service: No Current occupational status: unemployed Current occupation: rt hand Cognitive needs: No Hearing needs: No Vision needs: No Physical Exam Vital Signs: Last Vital Signs Pulse 83 03/10/25 10:36 BP 120/60 03/10/25 10:36 Pulse Ox 98 03/10/25 10:36 Oxygen Delivery Method Room Air 03/10/25 10:36 BMI result Body Mass Index 26.9 Const General: cooperative, healthy appearing, comfortable and no acute distress Nutritional Appearance: average body habitus Orientation/consciousness: patient oriented x3 Eyes Pupils: Equal, round and reactive pupils present Neuro Other: right facial - decreased movement due to Botox General: patient oriented x3, gait normal, tone normal, moves all extremities and no focal motor deficits Cranial nerves: Yes Facial sensation intact/muscles of mastication intact, Yes Equal, round and reactive pupils present, Yes Bilaterally intact EOM present, Yes Nystagmus not present, Yes Midline tongue present, Yes Symmetric palate elevation present and Yes Ability to bilaterally elevate shoulders present Cognition (Neuro): normal cognition Gait exam (Neuro): Normal gait present Motor exam (neuro): 5/5 motor strength present throughout and Normal motor muscle tone present throughout Deep tendon reflexes (DTR's): Right triceps reflex intensity grade: 2+, Left triceps reflex intensity grade: 2+, Rt Biceps (C5, C6): 2+, Left biceps reflex intensity grade: 2+, Right brachioradialis reflex intensity grade: 2+, Left brachioradialis reflex intensity grade: 2+ and Right patellar reflex intensity grade: 2+ Coordination: [id number] test normal Assessment & Plan Assessment & Plan (1) Restless legs syndrome (RLS): Comment: ? torn defeciency . Patient is already on gabapentin 600mg tid and duloxetine 30mg qd Code(s): G25.81 - Restless legs syndrome Category: Medical (2) Neuropathy: Comment: diabetic Code(s): G62.9 - Polyneuropathy, unspecified Category: Medical Plan EMG/NCS Le for evaluation I will check her ferritin level to see if she needs replacement I will trial her on ropinirole XR 2mg qhs Orders: Orders NE nerve conduction velocity Today G62.9 - Polyneuropathy, unspecified Ferritin Today D50.9 - Iron deficiency anemia, unspecified NE electromyogram (EMG) Today G62.9 - Polyneuropathy, unspecified Medications: New ropinirole ER 2 mg PO BEDTIME 30 tabs 2RF Discontinued duloxetine Discontinued Reason: Patient no longer taking 60 mg PO DAILY 30 days 30 caps 0RF Coding Level of Care Code New Pt Level 4 (51753) Complex EM visit Add On G2211 Diagnoses Restless legs syndrome (RLS) G25.81 Neuropathy G62.9
--- OUTSIDE RECORDS SUMMARY | 2025-03-10 11:37 | XMS_ITS | Clinical Summary ---
Author Organization [facility] ity Address [address] [place] [phone] Care Team Providers Care Asp Net Programmer Name Role Phone Yola Hernandez MD Primary Care Provider [phone] Social History Tobacco Use Types Packs/Day Years [...] Vaccine ( - 2023-2 5 season) 2024 Depression Screening 08/21/2024 Influenza Vaccine (#1) 2025 RSV Immunization Adult Patie nts (1 [...] age to complete this topic Care Teams Asp Net Programmer Relationship Specialty Start Date End Date Yola Hernandez MD [address] [place] [address] , [address] [facility] D/B/A: [facility] In Internal [facility] JEAN Mcgowan PCP - General Internal Medicine 02/04/21
--- OUTSIDE RECORDS SUMMARY | 2025-03-10 11:37 | XMS_ITS | Data Portability ---
Author Organization [facility] Address [address] [place] [address] Care Team Providers Care Wireless Retail Manager Name Role Phone HIM CCA OTHER Assessment Encounter Date Assessment Date Assessment LastModified by Organization Details LastModified Time 05/03/2024 05/03/2024 I provided real -time medical direction via phone for this encounter and was available for additional phone-based assistance as needed. I have reviewed and agree with the Assessment and Plan as documented by the Master Plumber. Patient given the opportunity to ask questions. Our service contacted for an assessment of: Rash As per above, patient patient with 2 areas of her feet that are of concern. Please see uploaded pictures. Neither is symptomatic. This has been present for quite some period of time. Per pulp operator on the scene, vital signs are stable. Impression: The 1st picture appears to be postinflammatory hyperpigmentation. The 2nd picture appears to be eczema. Differential diagnosis includes fungal. Could also be trauma related to rubbing from shoes and slippers. Plan: Would recommend observation given it is asymptomatic. Could also consider some [id number]-dao-aqxqakb hydrocortisone cream. Advised that the patient contact [...] Not Available Not Available Not Available FreeStyle [place] Lite kit active Not Available Not Available [...] blood by Pulse oximetry Body temperature Systolic And Diastolic Provider Name and Address Organization Details Last Updated DateTime 4 16 /min 68 /min 98 % 98 % 98.4 [degF] 122/58 mm[Hg] Not Available [facility] - production 4 [...] SNOMED-CT Code Diagnosis ICD10 Code Diagnosis Note [id number] Bette Queen MD Main - [facility] [address] [place] [phone] 05/03/2024 17:28:54 05/03/2024 22:44:04 Localized eruption of skin 100000644 R21 Health Concerns Section Related Observation LastModified by Organization Detai ls LastModified Time None Recorded Concern Status LastModified by Organization Details LastModified Time None Recorded Advance Directives Directive None Recorded Payers Insurance Date Sequence Insurance Name Policy Number Policy Pinto Covered Member ID Pinto Member ID Guarantor Name 05/03/2024 1 [facility] - DOS ON OR AFTER 2022 - DUAL ELIGIBLE - RESIDENTIAL OPTIONS AND ONE CARE (MEDICARE REPLACEMENT/AD VANTAGE - HMO) Dulce German Zepeda [id number] Dulce Corcoran German Zepeda Notes Date Note Type Note Provider Name and Address Organization Details Recorded Time 05/03/2024 text/html HPI: Mbr is a 69 year old Nauruan speaking female with significant medial hx including but not all inclusive of hypothyroidism, arthritis, herpes, HTN, forgetfulness, amputation of finger (traumatic amp), osteoporosis, persistent depressive disorder, Type 2 DM, asthma, iron deficiency anemia, Jay's Palsy, and MDD. NKDA. [facility] medical mbr transfer call to the CRU. Mbr reported foot wound and DM related. Shayna #[id number] from [employer] assisted with call. Mbr describes left foot wound as red in color and non-open. Mbr describes as dry area on foot that sloughs off and leaves nickel sized red colored area. Mbr would like someone could look at it. Mbr denies fever, SOB or chest pain. Offered [facility] and Mbr agreed. Confirmed address and phone/[phone]. Mbr will need Mail Processing Associate. Instructed Mbr to go to ER if [...] .................... .................... .................... .................... .................... .................... . Master Plumber Note From Khoa Vazquez: Dispatched to a [...] language barrier all communication done through a advertising traffic manager. no history of eczema but did show [...] in all extremities -dcapbtls -stroke scale findings. [facility] contacted and noted it was potentially athletes [...] .................... . Disposition: Fulfilled Bette Queen MD [address] [place] [address],[address], [place], [phone], [facility] 05/03/2024 20:22:50 OBGyn Episode No OBEpisode recorded.
== END 2025-03-10 11:14 | disposition home or self-care (01) ==
LOC: HO.HSMS 10:35
PROVIDERS: PCP Internal Medicine; Visit Provider Psychiatry & Neurology Neurology
DX: G25.81 Restless legs syndrome (principal); G62.9 Polyneuropathy, unspecified
CPT/HCPCS: 99204; G2211

== ENCOUNTER 2025-04-04 09:55 | Outpatient (AMB) | payer OTHER, SELFPAY ==
--- OUTSIDE RECORDS SUMMARY | 2025-04-04 10:12 | XMS_ITS | Clinical Summary ---
Author Organization [facility] ity Address [id number] [place] [phone] Care Team Providers Care Instructional Support Services Director Name Role Phone Yola Hernandez MD Primary Care Provider [phone] Social History Tobacco Use Types Packs/Day Years [...] age to complete this topic Care Teams Instructional Support Services Director Relationship Specialty Start Date End Date Yola Hernandez MD [address] [place] [address] , [address] [facility] D/B/A: Roslyn Gabrielatidivina In Internal Medicine JEAN Mcgowan PCP - General Internal Medicine 02/04/21
[2025-04-04 10:14] VITALS: BP 116/68; PULSE 74; O2SAT 97; BMI 28.0
--- NOTE | 2025-04-04 10:14 | A.OFFVIS_ITS ---
Vital Signs 04/04/25 10:14 Height 5 ft Weight 143 lb 4.807 oz BMI 28.0 BP 116/68 Blood Pressure Location Rt brachial Position Sitting Pulse 74 Pulse Source Pulse Oximeter Pulse Oximetry (%) 97 Oxygen Delivery Method Room Air Intake Visit Reasons: DM Intake Note: Patient presents today for a follow-up on Type 2 Diabetes Mellitus: Last Diabetic eye exam was on: 03/2025, [facility] Last Podiatry exam was on: Patient does not see a Change Number Operator Most recent HbA1c: 5.1%, 04/04/2025 Random Glucose- 88 mg/dL, Today Pawn Broker Required: Yes Pawn Broker Language: Paper Sheeter Name: CAROLINE Porter Accompanied by: Self / Same As Patient Allergies dulaglutide (From [facility]) Adverse Reaction (Intermediate, Verified 04/04/25 10:15) Vomiting metformin Adverse Reaction (Intermediate, Verified 04/04/25 10:15) Diarrhea HPI HPI DM: Details: Patient is a 69-year-old female who presents today for a f/u visit regarding diabetes she has a significant past medical history of hypertension, hyperlipidemia, diabetes, hypothyroidism, neuropathy, B12 deficiency. Saundra to help with translation Endo: Dm-was diagnosed with diabetes around 1999. Her last A1c was 6.5 and today it is 5.1. She is currently on tresiba 10 units nightly, Mounjaro 5 mg weekly. -she states that she has only used the Tresiba a couple times because her blood sugars going lower. The higher dose of Mounjaro has been treating the diabetes effectively for her. She has trialed metformin (gi upset), trulicity (vomiting), Ozempic caused nausea with no change in blood sugars CGM- no information today, sensor fell off She states that because she has had diabetes for 25 years she has followed with residential recycle driver in the past and with diabetic Education. She has a good understanding of her type 2 diabetes and the complications associated with diabetes. She states that she has had a couple low blood sugars around 69. That was picked up on the sensor and the fingerstick with similar. Has somewhat of a decreased appetite with the mounjaro. Has a fam hx of t2dm CV: Blood pressure in the office is 100/52. She is currently managed on lisinopril 2.5 mg daily. Cholesterol is managed with atorvastatin 40 mg and Zetia 10 mg. Her last BNP was elevated. I did order an echo. Not yet completed. She has followed with her PCP in the interim COUNTS INCLUDE [facility] BEDS AT THE [facility] Medical History (Updated 03/10/25 @ 11:14 by Madeline Olivo MD) Restless legs syndrome (RLS) Moderate major depression B12 deficiency Right sided sciatica Ingrown toenail Right hand pain Skin lesion Bicytopenia Hemifacial spasm Shortness of breath Neuropathy Mild depression Constipation Osteoporosis Vertigo Hypovitaminosis D Pure hypercholesterolemia Hypothyroidism Essential hypertension Diabetes mellitus Surgical History History of total abdominal hysterectomy and bilateral salpingo-oophorectomy History of amputation of right thumb History of total knee replacement History of bariatric surgery Family History Father Diabetes Mother Myocardial infarction Social History Housing: House Alcohol intake: former Patient Tobacco Use Status: Former Tobacco user Tobacco use type: Cigarette e-Cigarette/Vaping Use: Never Used Second Hand Smoke Exposure: No service: No Current occupational status: unemployed Current occupation: rt hand Cognitive needs: No Hearing needs: No Vision needs: No Physical Exam Vital Signs: Last Vital Signs Pulse 74 04/04/25 10:14 BP 116/68 04/04/25 10:14 Pulse Ox 97 04/04/25 10:14 Oxygen Delivery Method Room Air 04/04/25 10:14 BMI result Body Mass Index 28.0 Const Orientation/consciousness: patient oriented x3 Neck Neck: Yes no lymphadenopathy Thyroid: Thyroid normal Carotids: no bruits Resp Auscultation: clear to auscultation bilaterally Cardio Rate: regular rate Rhythm: regular rhythm Heart sounds: S1 normal heart sound present and S2 normal heart sound present Peripheral pulses: dorsalis pedis present Neuro General: patient oriented x3, gait normal and no focal motor deficits Extrem Other: Monofilament sensation intact bilaterally. Vibratory sensation intact bilaterally. Skin intact. General: Yes normal to inspection Results AMB Hemoglobin A1c AMB Hemoglobin A1c 5.1 % Last Edit by CAROLINE Porter on 04/04/25 10:38 Results Reviewed Results Reviewed: Laboratory Tests 12/24/24 12/24/24 01/03/25 08:46 08:47 11:09 Creatinine 0.66 Estimated GFR > 60 Glucose (Clinic) 129 H Hemoglobin A1c % 6.5 H Triglycerides 52 Cholesterol 185 LDL Cholesterol, Calc 114 H HDL Cholesterol 61 Urine Creatinine 101.29 Urine Microalbumin 12.0 Microalb/Creat Ratio 11.8 Assessment & Plan Assessment & Plan (1) Type 2 diabetes mellitus with peripheral neuropathy: Code(s): E11.42 - Type 2 diabetes mellitus with diabetic polyneuropathy Category: Medical Plan: We will reduce Mounjaro to 2.5 mg weekly (2) Essential hypertension: Code(s): I10 - Essential (primary) hypertension Category: Medical Plan: WNL. Continue current regimen Orders: Orders AMB Hemoglobin A1c Today E11.9 - Type 2 diabetes mellitus without complications, Z79.4 - middle or intermediate school principal (current) use of insulin Medications: New tirzepatide (Mounjaro) 2.5 mg (0.5 mL) subcut QWEEK 2 mL 11RF Discontinued insulin degludec (Tresiba FlexTouch U-100 insulin) Discontinued Reason: Doctor's Order 10 units (0.1 mL) subcut DAILY 15 mL 3RF tirzepatide (Mounjaro) Discontinued Reason: Doctor's Order 5 mg (0.5 mL) subcut QWEEK 2 mL 3RF Coding Level of Care Code Est Pt Level 4 (47366) Complex EM visit Add On G2211 Diagnoses Type 2 diabetes mellitus with peripheral neuropathy E11.42 Essential hypertension I10
[2025-04-04 10:29] LABS: Glucose, Whole Blood 88 mg/dL (60-115)
== END 2025-04-04 10:38 | disposition home or self-care (01) ==
LOC: HO.ENCR 09:56
PROVIDERS: PCP Internal Medicine; Visit Provider Physician Assistant
DX: E11.42 Type 2 diabetes mellitus with diabetic polyneuropathy (principal); Z79.4 Long term (current) use of insulin; I10 Essential (primary) hypertension

== ENCOUNTER → 2025-04-04 09:55 | Outpatient (BNVA) | payer OTHER, SELFPAY | PROVIDERS: PCP Internal Medicine; Visit Provider Physician Assistant | DX: E11.42 Type 2 diabetes mellitus with diabetic polyneuropathy (principal); E78.5 Hyperlipidemia, unspecified; E03.9 Hypothyroidism, unspecified; Z79.4 Long term (current) use of insulin | CPT/HCPCS: 82947; 83036; 99212 ==

== ENCOUNTER 2025-04-29 08:36 | Outpatient (REF) | payer OTHER, SELFPAY ==
--- NOTE | 2025-04-29 08:39 | EMG_ITS ---
Chief complaint: Bilateral lower extremities numbness Reason for referral: NCV/ EMG Referred by: Madeline Olivo MD Procedure done: Nerve conduction study and EMG was performed on the bilateral lower extremities Bilateral tibial and peroneal motor studies were performed bilateral superficial peroneal and sural sensory studies were performed tibial H reflexes were obtained and EMG needle examination was performed. 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
--- OUTSIDE RECORDS SUMMARY | 2025-04-29 09:40 | XMS_ITS | Clinical Summary ---
Author Organization [facility] ity Address [address] [place] [phone] Care Team Providers Care Register Of Deeds Name Role Phone Yola Hernandez MD Primary Care Provider [phone] Social History Tobacco Use Types Packs/Day Years [...] 2003 Zoster Vaccines (1 of 2) 2003 Depression Screening 08/21/2024 COVID-19 Vaccine (1 - 2023-2 5 season) 2025 Influenza Vaccine (#1) 2025 RSV Immunization Adult [...] age to complete this topic Care Teams Register Of Deeds Relationship Specialty Start Date End Date Yola Hernandez MD [address] [place] [address] , [address] [facility]ician Associ D/B/A: Roslyn Gabrielatidivina In Internal Medicine JEAN Mcgowan PCP - General Internal Medicine 02/04/21
== END 2025-04-29 08:37 | disposition home or self-care (01) ==
LOC: HO.NEURO 08:36
PROVIDERS: PCP Internal Medicine; Visit Provider Psychiatry & Neurology Neurology
DX: G62.9 Polyneuropathy, unspecified (principal); R20.0 Anesthesia of skin
CPT/HCPCS: 95886; 95911

== ENCOUNTER → 2025-04-29 08:39 | Outpatient (BNV) | payer OTHER, SELFPAY | PROVIDERS: PCP Internal Medicine; Visit Provider Psychiatry & Neurology Neurology | DX: G62.89 Other specified polyneuropathies (principal) | CPT/HCPCS: 95886; 95911 ==

== ENCOUNTER 2025-08-01 09:34 | Outpatient (AMB) | payer OTHER, SELFPAY ==
[2025-08-01 09:38] VITALS: BP 148/66; PULSE 107; O2SAT 98; BMI 32.8
--- NOTE | 2025-08-01 09:38 | MHC.OFFVIS ---
Vital Signs 08/01/25 09:38 Height 5 ft Weight 168 lb 3.403 oz BMI 32.8 BP 148/66 H Blood Pressure Location Lt brachial Position Sitting Pulse 107 H Pulse Source Pulse Oximeter Pulse Oximetry (%) 98 Oxygen Delivery Method Room Air Intake Visit Reasons: DM Intake Note: Patient present today for Type 2 Diabetes Mellitus Last Diabetic eye exam: Last exam was on 04/24/25 at [facility]. Last Podiatry Visit: Doesn't have one Random Glucose: 144 mg/dl HgA1C: 6.8% Global Marketing Operations Manager Required: Yes Global Marketing Operations Manager Language: Veneer Matcher Services: Global Marketing Operations Manager Present Global Marketing Operations Manager Name: Sara Information Interpreted: non-clinical & clinical Accompanied by: Self / Same As Patient Allergies dulaglutide (From [facility]) Adverse Reaction (Intermediate, Verified 08/01/25 09:44) Vomiting metformin Adverse Reaction (Intermediate, Verified 08/01/25 09:44) Diarrhea Medication List - Last Reconciled 08/01/25 by Amber Elizabeth PA-C alendronate 70 mg PO QWEEK 90 days amitriptyline 10 mg PO BEDTIME 30 days atorvastatin 40 mg PO BEDTIME 90 days baclofen 10 mg PO TID blood sugar diagnostic (FreeStyle Lite Strips) Use 1 test strip once a day blood-glucose meter (FreeStyle Lite Meter kit) As directed blood-glucose sensor (FreeStyle Christian 3 Plus Sensor device) Use daily As directed to monitor glucose blood-glucose,plastic production machine setter,cont (FreeStyle Christian 3 Magnolia) Use daily As directed to monitor blood glucose cholecalciferol (vitamin D3) 25 mcg PO DAILY 90 days cyanocobalamin (vitamin B-12) (Vitamin B-12) 1,000 mcg PO DAILY [diabetic shoes with inserts As directed] diclofenac sodium 1% (Voltaren Arthritis Pain) 2 grams topical QID 30 days duloxetine 30 mg PO DAILY 90 days escitalopram oxalate 20 mg PO DAILY 90 days escitalopram oxalate 10 mg PO DAILY 90 days etodolac 300 mg PO BID 90 days ezetimibe 10 mg PO DAILY ferrous sulfate 325 mg PO BID fluticasone propionate 50 mcg/actuation (Flonase Allergy Relief) 1 spray intranasal DAILY 30 days folic acid 1 mg PO DAILY gabapentin 600 mg PO TID 30 days glucose (Dex4 Glucose) 16 grams (4 x 4 gram) PO Q15M PRN ibuprofen 800 mg PO Q8H PRN 30 days lancets As directed lancets As directed Accucheck lancets- daily levothyroxine 112 mcg PO DAILY linaclotide (Linzess) 145 mcg PO DAILY 90 days naproxen 500 mg PO BID 90 days pantoprazole 40 mg PO DAILY 90 days pen needle, diabetic Use once daily As directed plecanatide (Trulance) 3 mg PO DAILY 90 days ropinirole ER 2 mg PO BEDTIME sennosides (Senna Lax) 8.6 mg PO BEDTIME PRN 90 days [stair electric chair As directed] tirzepatide (Mounjaro) 5 mg (0.5 mL) subcut QWEEK valacyclovir 1,000 mg PO DAILY HPI HPI DM: Details: Patient is a 70-year-old female who presents today for a f/u visit regarding diabetes she has a significant past medical history of hypertension, hyperlipidemia, diabetes, hypothyroidism, neuropathy, B12 deficiency. Karoline to help with translation Endo: Dm-was diagnosed with diabetes around 1999. Her last A1c was 5.1 and today it is 6.8. She states that going down on the Mounjaro she did notice some increased weight gain and dietary indiscretions. Denies any higher low blood sugars. She has not really been checking them. She is has a supplies at home but prefers a sensor. She is aware that insurance may not cover sensors due to her no longer being on insulin. She has trialed metformin (gi upset), trulicity (vomiting), Ozempic caused nausea with no change in blood sugars CGM- no information today, sensor fell off She states that because she has had diabetes for 25 years she has followed with bag machine operator in the past and with diabetic Education. She has a good understanding of her type 2 diabetes and the complications associated with diabetes. She states that she has had a couple low blood sugars around 69. That was picked up on the sensor and the fingerstick with similar. Has somewhat of a decreased appetite with the mounjaro. Has a fam hx of t2dm CV: Blood pressure in the office is 148/86. She is currently managed on lisinopril 2.5 mg daily. Cholesterol is managed with atorvastatin 40 mg and Zetia 10 mg. Her last BNP was elevated. I did order an echo. She did not complete this. She also failed to follow up with PCP again. [facility] Medical History (Updated 07/23/25 @ 11:48 by Madeline Olivo MD) Restless legs syndrome (RLS) Moderate major depression B12 deficiency Right sided sciatica Ingrown toenail Right hand pain Skin lesion Bicytopenia Hemifacial spasm Shortness of breath Neuropathy Mild depression Constipation Osteoporosis Vertigo Hypovitaminosis D Pure hypercholesterolemia Hypothyroidism Essential hypertension Diabetes mellitus Surgical History History of total abdominal hysterectomy and bilateral salpingo-oophorectomy History of amputation of right thumb History of total knee replacement History of bariatric surgery Family History Father Diabetes Mother Myocardial infarction Social History Housing: House Alcohol intake: former Patient Tobacco Use Status: Former Tobacco user Tobacco use type: Cigarette e-Cigarette/Vaping Use: Never Used Second Hand Smoke Exposure: No service: No Current occupational status: unemployed Current occupation: rt hand Cognitive needs: No Hearing needs: No Vision needs: No Physical Exam Vital Signs: Last Vital Signs Pulse 107 H 08/01/25 09:38 BP 148/66 H 08/01/25 09:38 Pulse Ox 98 08/01/25 09:38 Oxygen Delivery Method Room Air 08/01/25 09:38 BMI result Body Mass Index 32.8 Const Orientation/consciousness: patient oriented x3 HEENT Ears: hearing grossly normal bilaterally Neck Thyroid: Thyroid normal Lymphatic: no lymphadenopathy noted Resp Auscultation: clear to auscultation bilaterally Cardio Rate: regular rate Rhythm: regular rhythm Heart sounds: S1 normal heart sound present and S2 normal heart sound present Skin General skin exam: no rashes or lesions noted Neuro General: patient oriented x3, gait normal and no focal motor deficits Results AMB Hemoglobin A1c AMB Hemoglobin A1c 6.8 % Last Edit by CAROLINE Monterroso on 08/01/25 10:06 Results Reviewed Results Reviewed: Laboratory Last Values Glucose (Clinic) 144 mg/dL (60-115) H 08/01/25 09:47 Laboratory Tests 12/24/24 04/04/25 04/04/25 08:46 10:24 10:27 Glucose (Clinic) 88 Hgb A1c (Clinic) 5.1 Urine Creatinine 101.29 Urine Microalbumin 12.0 Microalb/Creat Ratio 11.8 Assessment & Plan Assessment & Plan (1) Type 2 diabetes mellitus with peripheral neuropathy: Code(s): E11.42 - Type 2 diabetes mellitus with diabetic polyneuropathy Category: Medical Plan: We will increase Mounjaro to 5 mg weekly return in 3 months Advised to complete labs prior to appointment Has testing supplies at home. I encouraged her to use them. (2) Essential hypertension: Code(s): I10 - Essential (primary) hypertension Category: Medical Plan: increase lisinopril to 5 mg Has a blood pressure cuff at home. Advised to monitor blood pressure and to follow up with PCP. She has not been seen in over to go there today to schedule an appointment. recheck labs Advised patient that she needs to also follow up with PCP for the elevated BNP or complete the echo that I had previously ordered. Orders: Orders Comprehensive [place]. Panel Fast Today E11.42 - Type 2 diabetes mellitus with diabetic polyneuropathy, E78.00 - Pure hypercholesterolemia, unspecified, I10 - Essential (primary) hypertension Lipid Panel Today E11.42 - Type 2 diabetes mellitus with diabetic polyneuropathy, E78.00 - Pure hypercholesterolemia, unspecified, I10 - Essential (primary) hypertension AMB Hemoglobin A1c Today E11.42 - Type 2 diabetes mellitus with diabetic polyneuropathy, Z13.9 - Encounter for screening, unspecified Hemoglobin A1c Today E11.42 - Type 2 diabetes mellitus with diabetic polyneuropathy, E78.00 - Pure hypercholesterolemia, unspecified, I10 - Essential (primary) hypertension, R73.01 - Impaired fasting glucose Medications: New lisinopril 5 mg PO DAILY 90 tabs 2RF tirzepatide (Mounjaro) 5 mg (0.5 mL) subcut QWEEK 2 mL 5RF Refilled blood-glucose sensor (FreeStyle Christian 3 Plus Sensor device) Use daily As directed to monitor glucose 6 ea 2RF E11.42 - Type 2 diabetes mellitus with diabetic polyneuropathy, E11.9 - Type 2 diabetes mellitus without complications, Z79.4 - [facility] (current) use of insulin Discontinued tirzepatide (Mounjaro) Discontinued Reason: Doctor's Order 2.5 mg (0.5 mL) subcut QWEEK 2 mL 11RF Patient Instructions: follow up with pcp Coding Level of Care Code Est Pt Level 4 (33185) Add On Problem Visit Only Diagnoses Type 2 diabetes mellitus with peripheral neuropathy E11.42 Essential hypertension I10
[2025-08-01 09:52] LABS: Glucose, Whole Blood 144 mg/dL (60-115)
== END 2025-08-01 09:57 | disposition home or self-care (01) ==
LOC: HO.ENCR 09:35
PROVIDERS: PCP Internal Medicine; Visit Provider Physician Assistant
DX: Z13.9 Encounter for screening, unspecified (principal); E11.42 Type 2 diabetes mellitus with diabetic polyneuropathy; I10 Essential (primary) hypertension

== ENCOUNTER → 2025-08-01 09:34 | Outpatient (BNVA) | payer OTHER, SELFPAY | PROVIDERS: PCP Internal Medicine; Visit Provider Physician Assistant | DX: E11.42 Type 2 diabetes mellitus with diabetic polyneuropathy (principal); I10 Essential (primary) hypertension | CPT/HCPCS: 82947; 83036; 99212 ==